=== PATIENT | female | born 1960 | race Caucasian/White ===

== ENCOUNTER 2019-10-27 08:51 | Inpatient (IN) | payer MEDICARE ==
[~2019-10-27] VITALS: Ht 170.2 cm; Wt 123.4 kg
[2019-10-27] VITALS (13 sets, daily range): BP systolic 84–102; BP diastolic 65–77
[2019-10-27] MEDS ORDERED: SODIUM CHLORIDE 0.9% 1000ML 1,000 ML IV STA (09:07)
--- NOTE | 2019-10-27 09:49 | NUR ---
BARRIOS [address] FOLLOWING STERILE POLICY. SAMPLE OBTAINED AND SENT. ALL PER VERBAL ORDER RUBY MEDEIROS. PT TOLERATED WELL. BARRIOS DRAINING TO GRAVITY.
[2019-10-27] MEDS ORDERED: SODIUM CHLORIDE 0.9% 250ML 250 ML ONE ×2 (09:51→10:33)
[2019-10-27 10:01] LABS: BASOPHILS % 0.5 % (0.0-1.0); EOSINOPHILS # (AUTO) 0.1 (0.0-0.4); EOSINOPHILS % 1.3 % (0.0-6.0); HEMATOCRIT 42.9 % (34.2-44.1); HEMOGLOBIN 14.3 g/dL (12.0-16.0); LYMPHOCYTES # (AUTO) 1.1 (1.0-3.2); LYMPHOCYTES % 28.6 % (18.0-39.1); MEAN CORPUSCULAR HEMOGLOBIN 29.6 pg (28-32); MEAN CORPUSCULAR HGB CONC 33.3 g/dL (31-35); MEAN CORPUSCULAR VOLUME 88.8 fL (81-99); MONOCYTES # (AUTO) 0.5 (0.2-0.8); MONOCYTES % 12.1 % (4.4-11.3); NEUTROPHILS # (AUTO) 2.3 (2.1-6.9); NEUTROPHILS % 57.2 % (38.7-80.0); PLATELET COUNT 111 x10e3/uL (140-360); RED BLOOD COUNT 4.83 x10e6/uL (3.6-5.1); RED CELL DISTRIBUTION WIDTH 18.1 % (11.7-14.4)
[2019-10-27 10:17] LABS: CLARITY,URINE CLEAR (CLEAR); COLOR,URINE YELLOW (YELLOW); LEUKOCYTE ESTERASE ,URINE TRACE (NEGATIVE); NITRITE,URINE POSITIVE (NEGATIVE); PROTEIN,URINE DIPSTICK NEGATIVE (NEGATIVE)
[2019-10-27 10:18] LABS: BILIRUBIN,URINE NEGATIVE (NEGATIVE); KETONES,URINE NEGATIVE (NEGATIVE); URINE UROBILINOGEN 0.2 mg/dL (0.2 - 1)
[2019-10-27 10:29] LABS: CREATINE KINASE MB 1.5 ng/mL (0-5.0)
[2019-10-27 10:30] LABS: ALBUMIN 3.7 g/dL (3.5-5.0); ALBUMIN/GLOBULIN RATIO 1.3 (0.8-2.0); ANION GAP 19.4 mmol/L (8-16); BACTERIA,URINE MANY /HPF; CALCIUM 9.5 mg/dL (8.4-10.2); CREATININE, SERUM 3.06 mg/dL (0.57-1.11); MAGNESIUM 2.3 MG/DL (1.3-2.1); PARTIAL THROMBOPLASTIN TIME 29.7 seconds (23.8-35.5); POTASSIUM 3.4 mmol/L (3.5-5.1); RBC,URINE 0-5 /HPF (0-5)
[2019-10-27 10:31] LABS: MUCUS,URINE FEW (RARE)
[2019-10-27 10:32] LABS: EPITHELIAL CELLS,URINE MODERATE /LPF
[2019-10-27 10:42] LABS: B-TYPE NATRIURETIC PEPTIDE2 2231.2 pg/mL (0-100)
[2019-10-27 10:46] LABS: FREE THYROXINE INDEX 2.8591 (1.4-3.8); THYROID STIMULATING HORMONE 10.23 uIU/mL (0.350-4.940)
--- NOTE | 2019-10-27 10:55 | Diagnostic Imaging Report ---
Chest, 1 view, 10/27/2019. History: Shortness of breath. Comparison: None available. Findings: The cardiomediastinal silhouette and pulmonary vasculature are prominent. There is no focal consolidation or effusion Left subclavian AICD is present. Are no acute osseous or soft tissue abnormalities. Impression: Cardiomegaly and pulmonary vascular congestion. Signed by: Guicho Shields on 10/27/2019 10:53 AM
[2019-10-27] MEDS ORDERED: HYDROCORTISONE SOD SUCCINATE 100 MG VIAL IV ONE (11:00)
[2019-10-27] MEDS ORDERED: ONDANSETRON HCL INJ 2MG/ML 2ML 2 MG/ML VIAL IV PRN (11:15)
[2019-10-27] MEDS ORDERED: LEVOTHYROXINE SODIUM 100 MCG/VIAL IV ONE (11:20)
[2019-10-27] MEDS ORDERED: VANCOMYCIN 1GM/NS 250 ML 250 ML IV ONE (11:30)
[2019-10-27 11:34] LABS: INR 1.38; PROTHROMBIN TIME 17.8 seconds (11.9-14.5)
[2019-10-27] MEDS ORDERED: SODIUM CHLORIDE 0.9% 500ML 500 ML ONE (11:42)
[2019-10-27] MEDS: CEFEPIME 1GM/NS 0.9% 50 ML 50 ML IV SCH ×2 (11:50→23:43)
--- OUTSIDE RECORDS SUMMARY | 2019-10-27 12:14 | XMS REPORT ---
Author Author [facility] Address Unknown Phone Unavailable Care Team Providers Care [place]ene[facility] Department Manager Name Role Phone Pedro BELTRAN Unavailable Unavailable Problems This patient has no known problems. Allergies, Adverse Reactions, Alerts This patient has no known allergies or adverse reactions. Medications This patient has no known medications. Results Test Description Test Time Test Comments Text Results Atomic Results Result Comments CHEST SINGLE (PORTABLE) 2019-10-27 10:52:00 [place] [address] Patient Name: MARIA EUGENIA SALAZAR MR #: [id number] : 1960 Age/Sex: 59/F Req #: [id number] Adm Physician: Ordered by: ZAMZAM BELTRAN MD Report #: [id number] Location: ER Room/Bed: Procedure: [id number] DX/CHEST SINGLE (PORTABLE) Exam Date: 10/27/19 Exam Time: 1000 REPORT STATUS: Signed Chest, 1 view, 10/27/2019. History: Shortness of breath. Comparison: None available. Findings: The cardiomediastinal silhouette and pulmonary vasculature are prominent. There is no focal consolidation or effusion Left subclavian AICD is present. Are no acute osseous or soft tissue abnormalities. Impression: Cardiomegaly and pulmonary vascular congestion. Signed by: Guicho Shields on 10/27/2019 10:53 AM Dictated By: GUICHO SHIELDS MD [id number] Transcribed By: RONNELL on 10/27/19 1053 COPY TO: ZAMZAM BELTRAN MD
[2019-10-27] MEDS ORDERED: SODIUM CHLORIDE 0.9% 500ML 500 ML IV SCH (12:15)
--- NOTE | 2019-10-27 13:56 | NUR ---
200 mL removed from patients harper catheter
--- NOTE | 2019-10-27 14:02 | NUR ---
attempted to call report was told that nurse would call back
--- NOTE | 2019-10-27 14:24 | Diagnostic Imaging Report ---
EXAMINATION: CHEST XRAY LINE PLACEMENT INDICATION: ^RIJ CENTRAL LINE ^[id number] ^[id number] COMPARISON: None FINDINGS: AP view TUBES and LINES: A right internal jugular central venous catheter terminates in the expected location of the upper SVC. Left mechanical cardiac device. LUNGS: Lungs are well inflated. Fullness of the pulmonary vasculature. No focal consolidation. PLEURA: No pleural effusion or pneumothorax. HEART AND MEDIASTINUM: The cardiac silhouette is enlarged. BONES AND SOFT TISSUES: No acute osseous lesion. Soft tissues are unremarkable. UPPER ABDOMEN: No free air under the diaphragm. IMPRESSION: 1. The tip of the right IJ central venous catheter projects over the expected location of the upper SVC. 2. Cardiomegaly with central pulmonary venous congestion. Signed by: Gaston Kwon MD on 10/27/2019 2:21 PM
[2019-10-27] MEDS ORDERED: DIGOXIN125 MCG PO (14:39)
[2019-10-27] MEDS ORDERED: MAGNESIUM OXID400 MG PO (14:39)
[2019-10-27] MEDS ORDERED: BUMETANIDE1 MG PO (14:39)
[2019-10-27] MEDS ORDERED: METOPROLOL SUCC50 MG PO ×2 (14:39)
[2019-10-27] MEDS ORDERED: AMBIEN10 MG PO (14:39)
[2019-10-27] MEDS ORDERED: AMIODARONE HCL200 MG PO (14:39)
[2019-10-27] MEDS ORDERED: PANTOPRAZOLE SO40 MG PO (14:39)
[2019-10-27] MEDS ORDERED: LISINOPRIL2.5 MG PO (14:39)
[2019-10-27] MEDS ORDERED: ZOLPIDEM TARTRATE 10 MG TAB PO PRN (16:30)
[2019-10-27] MEDS ORDERED: BUMETANIDE INJ 0.25MG/ML 4ML VIAL IV NR (16:50)
[2019-10-27] MEDS: FUROSEMIDE INJ 100 MG in SODIUM CHLORIDE 0.9% 100 ML 90 ML IV SCH (18:10)
[2019-10-27 18:52] LABS: CREATINE KINASE 49 IU/L (29-168)
[2019-10-27] MEDS ORDERED: ACETAMINOPHEN 325 MG TAB ONE (21:07)
[2019-10-27] MEDS: ACETAMINOPHEN 325 MG TAB PO PRN (21:23)
--- NOTE | 2019-10-27 23:41 | Consultation ---
DATE OF CONSULTATION: Pulmonary Critical Care consultation CHIEF COMPLAINT: Leg edema, fatigue and unsteadiness. HISTORY OF PRESENT ILLNESS: The patient is a 59-year-old woman with severe cardiac disease. She has a history of cardiomyopathy. She has required several ablations in the past and has had a pacemaker placed. Recently, she has noticed worsening leg swelling. She had a venous duplex done as an outpatient about three weeks ago in a cardiology office that was negative. She also reports worsening fatigue. She notes a decreased appetite and non steadiness. She has some dyspnea. She does not complain of cough or fevers. PAST SURGICAL HISTORY: 1. Status post gastric bypass surgery in 2003. 2. Status post pacemaker placement. 3. Status post cardiac ablations. PAST MEDICAL HISTORY: 1. History of pulmonary embolism about 18 years ago. 2. History of systolic cardiomyopathy and systolic congestive heart failure. 3. History of chronic renal insufficiency. SOCIAL HISTORY: The patient has never smoked. She is not a drinker. FAMILY HISTORY: The patient does not have any significant family history. REVIEW OF SYSTEMS: The patient is afebrile. There is no headache. She has no neck pain. The oropharynx is normal. She does not complain of any chest pain. She notes dyspnea. She does not have cough. She has no abdominal pain. There is no nausea or vomiting. She complains of severe bilateral leg edema. She feels weak and unsteady. PHYSICAL EXAMINATION: VITAL SIGNS: The patient is afebrile. The blood pressure is 93/65 and the saturation is 100%. The pulse is 86. HEENT: Shows no facial swelling or erythema. Oropharynx is normal. LYMPHATIC: Shows no submandibular, cervical, or supraclavicular adenopathy. CARDIAC: Reveals regular rate and rhythm with normal S1, S2. LUNGS: Auscultation of lungs shows clear breath sounds bilaterally. There is no wheezing. ABDOMEN: Soft, nontender. There is no rebound or guarding. EXTREMITIES: Shows 3 to 4+ leg edema. LABORATORY DATA: The white blood cell count is 3.98 and the hemoglobin is 14.3. The platelet count is a 111. The BUN to creatinine ratio is 58 to 3.06. The carbon dioxide is 17. The creatinine is increased to 3.06. Magnesium is 2.3 and the total bilirubin is 2.5. The TSH is 10.2 and a free T4 index is normal. The thyroxine is 7.56 and T3 uptake is 37.8. IMPRESSION: 1. Acute on chronic systolic congestive heart failure. 2. Acute on chronic renal failure. 3. Severe bilateral leg edema. 4. 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 5. Euthyroid sick syndrome. PLAN: 1. Diuresis. 2. Echocardiogram and Cardiology evaluation. 3. Venous duplex. 4. Continue to monitor renal function. 5. Consider nephrology consultation. Geovanny Long MD [facility]/MODL /[id number]
[2019-10-28] VITALS (29 sets, daily range): BP systolic 71–105; BP diastolic 52–70
[2019-10-28 01:45] LABS: CREATINE KINASE MB 0.9 ng/mL (0-5.0)
--- NOTE | 2019-10-28 03:32 | History and Physical ---
CHIEF COMPLAINT: Shortness of breath and inability to walk and palpitations. HISTORY OF PRESENT ILLNESS: Ms. Evelia Larsen with a history of congestive heart failure, history of hypertension, history of pacemaker placement, history of palpitations, and history of hyperlipidemia, was in her usual state of health until the patient started to have increased shortness of breath. Two days prior to admission, the patient had fallen by the side of her sofa and had to scoot all the way to the bathroom and was not able to pick herself up. Brother had to come in and the patient was able to be picked up. The patient had a 2nd episode where she slumped and this triggered the need to come to the Emergency Room. The patient came to the ER, was found to be in congestive heart failure, admitted to the hospital and also started on IV Lasix drip. PAST MEDICAL HISTORY: History of congestive heart failure, history of reflux esophagitis, history of hypertension, history of hyperlipidemia, history of atrial fibrillation, history of insomnia. MEDICATIONS: Medicines she take at home are amiodarone 200 mg twice a day, Bumex 1 mg daily, digoxin 125 mcg daily, lisinopril 2.5 mg daily, magnesium oxide 400 mg daily; metoprolol, total of 100 mg at bedtime; pantoprazole 40 mg, zolpidem 10 mg. SOCIAL HISTORY: No EtOH, no IV drug abuse, and no history of smoking either. REVIEW OF SYSTEMS: Positive for shortness of breath. Negative for chest pain. No nausea. No vomiting or diarrhea. No constipation. No rectal bleeding. No hematochezia. No hematemesis. Positive for orthopnea. Positive for PND. Positive for pedal edema. Positive for headaches too. ALLERGIES: ALLERGIC TO IODINE. PHYSICAL EXAMINATION: GENERAL: The patient is alert and oriented x3, getting IV Lasix at this time. VITAL SIGNS: The patient's temperature is 97.9, pulse of 86, respirations of 25, blood pressure on arrival was 93/65, pulse oximetry of 100%. HEENT: Normocephalic and atraumatic. The patient is morbidly obese. CVS: S1 and S2 are normal. Irregular. ABDOMEN: Nontender and nondistended. EXTREMITIES: Positive for 3+ edema extending all the way to thigh. LABORATORY VALUES: The patient's white count is 3.98, hemoglobin of 14.3, and platelet count of 111. Chemistry show sodium of 138, potassium of 3.4, BUN of 58, creatinine of 3.06 with an estimated GFR of 16, magnesium is 2.3, total bilirubin is 2.5, ALT 17, AST 8. BNP was 2231. TSH of 10.231, and troponin was less than 0.01. Toxicology, digoxin levels normal, less than 0.30. Chest x-ray showed cardiomegaly and pulmonary vascular congestion. ASSESSMENT: Ms. Altamirano Chambers with: 1. Congestive heart failure, acute on chronic. 2. History of recurrent atrial fibrillation. 3. History of AICD placement. 4. Possible myxedema with elevated TSH. 5. Morbid obesity. 6. Debility. 7. Hypertension. 8. Acute kidney injury in the setting of wxweq-cs-pbznydo kidney injury. PLAN: The patient is on IV Lasix. Consult with Dr. Rahman will be done. Consult with Dr. Gaxiola is done. Orders are pending. If cardiac markers continue, monitoring and trending them. Blood cultures and urine cultures were done. Echocardiogram will be done. Further recommendation per clinical course. We will keep the patient in ICU for drip. Currently, the amiodarone will be discontinued. Possible transition into Entresto will be done and depending on the patient's blood pressure and tolerance. MD BRIANNE Dennis/TIERNEYL /[id number]
--- NOTE | 2019-10-28 04:17 | Progress Note ---
DATE: 10/27/2019 Cardiology Progress Note CONSULTING PHYSICIAN: Noah Mejia MD, Interventional Cardiology REASON FOR CONSULTATION: Heart failure. HISTORY OF PRESENT ILLNESS: A pleasant 59-year-old woman, well known to our service with history of morbid obesity, chronic systolic heart failure, nonischemic cardiomyopathy, history of atrial fibrillation, status post PVI, history of PVCs, status post ablation, chronic lymphedema, CKD, presents with worsening edema and worsening shortness of breath. Noted to have a creatinine increased to 3.06, bicarbonate dropped to 70, admitted for further care. She denies any bleeding. She denies any chest pain or syncope. REVIEW OF SYSTEMS: A 12-system review negative except as noted above. PAST MEDICAL HISTORY: As per HPI. ALLERGIES: ALLERGY TO IODINE. SOCIAL HISTORY: Negative for smoking, alcohol, or drugs. FAMILY HISTORY: Noncontributory. PHYSICAL EXAMINATION: VITAL SIGNS: Temperature 97.7, heart rate 89, blood pressure 94/68, respiratory rate 18, O2 saturation 98%, BMI 47.7. GENERAL: No acute distress, alert. NECK: JVD, distended. CHEST: Decreased breath sounds in the lower half of lung powell. CARDIOVASCULAR: Regular rate and rhythm. Normal S1, S2. Systolic ejection murmur. ABDOMEN: Soft. Bowel sounds positive. EXTREMITIES: 3+ edema, pitting. Cardiovascular medications reviewed, metoprolol succinate 50 mg daily, aspirin 81 mg daily. STUDIES: Reviewed. Potassium 3.4, sodium 138, chloride 105, BUN 58, creatinine 3.06, glucose 80. White blood cells 3.9, hemoglobin 14.3, platelets 111. INR 1.38. AST 17, ALT 8, alkaline phosphatase 93. ASSESSMENT AND PLAN: 1. A 59-year-old woman, presents with paroxysmal atrial fibrillation, acute on chronic severe systolic heart failure, acute renal failure, metabolic acidosis, thrombocytopenia, and leukopenia. Recommend initiated Lasix 5 mg/hour and titrate as necessary to achieve negative in and out, monitoring urine output. 2. Low-sodium diet. 3. Consider Renal consultation. 4. For electrolyte abnormalities, particularly metabolic abnormalities including bicarbonate 17. 5. Holding parameter for antihypertensives for now given low normal blood pressure readings. Further recommendations to follow. MD GAETANO Moreno/MODL /[id number]
[2019-10-28 05:20] LABS: HEMATOCRIT 39.7 % (34.2-44.1); HEMOGLOBIN 13.1 g/dL (12.0-16.0); LYMPHOCYTES # (AUTO) 0.6 (1.0-3.2); LYMPHOCYTES % 16.7 % (18.0-39.1); MEAN CORPUSCULAR HEMOGLOBIN 29.4 pg (28-32); MONOCYTES # (AUTO) 0.3 (0.2-0.8); NEUTROPHILS # (AUTO) 2.8 (2.1-6.9); PLATELET COUNT 101 x10e3/uL (140-360); RED BLOOD COUNT 4.46 x10e6/uL (3.6-5.1); RED CELL DISTRIBUTION WIDTH 17.8 % (11.7-14.4)
[2019-10-28 05:48] LABS: ALBUMIN 3.2 g/dL (3.5-5.0); ALBUMIN/GLOBULIN RATIO 1.3 (0.8-2.0); ALKALINE PHOSPHATASE 81 IU/L (40-150); ANION GAP 18.4 mmol/L (8-16); BLOOD UREA NITROGEN 55 mg/dL (7-26); BUN/CREATININE RATIO 20 (6-25); CARBON DIOXIDE 15 mmol/L (22-29); CHLORIDE 107 mmol/L (98-107); CHOL/HDL RATIO 3.4 (3.0-3.6); CHOLESTEROL 124 MD/DL (0-199); CREATININE, SERUM 2.72 mg/dL (0.57-1.11); EST GLOMERULAR FILTRATION RATE 18 ML/MIN (60-); GLUCOSE 124 mg/dL (74-118); HDL CHOLESTEROL 36 MG/DL (40-60); LDL CHOLESTEROL 74 MG/DL (60-130); POTASSIUM 3.4 mmol/L (3.5-5.1); SODIUM 137 mmol/L (136-145); TRIGLYCERIDES 69 MG/DL (0-149)
[2019-10-28 06:25] LABS: ALANINE AMINOTRANSFERASE < 6 IU/L (0-55)
[2019-10-28] MEDS: ASPIRIN 81 MG ENTERIC COATED PO SCH (07:58)
[2019-10-28] MEDS: PANTOPRAZOLE SOD 40 MG TABEC PO SCH (07:58)
[2019-10-28] MEDS ORDERED: DIGOXIN 0.125 MG TAB PO SCH (09:00)
[2019-10-28] MEDS ORDERED: METOPROLOL SUCCINATE 50 MG TAB XL PO SCH (09:00)
[2019-10-28] MEDS: FUROSEMIDE INJ 100 MG in SODIUM CHLORIDE 0.9% 100 ML 90 ML IV SCH (09:16)
--- NOTE | 2019-10-28 09:53 | Progress Note ---
DATE: SUBJECTIVE: The patient admitted for acute congestive heart failure, myxedema, and also for edema. The patient is currently on IV Lasix, diuresing well. Currently also on metoprolol 50 mg daily for rate control. Currently, no chest pain or shortness of breath. Feeling better. The patient is less edematous according to her. Ankles have been able to move better. OBJECTIVE: VITAL SIGNS: Temperature afebrile 98, pulse of 85 to 90s, respiration of 22, blood pressure is running in the lower side 74/59, pulse oximetry of 97% on room air. HEENT: Normocephalic and atraumatic. The patient is morbidly obese. CVS: S1 and S2, irregular rhythm. ABDOMEN: Nontender and nondistended. EXTREMITIES: Positive for edema, extending all the way to the abdomen. LABORATORY VALUES: Today's white count is 3.7, hemoglobin of 13.1, hematocrit of 39.7. Sodium 137, potassium 3.4, BUN of 55, creatinine of 2.72 with total bilirubin of 1.9. Coags normal. D-dimer is 802. ASSESSMENT: Ms. Evelia Larsen with: 1. Atrial fibrillation, paroxysmal. 2. Acute on chronic severe systolic heart failure. 3. Acute renal failure. 4. Metabolic acidosis. 5. Myxedema. 6. Hypertension. 7. History of lymphedema. PLAN: Renal consult has been ordered per Dr. De Leon. Continue chasing electrolytes and continue monitoring and replacing it. Parameters for antihypertensives have been given. Further recommendation per clinical course. We will also do a renal ultrasound to evaluate renal functions. MD BRIANNE Dennis/MODL /[id number]
--- NOTE | 2019-10-28 10:41 | NUR ---
PATIENT AMBULATED ON UNIT ON CONTINUOUS MONITORING. MINIMAL ASSISTANCE WHEN AMBULATING. MODERATE ASSISTANCE WHEN GETTING UP OUT CHAIR OR BED.
[2019-10-28] MEDS: CEFEPIME 1GM/NS 0.9% 50 ML 50 ML IV SCH ×2 (11:23→22:30)
--- NOTE | 2019-10-28 14:14 | Progress Note ---
DATE: 10/28/2019 Cardiology Progress Note SUBJECTIVE: Shortness of breath improving still present. Edema improving on Lasix drip. OBJECTIVE: VITAL SIGNS: Temperature 98 degrees, heart rate 86, blood pressure 81/60, respiratory rate . BMI 47.7. GENERAL: No acute distress. NECK: JVD distended. CHEST: Decreased breath sounds at bilateral bases. CARDIOVASCULAR: systolic murmur. No S3. No S4. ABDOMEN: Soft. Bowel sounds positive. EXTREMITIES: With 2+ edema. CARDIOVASCULAR MEDICATIONS: Reviewed. Aspirin 81 mg daily and furosemide drip. STUDIES: Reviewed. Potassium 3.4, bicarbonate 15, and creatinine 2.7. White blood cells 3.7, hemoglobin 13.1, and platelets of 101. ASSESSMENT AND PLAN: A 59-year-old woman with avnvb-yl-zalouft severe systolic heart failure, metabolic acidosis, acute renal failure, paroxysmal atrial fibrillation, leukopenia, and thrombocytopenia. RECOMMEND: 1. Continue diuretics. 2. Aspirin. 3. Monitor renal function, electrolytes, and metabolic abnormalities. . MD GAETANO Moreno/BIJU /[id number]
--- NOTE | 2019-10-28 14:19 | NUR ---
Nutrition Screen Note RD Recommendation for Physician: - Continue cardiac diet as ordered Plan of Care: RD following, monitoring for tolerance and adequacy Nutrition reason for involvement: Diagnosis - CHF Primary Diagnose(s): 1. Atrial fibrillation, paroxysmal. 2. Acute on chronic severe systolic heart failure. PMH: congestive heart failure, reflux esophagitis, hypertension, hyperlipidemia, atrial fibrillation, insomnia, gastric bypass in 2003 Ht: 67in Wt: 305lb BMI: 47.8kg/m2 IBW: 135lb+/- 10% RD Assessment: (10/28) Chart reviewed. Labs and meds reviewed. 59yo F, who was admitted for CHF and Afib. Currently on IV lasix, diuresing well. Visited pt in the room. Pt reported improvement in her appetite after fluids being removed (>50% PO intake for lunch). Pt denied any nausea or vomiting. No complain of chewing or swallowing difficulty. Pt reported gaining significant amount of weight for the last 2 months due to fluids retention. Pt was able to verbalize understanding of heart healthy diet. Pt reported being compliant with low sodium intake at home. No other question at this time. Will continue to monitor and follow. Current Diet: cardiac diet Malnutrition Evaluation (10/28/2019) The patient does not meet criteria for a specified degree of malnutrition at this time. Will re-evaluate at follow-up as appropriate. Diet Education Needs Assessment: Diet education not indicated. Nutrition Care Level: low Signed: Linda Currie, , RD, LD
--- NOTE | 2019-10-28 16:20 | Progress Note ---
DATE: SUBJECTIVE: The patient is receiving diuretics. She is negative bolus 2 L yesterday. She has less leg edema. She has no chest pain or difficulty breathing. PHYSICAL EXAMINATION: VITAL SIGNS: The patient is afebrile. The vital signs are stable. CARDIAC: Reveals regular rate and rhythm with normal S1 and S2. There are no murmurs or rubs. LUNGS: Auscultation of lungs reveals clear breath sounds bilaterally. There is no wheezing. ABDOMEN: Soft and nontender. There is no rebound or guarding. EXTREMITIES: Shows no leg edema or calf tenderness. There is no cyanosis or clubbing. SKIN: Shows no rashes. IMPRESSION: 1. Sdake-js-ssqvqda systolic congestive heart failure. 2. Zzovh-jf-nlskrgk renal failure. 3. Atrial fibrillation. 4. Abnormal thyroid studies. PLAN: 1. Continue diuresis. 2. Await completion of Nephrology evaluation. 3. Continue current cardiac regimen. 4. Possible transfer out of the intensive came today. Geovanny Long MD [facility]/MODL /[id number]
[2019-10-28] MEDS: SODIUM BICARBONATE 650 MG TAB PO SCH (17:02)
--- NOTE | 2019-10-28 18:21 | Consultation ---
DATE OF CONSULTATION: 10/28/2019 Nephrology Consultation REQUESTING PHYSICIAN: Holland Fritz MD Thank you for allowing us to participate in Ms. Larsen' care. HISTORY OF PRESENT ILLNESS: This is a 59-year-old female, history of end-stage CKD stage 3 in the past, baseline creatinine 1.5 mg% last year, primary nephrosclerosis as well as heart failure related, came with worsening weight gain, swelling, and dyspnea for the last month, although it may have been going longer. Chest x-ray showing fluid overload. She has been started on Lasix drip, diuresing well. Admission creatinine was 3.06, coming down to 2.72. She remained somewhat acidotic. Mild hypokalemia. Magnesium levels were adequate at 2.3. Digoxin level was undetectable. UA is not showing any casts, a few wbc's, so there is concern for urinary tract infection. No protein was noted. No blood was noted. Hemoglobin 13.1. PAST MEDICAL HISTORY: 1. CKD stage 3. 2. Nephrosclerosis. 3. Fluid overload/CHF. 4. Hypertension. 5. Remote history of pulmonary embolism, status post gastric bypass surgery. SOCIAL HISTORY: Does not abuse alcohol. Retired nurse. FAMILY HISTORY: No kidney problems. REVIEW OF SYSTEMS: CONSTITUTIONAL: Feels weak. NEURO: Feels weak. VASCULAR: Leg swelling. RESPIRATORY: Dyspnea is present. CARDIAC: In syncope. Rest of review is negative. PHYSICAL EXAMINATION: GENERAL: Lying in bed, in no distress. VITAL SIGNS: Temperature 98.4, pulse 86, blood pressure 80/61. HEENT: Atraumatic. NECK: With central venous catheter. CHEST: Scattered crackles at the bases. CARDIAC: Normal heart tones. EXTREMITIES: 2 to 3+ edema. ABDOMEN: Benign. NEUROLOGIC: Alert, appropriate. Speech is normal. LABORATORY DATA: White count 3.7, hemoglobin 20670, platelets 101, potassium 3.4, serum CO2 15, creatinine 2.72, BUN 55. Total bilirubin 1.9, albumin 3.2. UA as noted above. X-ray shows fluid overload. ASSESSMENT: 1. Acute kidney injury. 2. Likely cardiorenal syndrome. 3. Consider acute tubular necrosis from urinary tract infection (culture is now showing gram-negative rods). 4. The prerenal component may have been exacerbated by the lisinopril in this situation, although long-term is beneficial if she stays on an CAROL inhibitor/ARB. 5. Consider interstitial nephritis, especially with use of pantoprazole, but less likely given no WBCs. PLAN: 1. Continue Lasix drip. 2. Agree with antibiotics. 3. Avoid NSAIDs and other nephrotoxins. 4. Start sodium bicarbonate p.o. 5. Monitor renal function. 6. Get renal ultrasound. 7. No emergent need for dialysis. Thank you for allowing us to participate in Ms. Larsen' care. Jonas Durand MD [facility]/MODL /[id number]
[2019-10-28] MEDS: MIDODRINE 2.5 MG TAB PO SCH (18:34)
--- NOTE | 2019-10-28 22:09 | Diagnostic Imaging Report ---
EXAM: Renal Ultrasound INDICATION: Acute renal failure. COMPARISON: None TECHNIQUE: Transverse and longitudinal images of the kidneys and bladder were obtained. FINDINGS: Right Kidney: Length: 10.2 cm Appearance: Normal echogenicity. Collecting system: No hydronephrosis Stones: None Cyst/Mass: None Left Kidney: Length: 10.5 cm Appearance: Normal echogenicity. Collecting system: No hydronephrosis Stones: None Cyst/Mass: None Bladder: Decompressed by Morton catheter. IMPRESSION: Normal renal ultrasound exam. Signed by: Dr. Cindy Hernandez M.D. on 10/28/2019 10:07 PM
[2019-10-28] MEDS: ZOLPIDEM TARTRATE 10 MG TAB PO SCH (22:30)
[2019-10-29] VITALS (24 sets, daily range): BP systolic 75–97; BP diastolic 51–72
[2019-10-29 05:25] LABS: BASOPHILS % 0.6 % (0.0-1.0); EOSINOPHILS % 0.9 % (0.0-6.0); HEMATOCRIT 36.3 % (34.2-44.1); HEMOGLOBIN 12.3 g/dL (12.0-16.0); LYMPHOCYTES # (AUTO) 1.2 (1.0-3.2); LYMPHOCYTES % 34.2 % (18.0-39.1); MEAN CORPUSCULAR HEMOGLOBIN 29.8 pg (28-32); MEAN CORPUSCULAR HGB CONC 33.9 g/dL (31-35); MEAN CORPUSCULAR VOLUME 87.9 fL (81-99); MONOCYTES # (AUTO) 0.4 (0.2-0.8); MONOCYTES % 11.7 % (4.4-11.3); NEUTROPHILS # (AUTO) 1.8 (2.1-6.9); NEUTROPHILS % 52.3 % (38.7-80.0); PLATELET COUNT 91 x10e3/uL (140-360); RED BLOOD COUNT 4.13 x10e6/uL (3.6-5.1); RED CELL DISTRIBUTION WIDTH 17.9 % (11.7-14.4)
[2019-10-29] MEDS: MIDODRINE 2.5 MG TAB PO SCH ×3 (05:30→16:13)
[2019-10-29 05:50] LABS: ANION GAP 14.2 mmol/L (8-16); CALCIUM 8.7 mg/dL (8.4-10.2); CREATININE, SERUM 2.46 mg/dL (0.57-1.11); POTASSIUM 3.2 mmol/L (3.5-5.1)
[2019-10-29] MEDS: PANTOPRAZOLE SOD 40 MG TABEC PO SCH (07:33)
[2019-10-29] MEDS: ASPIRIN 81 MG ENTERIC COATED PO SCH (08:13)
[2019-10-29] MEDS: SODIUM BICARBONATE 650 MG TAB PO SCH ×2 (08:13→16:12)
[2019-10-29] MEDS: CEFEPIME 1GM/NS 0.9% 50 ML 50 ML IV SCH ×2 (10:25→23:04)
--- NOTE | 2019-10-29 11:18 | Progress Note ---
DATE: SUBJECTIVE: The patient is a 59-year-old female who comes in with acute congestive heart failure. The patient's EF is at 25%. The patient has a history of pacemaker. No chest pain or shortness of breath, but does have shortness of breath and dyspnea on exertion. No other complaints today. Feeling little bit better, getting continuous IV Lasix. OBJECTIVE: VITAL SIGNS: Temperature is 96.5, pulse of 89, respirations of 26, blood pressure is 80/55 with a MAP of 63, 97% O2 at room air. HEENT: Normocephalic and atraumatic. The patient is morbidly obese. CVS: S1 and S2 normal. Regular rate and rhythm. Systolic murmur present. ABDOMEN: Soft. Bowel sounds are positive. EXTREMITIES: 2+ edema with extension into the thigh area. MEDICATIONS: 1. Sodium bicarb. 2. Aspirin. 3. Pantoprazole. 4. Midrin. 5. Zolpidem. 6. Lasix drip. 7. Zofran as needed. MICROBIOLOGY: The patient's urine grew out Klebsiella pneumonia, sensitive to Rocephin and cefepime. LABORATORY VALUES: White count is 3.42 today, hemoglobin of 12.3, hematocrit of 36.3. Chemistries shows sodium 137, potassium 3.9, BUN of 57, creatinine of 2.46. Uric acid was 12.4. ASSESSMENT: Ms. Evelia Larsen with: 1. Acute on chronic severe systolic heart failure. 2. Metabolic acidosis. 3. Acute renal failure. 4. Paroxysmal atrial fibrillation. 5. Morbid obesity. 6. Debility. 7. Hypertension. 8. Myxedema. PLAN: Continue with IV Lasix. The patient's renal ultrasound showed kidneys within normal limits. Continue with bicarb. We will continue to monitor the patient along with consultants. Further recommendation per clinical course and also Physical therapy consult with Dr. Cecilio Cerda has been done secondary to the nature of her disease and also multiple comorbidities, she might benefit from inpatient rehab at [place]. MD DIMITRIS DennisJ/MODL /[id number]
--- NOTE | 2019-10-29 12:58 | Progress Note ---
DATE: SUBJECTIVE: The patient has been diuresing more. She has less leg edema. She feels better. PHYSICAL EXAMINATION: VITAL SIGNS: The patient is afebrile. The vital signs are stable. CARDIAC: Reveals regular rate and rhythm with normal S1 and S2. LUNGS: Auscultation of lungs reveals clear breath sounds bilaterally. There is no wheezing. ABDOMEN: Soft and nontender. There is no rebound or guarding. EXTREMITIES: Shows 1 to 2+ leg edema. IMPRESSION: 1. Mldbq-hb-xthlnra systolic congestive heart failure. 2. Oqypq-du-lidqiox renal failure. 3. Atrial fibrillation. 4. Abnormal thyroid studies. PLAN: 1. Continue current cardiac regimen. 2. Continue diuresis. 3. Possible inpatient rehab. Geovanny Long MD [facility]/BIJU /[id number]
[2019-10-29] MEDS: FUROSEMIDE INJ 100 MG in SODIUM CHLORIDE 0.9% 100 ML 90 ML IV SCH (16:15)
[2019-10-29] MEDS ORDERED: ONDANSETRON HCL 4 MG ORAL DISINTEGRATING TAB PO PRN (16:15)
[2019-10-29] MEDS ORDERED: POTASSIUM CHLORIDE 20MEQ/100ML 200 ML IV ONE (18:00)
--- NOTE | 2019-10-29 18:54 | Progress Note ---
DATE: 10/29/2019 Cardiology Progress Note SUBJECTIVE: Denies any chest pain or shortness of breath. OBJECTIVE: VITAL SIGNS: Temperature 97.4, heart rate 86, blood pressure 82/56, respiratory rate 17, and O2 saturation 96%. BMI 47.7. GENERAL: In no acute distress. Alert. NECK: No JVD. CHEST: Clear to auscultation. CARDIOVASCULAR: Regular rate and rhythm with occasional extra beats. Systolic murmur. No S3. No S4. On telemetry, paced rhythm with occasional couplet, PACs. ABDOMEN: Soft. Bowel sounds positive. EXTREMITIES: Left upper extremity with 2+ edema from mid arm and forearm and both lower extremities with 1+ edema. CARDIOVASCULAR MEDICATIONS: Reviewed. Midodrine 5 mg t.i.d., Lasix drip, and aspirin 81 mg daily. STUDIES: Reviewed. Potassium is 3.2, bicarbonate 18, creatinine 2.4, and glucose 82. Hemoglobin 12.3 and platelets 91. INR 1.38. ASSESSMENT AND PLAN: 1. Left upper extremity edema, new. 2. Hypokalemia. 3. Ventricular ectopy on telemetry. The patient with history of premature ventricular contractions and paroxysmal atrial fibrillation, status post left atrial appendage ligation. 4. Chronic systolic heart failure with acute decompensation, severe. 5. Acute kidney injury on chronic kidney disease. 6. Hypotension. RECOMMEND: 1. 40 mEq potassium given increased ventricular ectopy today. 2. Renal function seems to be gradually recovering. Continue to monitor. 3. Continue diuretics. Volume status improving. 4. Left upper extremity venous ultrasound to rule out DVT. Noah Mejia MD AFV/MODL /[id number]
[2019-10-29] MEDS: ZOLPIDEM TARTRATE 10 MG TAB PO SCH (23:04)
[2019-10-30] VITALS (22 sets, daily range): BP systolic 72–94; BP diastolic 48–68
[2019-10-30 06:07] LABS: ANION GAP 14.6 mmol/L (8-16); CALCIUM 8.4 mg/dL (8.4-10.2); CREATININE, SERUM 2.1 mg/dL (0.57-1.11); POTASSIUM 3.6 mmol/L (3.5-5.1)
[2019-10-30] MEDS: FUROSEMIDE INJ 100 MG in SODIUM CHLORIDE 0.9% 100 ML 90 ML IV SCH (06:30)
[2019-10-30] MEDS: MIDODRINE 2.5 MG TAB PO SCH (06:40)
[2019-10-30] MEDS: LEVOTHYROXINE SODIUM 50 MCG TAB PO SCH (07:03)
[2019-10-30] MEDS ORDERED: POTASSIUM CHLORIDE 20 MEQ TAB CR PO ONE (07:30)
[2019-10-30] MEDS ORDERED: MIDODRINE HCL 5 MG TABLET ONE (08:31)
[2019-10-30] MEDS: PANTOPRAZOLE SOD 40 MG TABEC PO SCH (08:44)
[2019-10-30] MEDS ORDERED: MIDODRINE 2.5 MG TAB PO ONE (08:50)
[2019-10-30] MEDS ORDERED: LEVOTHYROXINE SODIUM 50 MCG TAB PO ONE (09:00)
--- NOTE | 2019-10-30 09:32 | Consultation ---
DATE OF CONSULTATION: 10/29/2019 REASON FOR CONSULTATION: Debility secondary to congestive heart failure. HISTORY: The patient is a 59-year-old female with a history of congestive heart failure, history of hypertension, pacemaker placement in 2012, who came to the hospital because of increased shortness of breath and 50-pound weight gain per her report. She had a lot of edema to her legs. She has not fallen, but had slid from the chair down to the floor and could not get herself up secondary to the edema. The patient came into the hospital, found to be in congestive heart failure. She is now on IV Lasix drip. I am being asked to evaluate for rehab needs. PAST MEDICAL HISTORY: Includes congestive heart failure, history of reflux esophagitis, hypertension, hyperlipidemia, atrial fibrillation, and history of insomnia. SURGERIES: Include heart ablation x3, appendectomy, tonsillectomy, as well as cholecystectomy. She also had a pacer placed in 2011. FAMILY HISTORY: MIs and cardiac disease runs in the family. HABITS: Nonsmoker, nondrinker. SOCIAL HISTORY: Lives by herself. Now she is taking care of herself. She lives by herself in a one-story home. Sometimes she will use a walker and at other times she will not need it. ALLERGIES: IODINE. CONSTITUTIONAL REVIEW OF SYSTEMS: GENERAL: Easily fatigued. EYES: Denies. EARS: Denies. ORAL: Denies. NECK: Denies. CARDIAC: As above. LUNGS: Easily short of breath. GI: Denies. EXTREMITIES: Lymphedema positive. : Denies. SKIN: Denies. PHYSICAL EXAMINATION: GENERAL: The patient is awake, alert, oriented x3, in no apparent distress. Follows commands without difficulty. EYES: Gaze conjugate. EARS: No acute hearing loss. NECK: No JVD. HEART: Regular. ABDOMEN: Nondistended. EXTREMITIES: Functional range of motion of upper extremity she has edema to both lower extremities. She has good limited range of motion to the legs. Sensory bates, denies any numbness or tingling into her face. Manual muscle testing 4/5 strength in upper extremities bilaterally, lower extremities demonstrates 4-/5 strength throughout. Clonus negative bilaterally. Therapies will continue to work on mobility. IMPRESSION: 1. Congestive heart failure. 2. Debilitated state. 3. History of congestive heart failure. 4. Hypertension. 5. Hyperlipidemia. PLAN: She is still requires ICU treatment. We will continue supportive care to work on improving functional level, mobility, transfers and ADLs. Consider inpatient rehab as she is not back to her prior baseline level of function and plans to go back home and we could also treat her congestive heart failure, optimizing cardiac condition, so she can hopefully participate more in therapy. Precautions falls: Cautioned thank you once again for allowing participate in the care of this very interesting patient. Cecilio Cerda DO RPL/MODL /[id number]
[2019-10-30] MEDS: SODIUM BICARBONATE 650 MG TAB PO SCH ×3 (10:24→22:40)
[2019-10-30] MEDS: ASPIRIN 81 MG ENTERIC COATED PO SCH (10:24)
[2019-10-30] MEDS: METOLAZONE 5 MG TAB PO SCH (10:24)
--- NOTE | 2019-10-30 10:52 | Progress Note ---
DATE: SUBJECTIVE: A 59-year-old female who comes in with acute congestive heart failure. The patient is currently getting IV Lasix. Potassium was replaced yesterday. Complains of some left upper extremity swelling and DVT. Doppler was done. The patient's Doppler was negative. Currently, no chest pain or shortness of breath on exertion. We evaluated for inpatient rehab. PHYSICAL EXAMINATION: VITAL SIGNS: Temperature is 98.4, pulse of 89, respiration 17, blood pressure is 87/59, and pulse oximetry of 97% on room air. HEENT: Normocephalic and atraumatic. The patient is morbidly obese. CVS: S1 and S2. Regular. Ejection systolic murmur present. ABDOMEN: Nontender, nondistended. Positive for edema. EXTREMITIES: No clubbing, no cyanosis. Positive for edema. LABORATORY VALUES: White count from 10/29/2019 was 3.42, hemoglobin of 12.3 and 36.3 hematocrit. Chemistries today show sodium 137, potassium 3.6, BUN of 51, creatinine of 2.10. Uric acid was 12.4 yesterday. Calcium normal. PTH and parathyroid hormones are pending. MICROBIOLOGY: Klebsiella pneumoniae in urine culture. ASSESSMENT: 1. Acute on chronic severe systolic heart failure. 2. Metabolic acidosis. 3. Urinary tract infection. 4. Morbid obesity. 5. Paroxysmal atrial fibrillation. 6. Hypertension. 7. Myxedema. PLAN: 1. Plan today would be to continue with IV Lasix. Potassium will be replaced, 40 mEq of potassium will be given p.o. 2. The patient will be restarted back on Synthroid 50 mcg. The patient also will be getting continue with Lasix and the patient is also on midodrine for hypotensive episodes, MAP is maintained above 60. 3. Further recommendation per clinical course. We will continue to monitor the patient. The patient also has inpatient rehab consult with Dr. Cerda for physical therapy in lieu of her multiple comorbidities. MD BRIANNE Dennis/MODL /[id number]
[2019-10-30] MEDS: CEFEPIME 1GM/NS 0.9% 50 ML 50 ML IV SCH ×2 (12:09→22:40)
[2019-10-30] MEDS: MIDODRINE HCL 5 MG TABLET PO SCH ×2 (12:09→17:42)
--- NOTE | 2019-10-30 13:48 | Progress Note ---
DATE: 10/30/2019 Cardiology Progress Note SUBJECTIVE: No complaints. OBJECTIVE: VITAL SIGNS: Temperature 97.4, heart rate 86, respiratory rate 19, blood pressure 84/64, and O2 saturation 98% on room air. GENERAL: No acute distress. Alert. NECK: No JVD. CHEST: Clear to auscultation. CARDIOVASCULAR: Regular rate and rhythm. Normal S1 and S2. ABDOMEN: Soft. Bowel sounds positive. EXTREMITIES: 1+ edema. TELEMETRY: Paced rhythm. CARDIOVASCULAR MEDICATIONS: Reviewed. Midodrine 10 mg t.i.d., aspirin 81 mg daily, Bumex 2 mg q.4 hours, and metolazone 20 mg daily. STUDIES: Reviewed. Creatinine 2.1, bicarbonate 19, potassium 3.6, sodium 137, chloride 107, BUN 51, and glucose 85. Hemoglobin 12.3, white blood cells 3.4, and platelets 91. INR 1.3. ASSESSMENT AND PLAN: 1. A 59-year-old woman presents with rwhdb-kz-alqmbax severe systolic heart failure, tnufi-co-rqyxzno kidney injury. 2. Volume overload. 3. Paroxysmal atrial fibrillation with history of ablation and left atrial appendage ligation. 4. History of premature ventricular contractions, status post previous ablation with continued premature ventricular contractions and medical treatment. RECOMMEND: 1. On telemetry, less ectopy today after potassium repletion yesterday. Continue to monitor electrolytes. 2. Volume status improved. Continue diuretics. 3. Midrin uptitrated today, maintaining MAP over 60. The patient asymptomatic from blood pressure standpoint with no evidence of worsening with orthostatic position change so far. Noah Mejia MD AFNuria/MODL /[id number]
[2019-10-30] MEDS ORDERED: BUMETANIDE INJ 0.25MG/ML 4ML VIAL IV SCH (14:00)
[2019-10-30] MEDS ORDERED: ALBUMIN 5% 0.05 GM/ML BTL IV STA (16:05)
--- NOTE | 2019-10-30 16:09 | Progress Note ---
DATE: Pulmonary Critical Care Progress Note SUBJECTIVE: The patient has been switched to intermittent on Bumex. She is on amiodarone. She has less leg edema. She has less dyspnea. She is awaiting possible transfer to inpatient rehab. PHYSICAL EXAMINATION: VITAL SIGNS: The patient is afebrile. The vital signs are stable. HEENT: Shows no facial swelling or erythema. CARDIAC: Reveals regular rate and rhythm with normal S1 and S2. LUNGS: Auscultation of lungs reveals clear breath sounds bilaterally. There is no wheezing. ABDOMEN: Soft, nontender. There is no rebound or guarding. EXTREMITIES: Shows some edema, but less than previously. IMPRESSION: 1. Acute on chronic systolic congestive heart failure. 2. Acute on chronic renal insufficiency. PLAN: 1. Continue current cardiac regimen. 2. Possible transfer to inpatient rehab. 3. Continue to monitor creatinine. MD FABIO Larson/BIJU /[id number]
[2019-10-30] MEDS ORDERED: ALBUMIN 5% 250ML 500 ML IV ONE (16:15)
[2019-10-30] MEDS: BUMETANIDE 1 MG TAB PO SCH ×2 (17:42→22:40)
--- NOTE | 2019-10-30 19:00 | NUR ---
Bedside report received from Linda Rhodes RN. Care plan reviewed. Pt reports no pain or discomfort at this time, no signs of distress noted.
[2019-10-30] MEDS: ZOLPIDEM TARTRATE 10 MG TAB PO SCH (22:40)
[2019-10-31] VITALS (14 sets, daily range): BP systolic 80–96; BP diastolic 53–71
[2019-10-31] MEDS: MIDODRINE HCL 5 MG TABLET PO SCH ×3 (06:18→18:27)
[2019-10-31] MEDS: LEVOTHYROXINE SODIUM 50 MCG TAB PO SCH (06:18)
[2019-10-31 08:03] LABS: BASOPHILS % 0.3 % (0.0-1.0); EOSINOPHILS # (AUTO) 0.1 (0.0-0.4); EOSINOPHILS % 2.5 % (0.0-6.0); HEMATOCRIT 36.5 % (34.2-44.1); HEMOGLOBIN 12.2 g/dL (12.0-16.0); LYMPHOCYTES # (AUTO) 0.9 (1.0-3.2); LYMPHOCYTES % 25.9 % (18.0-39.1); MEAN CORPUSCULAR HEMOGLOBIN 29.6 pg (28-32); MEAN CORPUSCULAR HGB CONC 33.4 g/dL (31-35); MEAN CORPUSCULAR VOLUME 88.6 fL (81-99); MONOCYTES # (AUTO) 0.5 (0.2-0.8); MONOCYTES % 13.5 % (4.4-11.3); NEUTROPHILS % 57.5 % (38.7-80.0); PLATELET COUNT 80 x10e3/uL (140-360); RED BLOOD COUNT 4.12 x10e6/uL (3.6-5.1); RED CELL DISTRIBUTION WIDTH 17.7 % (11.7-14.4)
[2019-10-31 08:24] LABS: ALBUMIN 3.3 g/dL (3.5-5.0); ALBUMIN/GLOBULIN RATIO 1.4 (0.8-2.0); ANION GAP 14.1 mmol/L (8-16); CREATININE, SERUM 1.86 mg/dL (0.57-1.11); POTASSIUM 4.1 mmol/L (3.5-5.1)
[2019-10-31] MEDS: SODIUM BICARBONATE 650 MG TAB PO SCH ×3 (08:26→22:05)
[2019-10-31] MEDS: ASPIRIN 81 MG ENTERIC COATED PO SCH (08:26)
[2019-10-31] MEDS: PANTOPRAZOLE SOD 40 MG TABEC PO SCH (08:26)
[2019-10-31] MEDS: BUMETANIDE 1 MG TAB PO SCH ×3 (08:26→22:05)
[2019-10-31] MEDS: METOLAZONE 5 MG TAB PO SCH (08:26)
--- NOTE | 2019-10-31 10:08 | Progress Note ---
DATE: SUBJECTIVE: The patient is a 59-year-old female who came in with acute on chronic congestive heart failure. The patient was on IV Lasix drip till yesterday, currently off it and is on Bumex. The patient's blood pressure is still not trending down on midodrine at this time. No chest pain. No shortness of breath. She was able to walk a few feet with the help of walker and physical therapy. No chest pains at this time. OBJECTIVE: VITAL SIGNS: Temperature is 97.6, pulse of 87, respirations of 21, blood pressure is 96/71, latest one is 84/60, pulse oximetry of 96% on room air. HEENT: Normocephalic, atraumatic. The patient is morbidly obese. CVS: S1 and S2 normal. Regular rate and rhythm. ABDOMEN: Nontender, nondistended. EXTREMITIES: No clubbing, no cyanosis. Positive for 2+ edema. LABORATORY VALUES: White count is 3.42 from 10/29. Chemistries from yesterday show potassium of 3.6, BUN of 51, creatinine of 2.10, which is improving. Parathyroid hormone was 85 and PTH is still pending. Microbiology, Klebsiella pneumonia is noted. ASSESSMENT: Ms. Evelia Larsen with: 1. Acute on chronic severe congestive heart failure. 2. Metabolic acidosis. 3. Urinary tract infection. 4. Morbid obesity. 5. Paroxysmal atrial fibrillation. 6. Mixed edema and hypertension. PLAN: 1. The patient has been taken off the IV drip. We will continue on Bumex. 2. The patient will continue on Bumex. 3. Sodium bicarb for metabolic acidosis. The patient is on telemetry, can be transferred to the [facility]. Physical therapy is on board. The patient is also on midodrine for her hypertension. Dr. Cerda is working with the patient, possible discharge if possible to inpatient rehab. Further recommendations per clinical course and thyroid replacement has been done right now. MD BRIANNE Dennis/BIJU /[id number]
[2019-10-31] MEDS: CEFEPIME 1GM/NS 0.9% 50 ML 50 ML IV SCH ×2 (11:34→22:52)
--- NOTE | 2019-10-31 16:56 | Progress Note ---
DATE: 10/31/2019 Cardiology Progress Note SUBJECTIVE: No new complaints. OBJECTIVE: VITAL SIGNS: Temperature 97.9, heart rate 87, blood pressure 90/58 with a MAP of 69, respiratory rate 21, and O2 saturation 96%. BMI 47.7. GENERAL: In no acute distress. Alert. NECK: No JVD. CHEST: Clear to auscultation. CARDIOVASCULAR: Regular rate and rhythm. Normal S1 and S2. Paced rhythm on telemetry with occasional PVCs. ABDOMEN: Soft. Bowel sounds positive. EXTREMITIES: With 2+ edema to both lower extremities, overall improving. Warm extremities throughout. CARDIOVASCULAR MEDICATIONS: Reviewed. Midodrine 10 mg t.i.d.,metolazone 20 mg daily, bumetanide 2 mg t.i.d., and aspirin 81 mg daily. STUDIES: Reviewed. Creatinine 1.8, hemoglobin 12.2, platelets 80, and white blood cells 3.5. ASSESSMENT AND PLAN: A 59-year-old woman with dhxte-kq-bvtlkxi severe systolic heart failure, wlhrr-vf-ngwtitr kidney injury, presented with volume overload, paroxysmal atrial fibrillation, status post prior atrial fibrillation ablation and appendage ligation, premature ventricular contractions with history of prior premature ventricular contractions ablation, hypertension on midodrine, and lymphedema affecting both lower extremities. RECOMMENDATIONS: 1. Continue current cardiovascular medications. Continue to monitor renal function. Recovery being observed with renal function. Volume status continues to improve. Continue diuretics. Appreciate Nephrology input. 2. Continue midodrine, asymptomatic, low blood pressure reads. The patient normally ranges low baseline. Maintain MAP over 60. Noah Mejia MD AFV/MODL /[id number]
--- NOTE | 2019-10-31 19:21 | NUR ---
reports received, patient in bed awake alert oriented. verbalizes needs, no distress noted. continue monitoring on intake output and blood pressure.
[2019-10-31] MEDS: ZOLPIDEM TARTRATE 10 MG TAB PO SCH (22:05)
[2019-11-01] VITALS (14 sets, daily range): BP systolic 79–120; BP diastolic 56–80
[2019-11-01 05:38] LABS: BASOPHILS % 0.3 % (0.0-1.0); EOSINOPHILS # (AUTO) 0.1 (0.0-0.4); EOSINOPHILS % 3.4 % (0.0-6.0); HEMATOCRIT 35.9 % (34.2-44.1); LYMPHOCYTES # (AUTO) 1.3 (1.0-3.2); LYMPHOCYTES % 33.7 % (18.0-39.1); MEAN CORPUSCULAR HEMOGLOBIN 29.5 pg (28-32); MEAN CORPUSCULAR HGB CONC 33.4 g/dL (31-35); MEAN CORPUSCULAR VOLUME 88.2 fL (81-99); MONOCYTES # (AUTO) 0.5 (0.2-0.8); MONOCYTES % 13.2 % (4.4-11.3); NEUTROPHILS # (AUTO) 1.9 (2.1-6.9); NEUTROPHILS % 48.9 % (38.7-80.0); PLATELET COUNT 76 x10e3/uL (140-360); RED BLOOD COUNT 4.07 x10e6/uL (3.6-5.1); RED CELL DISTRIBUTION WIDTH 17.7 % (11.7-14.4)
[2019-11-01] MEDS: LEVOTHYROXINE SODIUM 50 MCG TAB PO SCH (05:45)
[2019-11-01] MEDS: MIDODRINE HCL 5 MG TABLET PO SCH ×3 (05:45→17:41)
[2019-11-01 06:05] LABS: ANION GAP 15.3 mmol/L (8-16); CALCIUM 9.5 mg/dL (8.4-10.2); CREATININE, SERUM 1.78 mg/dL (0.57-1.11); MAGNESIUM 1.6 MG/DL (1.3-2.1); PHOSPHORUS 2.9 MG/DL (2.3-4.7); POTASSIUM 4.3 mmol/L (3.5-5.1)
--- NOTE | 2019-11-01 07:23 | Progress Note ---
DATE: SUBJECTIVE: The patient is in ICU 193. She has been downgraded to Med/Surg. Currently, the patient is off Lasix IV and on Bumex. The patient has no chest pain or shortness of breath. She does complain of some tremors, which is new onset. No nausea, vomiting, diarrhea and no orthopnea or PND. OBJECTIVE: VITAL SIGNS: Temperature is 97.6, pulse of 84, respirations of 15, blood pressure is 92/77 with a map of 82. HEENT: Normocephalic, atraumatic. The patient is morbidly obese. CVS: S1 and S2. Regular. ABDOMEN: Soft, nontender, nondistended. EXTREMITIES: 2+ edema still present. LABORATORY VALUES: The patient's white count is 3.6, platelet count of 76, which is trending down. RDW 17.7. Chemistry, sodium 137, potassium 4.3, BUN of 54, creatinine of 1.78. Coags, D-dimer was 802 on 10/27/2019. Microbiology, Klebsiella pneumoniae in urine. ASSESSMENT: Evelia Larsen is a 59-year-old female with: 1. Acute on chronic congestive heart failure. Continue on Bumex. 2. Hypertension. Good MAP. Continue with midodrine. 3. Hypothyroidism. Continue on levothyroxine. 4. Morbid obesity. 5. Paroxysmal atrial fibrillation. 6. Hypertension. PLAN: Continue on Bumex, sodium bicarb for metabolic acidosis. Continue with physical therapy. Plan to discharge to Med/Surg and possible transfer to rehab at [place] for continuum of therapy. Further recommendation per clinical course. We will continue monitor the patient. The patient is stable. Holland Fritz MD ASJ/MODL /[id number]
[2019-11-01] MEDS: PANTOPRAZOLE SOD 40 MG TABEC PO SCH (07:57)
[2019-11-01] MEDS: SODIUM BICARBONATE 650 MG TAB PO SCH ×2 (08:00→17:40)
[2019-11-01] MEDS: METOLAZONE 5 MG TAB PO SCH (08:00)
[2019-11-01] MEDS: BUMETANIDE 1 MG TAB PO SCH ×3 (08:00→20:34)
[2019-11-01] MEDS: ASPIRIN 81 MG ENTERIC COATED PO SCH (08:00)
--- NOTE | 2019-11-01 10:39 | Progress Note ---
DATE: 11/01/2019 Cardiology Progress Note SUBJECTIVE: No complaints. OBJECTIVE: VITAL SIGNS: Temperature 96.7, heart rate 86, blood pressure 91/66, respiratory rate 17, O2 saturation 97%. GENERAL: In no acute distress, alert. NECK: No JVD. CHEST: Clear to auscultation. CARDIOVASCULAR: Regular rate and rhythm. S1, S2. No S3 or S4. Systolic ejection murmur. ABDOMEN: Soft. Bowel sounds positive. EXTREMITIES: 2+ edema to both lower extremities. The patient sitting down since 4 o'clock this morning. TELEMETRY: Paced rhythm. CARDIOVASCULAR MEDICATIONS: Reviewed. Midodrine 10 mg every 8 hours, aspirin 81 mg daily, bumetanide 2 mg t.i.d., metolazone 20 mg daily. STUDIES: Reviewed. Sodium 137, potassium 4.3, chloride 100, bicarbonate 26, BUN 54, creatinine 1.78, glucose 84. White blood cells 3.8, hemoglobin 12, platelets 76. INR 1.3. PT 17.8, PTT 29.7. AST 17, ALT 8, alkaline phosphatase 75, total bilirubin is 2. ASSESSMENT AND PLAN: A 59-year-old woman presents with significant volume overload, lymphedema, acute on chronic severe systolic heart failure, MARIA FERNANDA on chronic kidney disease, history of atrial fibrillation status post ablation and appendage ligation, history of PVCs status post ablation. Recommend continue current cardiovascular medications and monitor electrolytes. MD GAETANO Moreno/MODL /[id number]
[2019-11-01] MEDS: CEFEPIME 1GM/NS 0.9% 50 ML 50 ML IV SCH ×2 (11:00→22:30)
[2019-11-01 11:13] LABS: CREATININE,URINE RANDOM 23.71 mg/dL (47-110); TOTAL PROTEIN, URINE 15.8 mg/dL (1-14)
[2019-11-01 11:16] LABS: PROTEIN/CREATININE RATIO,URINE 0.66
--- NOTE | 2019-11-01 18:00 | NUR ---
Pt ambulated in hallway with physical therapy this morning. Pt reports decrease in leg swelling. SCDs on bilateral legs throughout shift. Per Dr. Rahman Morton catheter may be removed. Morton removed at 1800, due to void at 0000. Pt educated on due to void time. Will continue to monitor the patient.
[2019-11-01] MEDS ORDERED: DEXTROSE 5% 1,000 ML IV SCH (19:30)
[2019-11-01] MEDS: ZOLPIDEM TARTRATE 10 MG TAB PO SCH (22:00)
[2019-11-02] VITALS (9 sets, daily range): BP systolic 91–108; BP diastolic 56–83
[2019-11-02 05:17] LABS: ALBUMIN 3.8 g/dL (3.5-5.0); ALBUMIN/GLOBULIN RATIO 1.3 (0.8-2.0); ANION GAP 21.2 mmol/L (8-16); CALCIUM 10.5 mg/dL (8.4-10.2); CREATININE, SERUM 1.77 mg/dL (0.57-1.11); POTASSIUM 4.2 mmol/L (3.5-5.1)
[2019-11-02] MEDS: MIDODRINE HCL 5 MG TABLET PO SCH ×3 (05:21→17:56)
[2019-11-02] MEDS: LEVOTHYROXINE SODIUM 50 MCG TAB PO SCH (05:21)
[2019-11-02] MEDS: PANTOPRAZOLE SOD 40 MG TABEC PO SCH (07:45)
[2019-11-02] MEDS: ASPIRIN 81 MG ENTERIC COATED PO SCH (08:37)
[2019-11-02] MEDS: BUMETANIDE 1 MG TAB PO SCH ×3 (08:37→22:09)
[2019-11-02] MEDS: SODIUM BICARBONATE 650 MG TAB PO SCH ×2 (08:37→17:56)
[2019-11-02] MEDS: METOLAZONE 5 MG TAB PO SCH (08:37)
[2019-11-02] MEDS: CEFEPIME 1GM/NS 0.9% 50 ML 50 ML IV SCH ×2 (11:17→22:09)
[2019-11-02] MEDS: RIBOFLAVIN 100 MG TAB PO SCH ×2 (11:30→22:09)
--- NOTE | 2019-11-02 14:48 | NUR ---
patient ambulated on hallway with walker independently. sitting up in recliner
[2019-11-02] MEDS ORDERED: MAGNESIUM SULFATE 2GM/50ML 50 ML IV ONE (15:15)
--- NOTE | 2019-11-02 16:13 | NUR ---
Nutrition Screen Note RD Recommendation for Physician: - Continue cardiac diet as ordered Plan of Care: RD following, monitoring for tolerance and adequacy Nutrition reason for involvement: follow up Primary Diagnose(s): 1. Atrial fibrillation, paroxysmal. 2. Acute on chronic severe systolic heart failure. PMH: congestive heart failure, reflux esophagitis, hypertension, hyperlipidemia, atrial fibrillation, insomnia, gastric bypass in 2003 Ht: 67in Wt: 305lb BMI: 47.8kg/m2 IBW: 135lb RD Assessment: (11/02) Follow up. Pt reports a good appetite and is eating >50% of meals. No N/V. Pt did not have any questions at time of visit. Will continue to monitor. (10/28) Chart reviewed. Labs and meds reviewed. 59yo F, who was admitted for CHF and Afib. Currently on IV lasix, diuresing well. Visited pt in the room. Pt reported improvement in her appetite after fluids being removed (>50% PO intake for lunch). Pt denied any nausea or vomiting. No complain of chewing or swallowing difficulty. Pt reported gaining significant amount of weight for the last 2 months due to fluids retention. Pt was able to verbalize understanding of heart healthy diet. Pt reported being compliant with low sodium intake at home. No other question at this time. Will continue to monitor and follow. Current Diet: cardiac diet Malnutrition Evaluation (10/28/2019) The patient does not meet criteria for a specified degree of malnutrition at this time. Will re-evaluate at follow-up as appropriate. Diet Education Needs Assessment: Diet education not indicated. Nutrition Care Level: low Signed: Balbina Ayala, RD, LD
--- NOTE | 2019-11-02 16:36 | NUR ---
ORDER RECEIVED FOR INPT REHAB. PT CHOSE [facility] / [facility] @ [phone]. CHOICE LETTER RESIGNED BY THE PT AND MOT INITIATED AND COPY LEFT IN MANAGER INSIDE'S OFFICE. NOTIFIED MONTY / ROMULO. FAXED REFERRAL TO FAX: [phone]. PLAN TRANSFER IN AM.
--- NOTE | 2019-11-02 17:12 | Progress Note ---
DATE: SUBJECTIVE: This is a 59-year-old female with a history of acute on chronic congestive heart failure. The patient was on IV Lasix, currently on Bumex, currently doing well. Shortness of breath is better. The patient has addition of metolazone. No chest pain. No shortness of breath. No nausea, vomiting, or diarrhea. The patient has multiple episodes of urination, wanted the catheter back. The patient has been educated and currently okay without catheterization. OBJECTIVE: VITAL SIGNS: Temperature is 98.1, pulse of 91, respirations of 20, blood pressure is 97/71 with a MAP of 80. HEENT: Normocephalic and atraumatic. Pupils are reactive to light and accommodation. CVS: S1 and S2, regular. ABDOMEN: Nontender, nondistended. EXTREMITIES: Positive for edema. LABORATORY VALUES: The patient's white count is 3.86, hemoglobin of 12, hematocrit of 35.9, platelet count is 76. Chemistry shows sodium of 138, BUN of 55, creatinine of 1.77, EGFR of 29. BNP was 1052. ASSESSMENT: 1. A 59-year-old female with acute on chronic congestive heart failure. 2. Acute kidney injury. 3. Hypertension. 4. Atrial fibrillation. 5. New onset thrombocytopenia. PLAN: Continue with current management. The patient is walking without any problems. Dr. Cerda has been consulted. The patient can be discharged to rehab when accepted to [facility]. Further recommendation per clinical course. We will continue to monitor the patient. MD BRIANNE Dennis/TIERNEYL /[id number]
[2019-11-02] MEDS: DOCUSATE SODIUM 100 MG CAP PO SCH (17:56)
--- NOTE | 2019-11-02 18:57 | Progress Note ---
DATE: 11/02/2019 Cardiology Progress Note SUBJECTIVE: Denies any chest pain. Has dyspnea on exertion to ambulation with PT. OBJECTIVE: VITAL SIGNS: Temperature 98.1, heart rate 86, blood pressure 108/79, respiratory rate 20, and O2 saturation 96%. BMI 42.5. Telemetry with paced rhythm with occasional PVCs. GENERAL: In no acute distress. Alert. NECK: No JVD. CHEST: Clear to auscultation bilaterally. CARDIOVASCULAR: Regular rate and rhythm. Normal S1 and S2. Systolic ejection murmur. No S3. No S4. ABDOMEN: Soft. Bowel sounds positive. EXTREMITIES: With 1+ edema. Warm extremities. CARDIOVASCULAR MEDICATIONS: Reviewed. Magnesium 2 g IV ordered, aspirin 81 mg daily, metolazone 10 mg daily, midodrine 10 mg every 8 hours, levothyroxine 50 mcg daily, and bumetanide 10 mg IV t.i.d. STUDIES: Sodium 138, potassium 4.2, chloride 95, bicarbonate 26, BUN 55, creatinine 1.77, and glucose 103. White blood cells 3.8, hemoglobin 12, and platelets 76. PT 17.8, PTT 29.7, and INR 1.38. AST 25, ALT 10, total bilirubin is 2.1, and alkaline phosphatase 87. ASSESSMENT AND PLAN: 1. A 59-year-old woman presents with mfqil-ks-rjgdcbv severe systolic heart failure, unpxw-ox-fsnarzr renal failure. 2. Volume overload. 3. Paroxysmal atrial fibrillation, status post ablation and appendage ligation. 4. Premature ventricular contractions with prior ablation. 5. Lymphedema. RECOMMEND: 1. Continue current cardiovascular medications. The patient likely to transfer for inpatient rehab. 2. As the patient continues to progress and improve, we will consider gradual weaning off midodrine and as blood pressure allows, can then consider resuming heart failure/cardiac medications. MD GAETANO Moreno/BIJU /[id number]
[2019-11-02] MEDS: ACETAMINOPHEN 325 MG TAB PO PRN (22:09)
[2019-11-02] MEDS: ZOLPIDEM TARTRATE 10 MG TAB PO SCH (22:09)
[2019-11-03 04:00] VITALS: BP 91/66
[2019-11-03 05:49] LABS: BASOPHILS % 0.3 % (0.0-1.0); EOSINOPHILS # (AUTO) 0.1 (0.0-0.4); EOSINOPHILS % 3.3 % (0.0-6.0); LYMPHOCYTES # (AUTO) 0.7 (1.0-3.2); LYMPHOCYTES % 17.6 % (18.0-39.1); MEAN CORPUSCULAR HEMOGLOBIN 29.2 pg (28-32); MEAN CORPUSCULAR HGB CONC 32.4 g/dL (31-35); MONOCYTES # (AUTO) 0.6 (0.2-0.8); MONOCYTES % 14.3 % (4.4-11.3); NEUTROPHILS # (AUTO) 2.6 (2.1-6.9); NEUTROPHILS % 64.2 % (38.7-80.0); PLATELET COUNT 80 x10e3/uL (140-360); RED BLOOD COUNT 4.11 x10e6/uL (3.6-5.1); RED CELL DISTRIBUTION WIDTH 17.4 % (11.7-14.4)
[2019-11-03] MEDS: LEVOTHYROXINE SODIUM 50 MCG TAB PO SCH (05:55)
[2019-11-03] MEDS: MIDODRINE HCL 5 MG TABLET PO SCH ×3 (05:55→17:28)
[2019-11-03 06:36] LABS: CALCIUM 10.3 mg/dL (8.4-10.2); CREATININE, SERUM 1.69 mg/dL (0.57-1.11)
[2019-11-03 08:00] VITALS: BP_SYST 87; BP_SYST 91; BP_DIAS 63; BP_DIAS 66
[2019-11-03] MEDS: SODIUM BICARBONATE 650 MG TAB PO SCH ×2 (08:19→16:02)
[2019-11-03] MEDS: PANTOPRAZOLE SOD 40 MG TABEC PO SCH (08:19)
[2019-11-03] MEDS: BUMETANIDE 1 MG TAB PO SCH ×2 (08:19→15:24)
[2019-11-03] MEDS: ASPIRIN 81 MG ENTERIC COATED PO SCH (08:19)
[2019-11-03] MEDS: DOCUSATE SODIUM 100 MG CAP PO SCH ×2 (08:19→16:02)
[2019-11-03] MEDS: METOLAZONE 5 MG TAB PO SCH (08:19)
[2019-11-03 08:25] VITALS: BP 87/63
[2019-11-03] MEDS ORDERED: MAGNESIUM SULFATE 2GM/50ML 50 ML IV ONE (09:45)
--- NOTE | 2019-11-03 10:50 | NUR ---
LONG-TERM ACUTE CARE DISCHARGE INFORMATION PATIENT HAS BEEN ACCEPTED TO: NAME: [facility] ADDRESS: [address] [place] [id number] ACCEPTING ATTORNEY: LILLY SMITH, ADMIN @ [phone] ACCEPTING MD: DR. WILEY ROOM: 3099 NURSE CALL REPORT TO: [phone] THE FOLLOWING DOCUMENTS MUST ACCOMPANY PATIENT FOR TRANSFER: COPIED CHART: CM MOT INFO RECEIVED FROM: [facility] ORDER/RECONCILED MED LIST: BEDSIDE NURSE [id number] DNR: N/A
[2019-11-03] MEDS: RIBOFLAVIN 100 MG TAB PO SCH (11:30)
[2019-11-03 12:00] VITALS: BP 98/53
--- NOTE | 2019-11-03 12:27 | Progress Note ---
DATE: 11/03/2019 Cardiology Progress Note SUBJECTIVE: No complaints. OBJECTIVE: VITAL SIGNS: Temperature 96.5, heart rate 86, respiratory rate 24, blood pressure 87/63, and O2 saturation 97%. The patient's MAP is 71. GENERAL: In no acute distress. Alert. NECK: No JVD. CHEST: Clear to auscultation. CARDIOVASCULAR: Regular rate and rhythm. Normal S1 and S2. Telemetry, paced rhythm with occasional PVCs. ABDOMEN: Soft. Bowel sounds positive. EXTREMITIES: 1+ edema. CARDIOVASCULAR MEDICATIONS: Reviewed. Aspirin 81 mg daily, midodrine 10 mg every 8 hours, bumetanide 2 mg t.i.d., and metolazone 10 mg daily. STUDIES: Reviewed. Potassium 4, bicarbonate 31, and creatinine 1.6. Hemoglobin 12, platelets 80, and white blood cells 3.8. ASSESSMENT AND PLAN: A 59-year-old woman presents with zcqpi-bx-kxnoqdr renal failure, volume overload, rktqd-rk-rwukbqy severe systolic heart failure, atrial fibrillation status post ablation, and left atrial appendage ligation and premature ventricular contractions, status post previous ablation. RECOMMENDATIONS: Continue current cardiovascular medications. Monitor thrombocytopenia. Continue midodrine for now and rehab. Continue rest of cardiovascular medications. MD GAETANO Moreno/TIERNEYL /[id number]
--- NOTE | 2019-11-03 14:16 | NUR ---
CVL removed; pressure to the site for 10 mins. No hematoma, dressing clean, dry, intact.
[2019-11-03 16:00] VITALS: BP 104/72
[2019-11-03] MEDS ORDERED: CEFDINIR 300 MG CAP PO SCH (17:00)
[2019-11-03 19:00] VITALS: BP 105/69
--- NOTE | 2019-11-03 21:31 | Progress Note ---
DATE: SUBJECTIVE: A 59-year-old female with a history of acute congestive heart failure, received IV Lasix drip. The patient is currently feeling better, on Bumex and metolazone. No chest pain. No shortness of breath. Actively diuresing. No nausea, vomiting, or diarrhea. Morton off. Central line off. The patient is arranged to be transferred to rehab at [facility]. OBJECTIVE: VITAL SIGNS: Currently; temperature is 97.5, pulse of 86, respirations of 26, blood pressure is 104/72, and pulse oximetry of 97%. HEENT: Normocephalic and atraumatic. Pupils are reactive to light and accommodation. CVS: S1 and S2 normal. Regular rate and rhythm. ABDOMEN: Nontender and nondistended. EXTREMITIES: No clubbing. No cyanosis. No decreased edema. LABORATORY VALUES: Hemoglobin of 12 and hematocrit of 37.0. Chemistries; BUN of 58, creatinine of 1.69, and calcium is 10.3. Coags normal. Microbiology shows Klebsiella pneumoniae. ASSESSMENT: 1. A 59-year-old female with acute on chronic congestive heart failure. 2. Acute kidney injury with chronic kidney injury. 3. Hypertension. 4. Atrial fibrillation. 5. Thrombocytopenia. PLAN: Continue same medication. CV medicines reviewed, no change. The patient can be transferred to rehab for rehabilitation. Further recommendation per clinical course. We will see the patient in [facility]. MD BRIANNE Dennis/MODL /[id number]
== END 2019-11-03 19:45 | DRG 291 ==
LOC: ER 08:51 → ERHOLD 11:14 → ICU 14:26
PROVIDERS: ADMIT Family Medicine; ATTEND Family Medicine
PROC: 02HV33Z Insertion of Infusion Device into Superior Vena Cava, Percutaneous Approach (ICD-10-PCS; principal; 2019-10-27)
DX: I13.0 Hypertensive heart and chronic kidney disease with heart failure and stage 1 through stage 4 chronic kidney disease, or unspecified chronic kidney disease (principal); I50.23 Acute on chronic systolic (congestive) heart failure; N17.9 Acute kidney failure, unspecified; E87.2 Acidosis; Z68.41 Body mass index [BMI] 40.0-44.9, adult; N39.0 Urinary tract infection, site not specified; N18.3 Chronic kidney disease, stage 3 (moderate); I48.0 Paroxysmal atrial fibrillation; E78.5 Hyperlipidemia, unspecified; K21.0 Gastro-esophageal reflux disease with esophagitis; G47.00 Insomnia, unspecified; E66.01 Morbid (severe) obesity due to excess calories; I42.8 Other cardiomyopathies; R53.81 Other malaise; E03.9 Hypothyroidism, unspecified; I89.0 Lymphedema, not elsewhere classified; D69.6 Thrombocytopenia, unspecified; D72.819 Decreased white blood cell count, unspecified; E87.6 Hypokalemia; I95.9 Hypotension, unspecified; B96.1 Klebsiella pneumoniae [K. pneumoniae] as the cause of diseases classified elsewhere; I49.3 Ventricular premature depolarization; Z98.84 Bariatric surgery status; Z95.810 Presence of automatic (implantable) cardiac defibrillator; Z91.041 Radiographic dye allergy status; Z86.711 Personal history of pulmonary embolism; Z82.49 Family history of ischemic heart disease and other diseases of the circulatory system
CPT/HCPCS: 36415; 71045; 76770; 80048; 80053; 80061; 80162; 81001; 81015; 82533; 82550; 82553; 82570; 83605; 83735; 83880; 83970; 84100; 84156; 84436; 84443; 84479; 84481; 84484; 84550; 85025; 85379; 85610; 85730; 87040; 87086; 87186; 93005; 93306; 93971; 99284; J0692; J1720; J1940; J3370; J3475; J3480; J7030; J7040; J7050; P9045

== ENCOUNTER 2019-11-17 18:05 | Inpatient (IN) | payer MEDICARE ==
[~2019-11-17] VITALS: Ht 170.2 cm; Wt 101.2 kg
[~2019-11-17 18:05] MED LIST: AMBIEN10 MG PO; AMIODARONE HCL200 MG PO; BUMETANIDE1 MG PO; DIGOXIN125 MCG PO; LISINOPRIL2.5 MG PO; MAGNESIUM OXID400 MG PO; METOPROLOL SUCC50 MG PO; PANTOPRAZOLE SO40 MG PO
[2019-11-17 19:14] LABS: CLARITY,URINE SL CLOUDY (CLEAR); COLOR,URINE STRAW (YELLOW)
--- NOTE | 2019-11-17 19:14 | Diagnostic Imaging Report ---
EXAM: CHEST SINGLE (NOT PORTABLE) DATE: 11/17/2019 6:41 PM INDICATION: Weakness, CHF ^ERMD ORDER ^[id number] ^[id number] ^Y COMPARISON: Chest x-ray number 10/27/2019 FINDINGS: Lines and tubes: Stable appearance of implanted cardiac device on the left and stable lead positions. Right IJ catheter is no longer seen. Stable moderate enlargement of the cardiac silhouette. Mild central pulmonary vascular prominence. No pulmonary consolidation, pleural effusion or pneumothorax. Upper abdomen unremarkable. No acute bony abnormality. IMPRESSION: Moderate cardiomegaly with mild central pulmonary vascular prominence. No pulmonary consolidation or pleural effusion. Signed by: Dr. Mario Alberto Young M.D. on 11/17/2019 7:12 PM
[2019-11-17 19:15] LABS: BILIRUBIN,URINE NEGATIVE (NEGATIVE); KETONES,URINE NEGATIVE (NEGATIVE); LEUKOCYTE ESTERASE ,URINE NEGATIVE (NEGATIVE); NITRITE,URINE NEGATIVE (NEGATIVE); PROTEIN,URINE DIPSTICK NEGATIVE (NEGATIVE); URINE UROBILINOGEN 0.2 mg/dL (0.2 - 1)
[2019-11-17 19:30] LABS: BACTERIA,URINE MODERATE /HPF; EPITHELIAL CELLS,URINE MODERATE /LPF; TRANSITIONAL EPI CELLS,URINE MODERATE
[2019-11-17 20:00] VITALS: BP 133/77
[2019-11-17 20:25] LABS: BASOPHILS % 0.5 % (0.0-1.0); EOSINOPHILS % 0.2 % (0.0-6.0); HEMATOCRIT 41.5 % (34.2-44.1); HEMOGLOBIN 13.4 g/dL (12.0-16.0); LYMPHOCYTES # (AUTO) 0.8 (1.0-3.2); LYMPHOCYTES % 18.3 % (18.0-39.1); MEAN CORPUSCULAR HEMOGLOBIN 29.8 pg (28-32); MEAN CORPUSCULAR HGB CONC 32.3 g/dL (31-35); MEAN CORPUSCULAR VOLUME 92.2 fL (81-99); MONOCYTES # (AUTO) 0.7 (0.2-0.8); MONOCYTES % 16.1 % (4.4-11.3); NEUTROPHILS # (AUTO) 2.7 (2.1-6.9); NEUTROPHILS % 64.4 % (38.7-80.0); PLATELET COUNT 157 x10e3/uL (140-360)
[2019-11-17 20:45] LABS: ALBUMIN 4.4 g/dL (3.5-5.0); ALBUMIN/GLOBULIN RATIO 1.6 (0.8-2.0); ANION GAP 25.4 mmol/L (8-16); CALCIUM 10.2 mg/dL (8.4-10.2); CREATININE, SERUM 3.57 mg/dL (0.57-1.11); POTASSIUM 3.4 mmol/L (3.5-5.1)
[2019-11-17] MEDS ORDERED: ONDANSETRON HCL INJ 2MG/ML 2ML 2 MG/ML VIAL IV PRN (20:45)
[2019-11-17 20:51] LABS: CREATINE KINASE MB 0.8 ng/mL (0-5.0)
[2019-11-17 21:45] LABS: INR 1.45; PROTHROMBIN TIME 18.6 seconds (11.9-14.5)
[2019-11-17 21:46] LABS: PARTIAL THROMBOPLASTIN TIME 27.5 seconds (23.8-35.5)
--- NOTE | 2019-11-17 22:00 | NUR ---
PT'S O2 SATURATION DROPPED TO 89-90% ON RA; PT PLACED ON 2L NC SUPPLEMENTAL 02. PT DENIES CP OR SOB AT THIS TIME. PT'S O2 SAT INCREASED TO 97% ON 2L NC. PT TOLERATED WELL. NAD NOTED AT THIS TIME. WILL CONTINUE TO MONITOR.
[2019-11-17] MEDS ORDERED: MIDODRINE HCL2.5 MG PO (23:07)
[2019-11-17] MEDS ORDERED: MONTELUKAST SOD10 MG PO (23:07)
[2019-11-17] MEDS ORDERED: ASPIR 8181 MG (23:07)
[2019-11-17] MEDS ORDERED: LEVOTHYROXINE50 MCG PO (23:07)
[2019-11-17] MEDS ORDERED: TEMAZEPAM15 MG (23:07)
[2019-11-17] MEDS ORDERED: VITAMIN B-121000 MCG PO (23:07)
[2019-11-17] MEDS ORDERED: DULCOLAX5 MG (23:07)
[2019-11-17] MEDS ORDERED: DOCUSATE SODIU100 MG PO (23:07)
[2019-11-17 23:08] VITALS: BP 105/72
[2019-11-17] MEDS: SODIUM CHLORIDE 0.9% 1000ML 1,000 ML IV SCH (23:09)
[2019-11-17] MEDS ORDERED: PNEUMOCOCCAL VACCINE POLYVALENT 23 MCG/0.5 ML VIAL IM SCH (23:23)
[2019-11-17 23:48] VITALS: BP 105/72
[2019-11-18] VITALS (8 sets, daily range): BP systolic 103–126; BP diastolic 58–69
[2019-11-18 04:56] LABS: BASOPHILS % 0.6 % (0.0-1.0); EOSINOPHILS # (AUTO) 0.1 (0.0-0.4); EOSINOPHILS % 1.7 % (0.0-6.0); HEMOGLOBIN 12.3 g/dL (12.0-16.0); LYMPHOCYTES # (AUTO) 0.8 (1.0-3.2); LYMPHOCYTES % 23.2 % (18.0-39.1); MEAN CORPUSCULAR HEMOGLOBIN 30.3 pg (28-32); MEAN CORPUSCULAR HGB CONC 33.2 g/dL (31-35); MEAN CORPUSCULAR VOLUME 91.1 fL (81-99); MONOCYTES # (AUTO) 0.6 (0.2-0.8); MONOCYTES % 15.6 % (4.4-11.3); NEUTROPHILS # (AUTO) 2.1 (2.1-6.9); NEUTROPHILS % 58.3 % (38.7-80.0); PLATELET COUNT 150 x10e3/uL (140-360); RED BLOOD COUNT 4.06 x10e6/uL (3.6-5.1)
[2019-11-18 05:20] LABS: ALBUMIN 3.9 g/dL (3.5-5.0); ALBUMIN/GLOBULIN RATIO 1.6 (0.8-2.0); ANION GAP 24.5 mmol/L (8-16); CALCIUM 9.7 mg/dL (8.4-10.2); CREATININE, SERUM 3.39 mg/dL (0.57-1.11); POTASSIUM 3.5 mmol/L (3.5-5.1)
[2019-11-18 05:27] LABS: CREATINE KINASE MB 0.7 ng/mL (0-5.0)
--- NOTE | 2019-11-18 07:12 | NUR ---
GAVE BEDSIDE SHIFT REPORT TO ONCOMING NURSE. CALL LIGHT WITHIN REACH. PATIENT IN BED.
--- NOTE | 2019-11-18 07:13 | NUR ---
BEDSIDE SHIFT REPORT RECEIVED FROM IT RISK AND ASSURANCE MANAGER RN, PT RESTING COMFORTABLY, NO SIGNS OF DISTRESS.
--- NOTE | 2019-11-18 07:19 | History and Physical ---
CHIEF COMPLAINT: 59-year-old female who comes in to the hospital for acute renal failure. HISTORY OF PRESENT ILLNESS: This is a 59-year-old lady with a history of chronic systolic heart failure, nonischemic cardiomyopathy, and history of atrial fibrillation, who was in usual state of health until the patient was discharged from rehab about 3 days prior to this admission. The patient was called back in because her creatinine function was increased dramatically to 3.7. The patient is back in here, getting IV fluids and also with fluid restriction. PAST MEDICAL HISTORY: History of atrial fibrillation, history of CKD, acute kidney injury, history of chronic lymphedema, history of hypothyroidism, history of cardiomyopathy, history of ICD placement, history of reflux esophagitis, and hyperlipidemia. ALLERGIES: ALLERGIC TO IODINE. REVIEW OF SYSTEMS: Positive for shortness of breath. Negative for chest pain. No nausea, vomiting, or diarrhea. No constipation. No rectal bleeding. No hematochezia. No PND. No orthopnea. Positive for pedal edema. Positive for recurring headaches too. MEDICATIONS: Amiodarone 200 mg once a day, Dulcolax as needed, Bumex 1 mg daily, vitamin B12 1000 mcg, digoxin 125 mcg, lisinopril 2.5 mg twice a day, Mag oxide 400 mg, metoprolol 50 mg, midodrine 2.5 mg, pantoprazole 40 mg, temazepam 50 mg at nighttime, and zolpidem 10 mg at nighttime. The patient's additional history includes history of hypercalcemia with hyperparathyroidism, for which she was started on binders. FAMILY HISTORY: History of atrial fibrillation in the family and also history of hypertension in the family. SOCIAL HISTORY: No EtOH. No IV drug abuse. No history of smoking. Lives by herself. PHYSICAL EXAMINATION: VITAL SIGNS: Temperature 96.5, pulse 86, respirations 18, blood pressure 106/58, and pulse oximetry 94%. HEENT: Normocephalic and atraumatic. The patient is morbidly obese. CVS: S1 and S2. Irregularly irregular. ABDOMEN: Nontender and nondistended. EXTREMITIES: No clubbing. No cyanosis. Positive for edema. LABORATORY DATA: White count 4.16, hemoglobin 13.4, hematocrit 41.5, and platelet count was 157. Chemistries initial; sodium 132, potassium 3.4, anion gap 24, creatinine 3.57, and EGFR 13. Total bilirubin 6.2, ALT and AST normal. BNP was 1750. Chest x-ray done yesterday shows moderate cardiomegaly with mild central pulmonary vascular prominence. No pulmonary consolidation or effusion. ASSESSMENT: Ms. Evelia Larsen with: 1. Acute on chronic kidney failure. 2. Acute on chronic congestive heart failure. 3. Hypertension. 4. Hyperlipidemia. 5. Morbid obesity. 6. Debility. 7. Hypothyroidism. 8. Hypercalcemia with hyperparathyroidism. PLAN: The patient is on IV hydration to see if kidney functions improve and if her acidosis improve. She continues to be on medications. Medications have been reviewed and reconciled. I will keep her off diuretics at this time. We will continue monitoring her creatinine and EGFR. Further recommendation per clinical course. Also, we will maintain and monitor her calcium levels. For further information, look in the chart. Consults with Dr. Durand and Dr. Gaxiola have been done. MD BRIANNE Dennis/MODL /[id number]
[2019-11-18 07:37] LABS: FREE THYROXINE INDEX 2.9673 (1.4-3.8); THYROID STIMULATING HORMONE 8.91 uIU/mL (0.350-4.940)
--- NOTE | 2019-11-18 07:52 | Diagnostic Imaging Report ---
EXAMINATION: CHEST SINGLE (PORTABLE) COMPARISON: Chest x-ray 11/09/2019 INDICATION: ^WEAKNESS ^[id number] ^[id number] DISCUSSION: Frontal view of the chest obtained at 0627 hours. HEART AND MEDIASTINUM: Stable cardiomegaly. Left atrial clip and pacemaker/fibrillator wires are stable in position. Pulmonary artery enlargement is stable. Increasing pulmonary venous congestion. LUNGS: The lungs are well inflated. Increased groundglass attenuation throughout the lungs. No mario alberto consolidation. PLEURA: No pleural effusion or pneumothorax. BONES AND SOFT TISSUES: No focal osseous lesion. The soft tissues are normal. IMPRESSION: Increasing pulmonary venous congestion and new groundglass attenuation of the lungs suggestive of edema. Signed by: Dr. Malick Dickerson MD on 11/18/2019 7:49 AM
[2019-11-18] MEDS: AMIODARONE HCL 200 MG TAB PO SCH ×2 (09:00→17:00)
[2019-11-18] MEDS: MIDODRINE 2.5 MG TAB PO SCH ×4 (09:00→20:15)
[2019-11-18] MEDS ORDERED: DIGOXIN 0.125 MG TAB PO SCH (09:00)
[2019-11-18] MEDS ORDERED: METOPROLOL SUCCINATE 50 MG TAB XL PO SCH (09:00)
[2019-11-18] MEDS: LISINOPRIL 2.5 MG TAB PO SCH ×2 (09:00→17:00)
[2019-11-18] MEDS: MONTELUKAST SODIUM 10 MG TAB PO SCH (10:47)
[2019-11-18] MEDS: MAGNESIUM OXIDE 400 MG TAB PO SCH (10:47)
[2019-11-18] MEDS: LEVOTHYROXINE SODIUM 50 MCG TAB PO SCH (10:47)
[2019-11-18] MEDS: DOCUSATE SODIUM 100 MG CAP PO SCH ×2 (10:47→19:17)
[2019-11-18] MEDS: ASPIRIN 81 MG CHEW TAB PO SCH (10:47)
[2019-11-18] MEDS: PANTOPRAZOLE SOD 40 MG TABEC PO SCH (10:48)
[2019-11-18] MEDS: CYANOCOBALAMIN 1,000 MCG TAB PO SCH (10:48)
[2019-11-18 13:21] LABS: CREATINE KINASE MB 0.7 ng/mL (0-5.0)
[2019-11-18] MEDS: SODIUM CHLORIDE 0.9% 1000ML 1,000 ML IV SCH (14:28)
--- NOTE | 2019-11-18 15:20 | NUR ---
Nutrition Screen Note RD Recommendation for Physician: Continue diet as ordered with fluid restriction as needed Plan of Care: RD following monitoring for diet tolerance and adequacy Nutrition reason for involvement: Nutrition Risk Trigger - MST Primary Diagnose(s): Weakness Ht:67 in Wt:214lb BMI:33.5 kg/m2 IBW:135lb RD Assessment:(11/18/2019): Initial encounter with patient. Diet Hx: pt has no known food allergies. Medications: MAR reviewed. Pt is reporting an improved Po intake/appetite. Pt with a Hx of Navya en Y in 2004, following a low sodium diet with fluid restriction due to fluid overload/systolic heart failure, HTN, lymphedema, hypothyroid on levothyroxine, GERD, Hyperlipidemia, esophagitis, MARIA FERNANDA with hypercalcemia. Pt states nausea has resolved. Current Diet: Renal diet with 1400ml fluid restriction Malnutrition Evaluation (11/18/2019) The patient does not meet criteria for a specified degree of malnutrition at this time. Will re-evaluate at follow-up as appropriate. Diet Education Needs Assessment: Diet education not indicated. Pt is knowledgeable of therapeutic diet Diet Adequacy: Meeting calorie needs, Meeting protein needs, Meeting fluid needs Tolerance: Tolerating PO Nutrition Care Level: Arturo Bolivar RD, LD, CNSC
--- NOTE | 2019-11-18 17:00 | NUR ---
PT STATES SHE CAN NO LONGER TAKE AMIODARONE, DIGOXIN, LISINOPRIL, OR METOPROLOL ORDERED BY HER MACHINE RUG CLEANER, DR. MILLER. PT ALSO WANTS DIETARY CONSULT FOR EDUCATION ON HER RENAL DIET. SPOKE WITH DR. CINDY BENJAMIN VIA PHONE WHO STATES TO CONSULT DR. MILLER AND BHARGAV TO CONSULT DIETARY FOR EDUCATION.
--- NOTE | 2019-11-18 21:26 | Consultation ---
DATE OF CONSULTATION: 11/18/2019 Cardiology Consultation CONSULTING PHYSICIAN: Noah Mejia MD, Interventional Cardiology. REASON FOR CONSULTATION: Shortness of breath. HISTORY OF PRESENT ILLNESS: Ms. Larsen is a 59-year-old [place] woman with nonischemic cardiomyopathy, chronic severe systolic heart failure, atrial fibrillation status post appendage ligation, PVCs with prior history of ablation and recurrent PVCs, status post ICD, morbid obesity, lymphedema and venous insufficiency, PAD, chronic kidney disease, who presents to the hospital with decreased appetite, fatigue and lightheadedness. She was noted to have elevated creatinine and was advised to proceed to the hospital for hydration and admission for further care. She has been receiving IV fluids overnight and her symptoms have improved including her appetite and resolution of lightheadedness. She has stable dyspnea and denies any chest pain or syncope. REVIEW OF SYSTEMS: A 12-system review is negative except for as noted above. PAST MEDICAL HISTORY: As per HPI. SOCIAL HISTORY: Negative for smoking, alcohol, or drugs. FAMILY HISTORY: Noncontributory. PHYSICAL EXAMINATION: VITAL SIGNS: Temperature 95.7, heart rate 81, blood pressure 119/69, respiratory rate 20, O2 saturation 97%, BMI 33.5. GENERAL: No acute distress, alert. NECK: No JVD. CHEST: Clear to auscultation. CARDIOVASCULAR: Regular rate and rhythm. Normal S1 and S2. No S3 or S4. Systolic ejection murmur. ABDOMEN: Soft. Bowel sounds positive. EXTREMITIES: With 2+ edema. Chronic hyperpigmented and skin thickening changes to lower extremities. Overall, edema improved compared to her baseline. CARDIOVASCULAR MEDICATIONS: Reviewed. Midodrine 5 mg t.i.d., aspirin 81 mg daily. Amiodarone, lisinopril, digoxin and metoprolol are being discontinued. IV fluids running at 125 mL an hour normal saline. STUDIES: Reviewed. Remarkable for potassium of 3.5, bicarbonate of 30, BUN 116 and a creatinine of 3.39, trending down from admission creatinine. Sodium 133, glucose 98, white blood cells 3.5, hemoglobin 12.3, platelets 150. INR 1.45, PT 18.6, PTT 27.5. AST 22, ALT 11, total bilirubin 5.1, alkaline phosphatase 116. Serial troponins are negative x3. BNP is 1750, TSH 8.9. ASSESSMENT AND PLAN: A 59-year-old woman with: 1. Djedq-vx-mirlnjz renal failure. 2. Intravascular volume depletion with elevated BUN to creatinine ratio and metabolic alkalosis. 3. Chronic systolic heart failure, severe. 4. Atrial fibrillation status post appendage ligation. 5. PVCs. RECOMMEND: 1. Discontinue IV fluids and transition to a liberalized sodium and fluid intake orally to allow better compensation more gradually given severe systolic heart failure and recent admission with volume overload. 2. Continue midodrine 5 mg t.i.d. 3. Check orthostatics in a.m. and depending on findings consider adding low-dose metoprolol 12.5 mg extended release once daily to current regimen. 4. Appreciate renal input. Noah Mejia MD AFNuria/MODL /[id number]
[2019-11-18] MEDS: TEMAZEPAM 15 MG CAP PO SCH (22:46)
[2019-11-19] VITALS (8 sets, daily range): BP systolic 108–125; BP diastolic 58–77
[2019-11-19 06:24] LABS: BASOPHILS % 0.5 % (0.0-1.0); EOSINOPHILS # (AUTO) 0.1 (0.0-0.4); EOSINOPHILS % 1.2 % (0.0-6.0); HEMATOCRIT 38.8 % (34.2-44.1); HEMOGLOBIN 12.4 g/dL (12.0-16.0); LYMPHOCYTES % 24.1 % (18.0-39.1); MEAN CORPUSCULAR HEMOGLOBIN 29.5 pg (28-32); MEAN CORPUSCULAR VOLUME 92.4 fL (81-99); MONOCYTES # (AUTO) 0.6 (0.2-0.8); MONOCYTES % 15.5 % (4.4-11.3); NEUTROPHILS # (AUTO) 2.4 (2.1-6.9); NEUTROPHILS % 58.2 % (38.7-80.0); PLATELET COUNT 139 x10e3/uL (140-360); RED CELL DISTRIBUTION WIDTH 18.1 % (11.7-14.4)
[2019-11-19 06:43] LABS: ANION GAP 23.3 mmol/L (8-16); CALCIUM 9.8 mg/dL (8.4-10.2); CREATININE, SERUM 3.07 mg/dL (0.57-1.11); POTASSIUM 3.3 mmol/L (3.5-5.1)
--- NOTE | 2019-11-19 08:03 | Progress Note ---
DATE: 11/19/2019 SUBJECTIVE: The patient is a 59-year-old female, who came in with acute renal failure. The patient was on IV fluids yesterday, taken off by Cardiology. The patient is currently having liberal fluids and also salt restriction. Currently, no chest pain, no shortness of breath. The patient's swelling has decreased. No complaints with abdominal pain or leg pain. No nausea, vomiting, or diarrhea. No constipation. OBJECTIVE: VITAL SIGNS: Temperature is 95.7, pulse of 83, respirations of 18, blood pressure is 114/75, pulse oximetry of 96%. HEENT: Normocephalic and atraumatic. Pupils are reactive. CVS: S1 and S2 irregular. ABDOMEN: Nontender, nondistended. EXTREMITIES: No clubbing. No cyanosis. Positive for edema. ASSESSMENT: Ms. Larsen is with: 1. Uyvdm-um-mzkxwmn renal failure, moderate amount of intravascular depletion. BUN is elevated with metabolic alkalosis. 2. Chronic systolic heart failure with a history of appendage ligation. 3. Atrial fibrillation. 4. Morbid obesity. 5. Hyperlipidemia. PLAN: Medicines have been changed. We will continue monitoring the patient. Renal and Cardiology on consults. Medications reviewed. The patient has been taken off her lisinopril and she is right now on metoprolol 25 mg once a day and levothyroxine will be increased to 75 mcg a day. Further recommendation per clinical course. MD BRIANNE Dennis/MODL /[id number]
[2019-11-19] MEDS: LEVOTHYROXINE SODIUM 50 MCG TAB PO SCH (08:15)
--- NOTE | 2019-11-19 08:20 | NUR ---
PT'S ORTHOSTATIC VITAL SIGNS FOLLOWS: LYING- 85 BPM, 120/77 SITTING- 85 BPM, 125/70 STANDING- 87 BPM, 125/72
[2019-11-19] MEDS ORDERED: METOPROLOL SUCCINATE 50 MG TAB XL PO SCH (09:00)
[2019-11-19] MEDS ORDERED: POTASSIUM CHLORIDE 20 MEQ TAB CR PO SCH (09:00)
[2019-11-19] MEDS: ASPIRIN 81 MG CHEW TAB PO SCH (09:50)
[2019-11-19] MEDS: DOCUSATE SODIUM 100 MG CAP PO SCH ×2 (09:50→16:48)
[2019-11-19] MEDS: MAGNESIUM OXIDE 400 MG TAB PO SCH (09:51)
[2019-11-19] MEDS: PANTOPRAZOLE SOD 40 MG TABEC PO SCH (09:52)
[2019-11-19] MEDS: MIDODRINE 2.5 MG TAB PO SCH (09:52)
[2019-11-19] MEDS: METOPROLOL SUCCINATE 25 MG TAB XL PO SCH (09:52)
[2019-11-19] MEDS: MONTELUKAST SODIUM 10 MG TAB PO SCH (09:52)
[2019-11-19] MEDS: CYANOCOBALAMIN 1,000 MCG TAB PO SCH (09:52)
--- NOTE | 2019-11-19 11:34 | Consultation ---
DATE OF CONSULTATION: 10/21/2019 REQUESTING PHYSICIAN: Holland Fritz MD REASON FOR CONSULTATION: Acute kidney injury. Thank you for allowing us to participate in Ms. Larsen' care. HISTORY OF PRESENT ILLNESS: This 59-year-old female with history of severe CHF, underlying chronic kidney disease, baseline creatinine of 1.6 to 2. Most recently, was in rehab at [facility] where it was also felt that she may have gotten volume depleted. Diuretics were held, but however chemistries continued to get worse when they were checked on outpatient basis. She was feeling poorly and felt that it was similar to when she has gotten dehydrated/volume depleted before. There is a history of lymphedema, so leg swelling often can be misleading and additionally she does have a history of ICD, severe CHF, and hence is quite labile in her fluid status. She received brief IV fluids. Chemistries are gradually improving. Now oral hydration is encouraged due to risk of fluid overload. Chest x-ray as of yesterday was still showing some pulmonary edema, although she seems to be compensating quite well. She states her breathing is close to baseline. No recent NSAIDs use are noted. However, she does recall when she was at home she was drinking very little fluids, perhaps less than a liter. She is trying to correct that where the intake is more consistent to help manage the heart failure and fluid situation better. PAST HISTORY: 1. CKD stage 3. 2. History of CHF, which is quite severe, status post AICD. 3. Lymphedema. 4. Prior history of gastric bypass. 5. Hypotension, on midodrine. 6. Hypothyroidism. 7. Reflux disease. HOME MEDICATIONS: Please see list. Her last diuretic dose was set at bumetanide 1 mg daily, coming all the way down. SOCIAL HISTORY: Does not abuse alcohol or smoking at this time. Worked as an OB nurse. FAMILY HISTORY: No kidney problems. REVIEW OF SYSTEMS: CONSTITUTIONAL: [place] weak that is better. RESPIRATORY: Denying any new dyspnea or worsening dyspnea from baseline. CARDIAC: No angina or syncope. VASCULAR: Chronic leg swelling. History of lymphedema. NEURO: Weakness is better. PHYSICAL EXAMINATION: GENERAL: Lying in bed, no distress. VITAL SIGNS: Blood pressure 114/75, temperature 97.7, pulse 83. HEENT: Grossly atraumatic. NECK: Chronic JVD. CHEST: Minimally diminished breath sounds at bases. I am actually not be able to hear any crackles in spite of the x-ray appearance yesterday. EXTREMITIES: Trace to 1+ edema, nonpitting. ABDOMEN: Benign. NEURO: Appears to be alert, appropriate. SKIN: Scattered bruising near the IV site and where the blood was drawn. LABORATORY DATA: Potassium 3.3, serum CO2 31, creatinine 3.07, which has come down from 3.7, BUN of 112, calcium 9.8. Troponins negative. TSH is 8.9. ASSESSMENT: 1. Acute kidney injury on chronic kidney disease 3. 2. Chronic kidney disease 3 from nephrosclerosis. 3. Satisfactory blood pressure. 4. Acute kidney injury is probably from intravascular volume depletion/decreased output because of this. 5. Appears to have urinary tract infection. Cultures pending at the time of this dictation. PLAN: 1. Agree with current plan to orally hydrate and holding the diuretics. 2. Avoid NSAIDs and other nephrotoxins. 3. Check urine eosinophils. MD DUDLEY Vallejo/MODL /[id number]
[2019-11-19] MEDS: MIDODRINE HCL 5 MG TABLET PO SCH ×2 (12:44→16:48)
--- NOTE | 2019-11-19 18:38 | NUR ---
PT AWAKE, ALERT, NO SIGNS OF DISTRESS, NO C/O PAIN AT THIS TIME.
[2019-11-19] MEDS: TEMAZEPAM 15 MG CAP PO SCH (22:23)
--- NOTE | 2019-11-19 23:57 | Progress Note ---
DATE: 11/19/2019 Cardiology Progress Note SUBJECTIVE: No complaints. OBJECTIVE: VITAL SIGNS: Temperature 95.7, heart rate 85, respiratory rate 20, blood pressure 119/58, and O2 saturation 97%. GENERAL: The patient is sleeping in no distress. NECK: No JVD. CHEST: Clear to auscultation. CARDIOVASCULAR: Regular rate and rhythm. Normal S1, S2. ABDOMEN: Soft. Bowel sounds positive. EXTREMITIES: No edema. CARDIOVASCULAR MEDICATIONS: Reviewed. Midodrine 5 mg t.i.d. and metoprolol succinate 25 mg daily. STUDIES: Reviewed. Potassium 3.3, creatinine 3, hemoglobin 12.4, white blood cells 4, and platelets 139. ASSESSMENT AND PLAN: A 59-year-old woman with acute on chronic renal failure, chronic severe systolic heart failure, paroxysmal atrial fibrillation, PVCs, morbid obesity, lymphedema, and nonischemic cardiomyopathy. RECOMMENDATIONS: Continue current cardiovascular medications. Liberalize sodium and p.o. fluid intake. Creatinine and sodium recovering. Monitor blood pressure following starting metoprolol. MD CastilloV/MODL /[id number]
[2019-11-20] VITALS: BP_SYST 112; BP_SYST 143; BP_DIAS 63; BP_DIAS 64
[2019-11-20 04:00] VITALS: BP 108/58
[2019-11-20 05:49] LABS: BASOPHILS % 0.5 % (0.0-1.0); EOSINOPHILS # (AUTO) 0.1 (0.0-0.4); EOSINOPHILS % 1.6 % (0.0-6.0); HEMATOCRIT 37.7 % (34.2-44.1); HEMOGLOBIN 12.2 g/dL (12.0-16.0); LYMPHOCYTES # (AUTO) 1.1 (1.0-3.2); MEAN CORPUSCULAR HEMOGLOBIN 29.7 pg (28-32); MEAN CORPUSCULAR HGB CONC 32.4 g/dL (31-35); MEAN CORPUSCULAR VOLUME 91.7 fL (81-99); MONOCYTES # (AUTO) 0.6 (0.2-0.8); MONOCYTES % 15.2 % (4.4-11.3); NEUTROPHILS % 53.4 % (38.7-80.0); PLATELET COUNT 138 x10e3/uL (140-360); RED BLOOD COUNT 4.11 x10e6/uL (3.6-5.1); RED CELL DISTRIBUTION WIDTH 17.9 % (11.7-14.4)
[2019-11-20 06:10] LABS: ANION GAP 21.9 mmol/L (8-16); CALCIUM 9.3 mg/dL (8.4-10.2); CREATININE, SERUM 2.72 mg/dL (0.57-1.11)
[2019-11-20 06:12] LABS: POTASSIUM 2.9 mmol/L (3.5-5.1)
--- NOTE | 2019-11-20 06:30 | NUR ---
SPOKE TO DR. BENJAMIN REGARDING POTASSIUM READING 2.9, NEW ORDER RECEIVED TO INCREASE K-DUR TO 40MEQ DAILY.
--- NOTE | 2019-11-20 07:00 | NUR ---
RECEIVED PATIENT AWAKE IN BED NO S/S OF DISTRESS. BED LOW, WHEELS LOCKED, SIDE RAILS X2. CALL LIGHT IN REACH WILL CONTINUE TO MONITOR PATIENT.
--- NOTE | 2019-11-20 07:38 | Progress Note ---
DATE: 11/20/2019 SUBJECTIVE: Came in with acute on chronic kidney failure. The patient was in congestive heart failure, had IV diuresis. The patient's creatinine dropped and the patient is here, currently feeling better. No chest pain. No shortness of breath. Feeling weak on ambulation. Needs physical therapy and continuum of therapy. OBJECTIVE: VITAL SIGNS: Temperature is 96.2, pulse of 85, respirations of 20, blood pressure is 108/58, pulse oximetry of 93%. HEENT: Normocephalic, atraumatic. Morbidly obese. CVS: S1 and S2 irregular. ABDOMEN: Nontender, nondistended. EXTREMITIES: Positive for 2+ edema. MEDICATIONS: She is on temazepam, docusate, metoprolol, aspirin, levothyroxine, and Zofran as needed. Urine culture was negative. LABORATORY DATA: Chemistries; sodium of 135 and BUN of 104, creatinine of 2.7 on the better side. She is getting better. ASSESSMENT: Ms. Evelia Larsen is a 59-year-old female with: 1. Acute on chronic renal failure. 2. Chronic severe systolic heart failure. 3. Paroxysmal atrial fibrillation. 4. Morbid obesity. PLAN: Plan is to discharge her on diuretics. Increase her levothyroxine to 75 mcg. For further information, look in the chart. The patient can be discharged today if okay with consultants. Replace potassium for hypokalemia. MD BRIANNE Dennis/MODL /[id number]
[2019-11-20] MEDS ORDERED: POTASSIUM CHLORIDE 20MEQ/100ML 200 ML IV ONE (07:45)
[2019-11-20 07:49] VITALS: BP 102/64
[2019-11-20 08:30] VITALS: BP 102/64
[2019-11-20] MEDS ORDERED: POTASSIUM CHLORIDE 20 MEQ TAB CR PO SCH (09:00)
[2019-11-20] MEDS: PANTOPRAZOLE SOD 40 MG TABEC PO SCH (09:22)
[2019-11-20] MEDS: MONTELUKAST SODIUM 10 MG TAB PO SCH (09:22)
[2019-11-20] MEDS: MIDODRINE HCL 5 MG TABLET PO SCH ×2 (09:22→11:56)
[2019-11-20] MEDS: LEVOTHYROXINE SODIUM 50 MCG TAB PO SCH (09:22)
[2019-11-20] MEDS: ASPIRIN 81 MG CHEW TAB PO SCH (09:22)
[2019-11-20] MEDS: DOCUSATE SODIUM 100 MG CAP PO SCH (09:22)
[2019-11-20] MEDS: MAGNESIUM OXIDE 400 MG TAB PO SCH (09:22)
[2019-11-20] MEDS: METOPROLOL SUCCINATE 25 MG TAB XL PO SCH (09:23)
[2019-11-20] MEDS: CYANOCOBALAMIN 1,000 MCG TAB PO SCH (09:23)
[2019-11-20] MEDS ORDERED: SODIUM CHLORIDE 0.9% 1000ML 1,000 ML ONE (09:23)
[2019-11-20] MEDS ORDERED: ONDANSETRON HCL 4 MG ORAL DISINTEGRATING TAB PO PRN (10:45)
--- NOTE | 2019-11-20 12:13 | Progress Note ---
DATE: 11/20/2019 SUBJECTIVE: Denies any chest pain or shortness of breath. Denies any recurrent lightheadedness or other complaints. OBJECTIVE: VITAL SIGNS: Temperature 96.4, heart rate 87, respiratory rate 22, blood pressure 102/64, O2 saturation 96% on room air. GENERAL: In no acute distress, alert. NECK: No JVD. CHEST: Clear to auscultation. CARDIOVASCULAR: Regular rate and rhythm. Normal S1, S2. Systolic ejection murmur 2/6. ABDOMEN: Soft. Bowel sounds positive. EXTREMITIES: No edema. CARDIOVASCULAR MEDICATIONS: Reviewed. Metoprolol succinate 25 mg daily, aspirin 81 mg daily. LABORATORY DATA: White blood cells 3.7, hemoglobin 12.2, platelets 138. Sodium 135, potassium 2.9, undergoing replacement. Carbon dioxide 31, chloride 85, BUN 104, creatinine trending down at 2.7, calcium 9.3, glucose 90. Uric acid elevated at 14.4. TSH 8.9. ASSESSMENT AND PLAN: A 59-year-old woman with acute renal failure, morbid obesity, paroxysmal atrial fibrillation, PVCs, lymphedema, nonischemic cardiomyopathy, chronic severe systolic heart failure, [id number] renal failure. RECOMMENDATIONS: 1. Continue current cardiovascular medications and liberalize sodium and p.o. intake. 2. Diuretic trial. We will defer decision resuming diuretic to Nephrology expertise. 3. Okay to discharge from a cardiovascular standpoint with outpatient followup in one week. MD GAETANO Moreno/BIJU /[id number]
[2019-11-20 12:23] VITALS: BP 110/69
--- NOTE | 2019-11-20 12:28 | Progress Note ---
DATE: 11/20/2019 SUBJECTIVE: Tolerating oral hydration. Chemistries have improved without any new dyspnea or worsening fluid overload that is obvious. PHYSICAL EXAMINATION: VITAL SIGNS: Temperature is 96.4, pulse 87, blood pressure 108/64. GENERAL: No distress. NECK: Chronic JVD. CHEST: Clear to auscultation. EXTREMITIES: 1+ edema. LABORATORY DATA: Creatinine is down to 2.72, BUN of 104, K is 2.9, sodium 135. ASSESSMENT: 1. Congestive heart failure. 2. Hypothyroidism. 3. Acute kidney injury on chronic kidney disease, which is likely related to intravascular volume depletion, especially given the alkalosis. 4. Hypokalemia. PLAN: Replace potassium. Continue to hold diuretics for the time being, she will let us know if the swelling seems to be worse or she is gaining fluid, may be given that she is generally quite reliable, may be reasonable to consider followup as an outpatient. We will follow along. MD DUDLEY Vallejo/BIJU /[id number]
--- NOTE | 2019-11-20 12:50 | NUR ---
removed patients iv. catheter tip intact and pressure dressing applied.
--- NOTE | 2019-11-20 13:20 | NUR ---
patient discharged from facility. patient gathered all personal belongings, discharge instructions, and follow up information. patient left unit in wheelchair and went home via private auto.
--- NOTE | 2019-12-02 07:11 | Discharge Summary ---
HOSPITAL COURSE: Ms. Larsen, who came in with acute on chronic congestive heart failure, progressive pedal edema. The patient was initially also found to have hypothyroidism. The patient was admitted to the ICU. IV Lasix drip was started and a Cardiology consult was done and also consult with Dr. Durand, Nephrology was done. The patient's laboratory values were monitored very carefully. The patient's heart failure did improve. The patient has a history of paroxysmal atrial fibrillation and morbid obesity. Lytes were checked. Levothyroxine was increased to 75 mcg. The patient also had acute renal failure and lymphedema, also history of nonischemic cardiomyopathy. Once the patient's fluid balance was maintained, the patient was discharged home. FINAL DIAGNOSES: A 59-year-old with acute renal failure, morbid obesity, paroxysmal atrial fibrillation, premature ventricular contractions, lymphedema, nonischemic cardiomyopathy, chronic severe systolic heart failure, and acute on chronic renal failure. Further information, look in the chart. The patient is to follow up with specialist, commercial loan specialist and Renal in a week's time. MD BRIANNE Dennis/MODL /[id number]
== END 2019-11-20 13:20 | disposition home or self-care (01) | DRG 291 ==
LOC: ER 18:05 → ERHOLD 21:37 → MED/SURG 23:05 → OBSVTOIN 11-18 09:21
PROVIDERS: ADMIT Family Medicine; ATTEND Family Medicine
DX: I13.0 Hypertensive heart and chronic kidney disease with heart failure and stage 1 through stage 4 chronic kidney disease, or unspecified chronic kidney disease (principal); I50.23 Acute on chronic systolic (congestive) heart failure; N17.9 Acute kidney failure, unspecified; E87.3 Alkalosis; I42.8 Other cardiomyopathies; N18.3 Chronic kidney disease, stage 3 (moderate); I48.0 Paroxysmal atrial fibrillation; Z79.01 Long term (current) use of anticoagulants; E66.01 Morbid (severe) obesity due to excess calories; Z68.34 Body mass index [BMI] 34.0-34.9, adult; I89.0 Lymphedema, not elsewhere classified; I49.3 Ventricular premature depolarization; I87.2 Venous insufficiency (chronic) (peripheral); I73.9 Peripheral vascular disease, unspecified; Z95.810 Presence of automatic (implantable) cardiac defibrillator; E03.9 Hypothyroidism, unspecified; E87.6 Hypokalemia
CPT/HCPCS: 36415; 71045; 80048; 80053; 81001; 81015; 82550; 82553; 83880; 84436; 84443; 84479; 84484; 84550; 85025; 85610; 85730; 87086; 93005; 99284; G0378; J3480; J7030

== ENCOUNTER 2019-12-18 11:31 | Inpatient (IN) | payer MEDICARE ==
[~2019-12-18] VITALS: Ht 170.2 cm; Wt 118.4 kg
[~2019-12-18 11:31] MED LIST changes: +ASPIR 8181 MG; +DOCUSATE SODIU100 MG PO; +DULCOLAX5 MG; +LEVOTHYROXINE50 MCG PO; +MIDODRINE HCL2.5 MG PO; +MONTELUKAST SOD10 MG PO; +TEMAZEPAM15 MG; +VITAMIN B-121000 MCG PO
[2019-12-18] MEDS ORDERED: FUROSEMIDE INJ 10 MG/ML 4 ML VIAL IV ONE (11:45)
[2019-12-18 12:07] LABS: BASOPHILS % 0.2 % (0.0-1.0); EOSINOPHILS % 0.4 % (0.0-6.0); HEMATOCRIT 39.6 % (34.2-44.1); HEMOGLOBIN 13.2 g/dL (12.0-16.0); LYMPHOCYTES # (AUTO) 0.9 (1.0-3.2); MEAN CORPUSCULAR HEMOGLOBIN 29.3 pg (28-32); MEAN CORPUSCULAR HGB CONC 33.3 g/dL (31-35); MONOCYTES # (AUTO) 0.6 (0.2-0.8); MONOCYTES % 10.9 % (4.4-11.3); NEUTROPHILS # (AUTO) 3.9 (2.1-6.9); NEUTROPHILS % 72.3 % (38.7-80.0); PLATELET COUNT 105 x10e3/uL (140-360); RED CELL DISTRIBUTION WIDTH 16.9 % (11.7-14.4)
[2019-12-18 12:15] LABS: BILIRUBIN,URINE NEGATIVE (NEGATIVE); CLARITY,URINE CLEAR (CLEAR); COLOR,URINE YELLOW (YELLOW); KETONES,URINE NEGATIVE (NEGATIVE); LEUKOCYTE ESTERASE ,URINE NEGATIVE (NEGATIVE); NITRITE,URINE NEGATIVE (NEGATIVE); PROTEIN,URINE DIPSTICK NEGATIVE (NEGATIVE); URINE UROBILINOGEN 0.2 mg/dL (0.2 - 1)
[2019-12-18 12:26] LABS: ALBUMIN 3.9 g/dL (3.5-5.0); ALBUMIN/GLOBULIN RATIO 1.6 (0.8-2.0); ANION GAP 19.9 mmol/L (8-16); CALCIUM 9.7 mg/dL (8.4-10.2); CREATININE, SERUM 2.91 mg/dL (0.57-1.11)
--- NOTE | 2019-12-18 12:26 | Diagnostic Imaging Report ---
EXAMINATION: CHEST SINGLE (PORTABLE) INDICATION: Shortness of breath COMPARISON: Chest radiograph 11/18/2019 FINDINGS: LINES/TUBES:Left chest AICD. EKG leads overlie the chest. LUNGS:The lungs are moderately inflated. There is perihilar fullness and indistinctness of the pulmonary vasculature. PLEURA:No pleural effusion or pneumothorax. MEDIASTINUM:Unchanged cardiomegaly. BONES/SOFT TISSUES:No acute osseous injury. ABDOMEN:No free air under the diaphragm. IMPRESSION: Unchanged cardiomegaly and central pulmonary vascular congestion. No focal pneumonia. Signed by: Lisette Almanza MD on 12/18/2019 12:22 PM
[2019-12-18 12:27] LABS: MAGNESIUM 2.7 MG/DL (1.3-2.1); PHOSPHORUS 4.5 MG/DL (2.3-4.7)
[2019-12-18 12:28] LABS: POTASSIUM 2.9 mmol/L (3.5-5.1)
[2019-12-18 12:31] LABS: BACTERIA,URINE MODERATE /HPF; EPITHELIAL CELLS,URINE FEW /LPF; RBC,URINE 0-5 /HPF (0-5); WBC,URINE (MAN) 0-5 /HPF (0-5)
[2019-12-18] MEDS ORDERED: SODIUM CHLORIDE 0.9% 1000ML 1,000 ML IV ONE (12:45)
[2019-12-18] MEDS ORDERED: POTASSIUM CHLORIDE 20MEQ/100ML 200 ML IV ONE (12:45)
[2019-12-18 12:47] LABS: THYROID STIMULATING HORMONE 16.463 uIU/mL (0.350-4.940)
[2019-12-18] MEDS ORDERED: ONDANSETRON HCL INJ 2MG/ML 2ML 2 MG/ML VIAL IV PRN (13:00)
[2019-12-18] MEDS ORDERED: LEVOTHYROXINE SODIUM 100 MCG/VIAL IV ONE (13:00)
[2019-12-18] MEDS ORDERED: ASPIRIN 81 MG CHEW TAB PO ONE (13:00)
[2019-12-18] MEDS ORDERED: SODIUM CHLORIDE FLUSH 10 ML SYR INJ PRN (13:00)
[2019-12-18] MEDS ORDERED: KCL 20MEQ/.9 SOD CHL 1,000 ML IV ONE (13:35)
[2019-12-18 14:48] VITALS: BP 107/67
[2019-12-18 15:03] VITALS: BP 107/67
[2019-12-18] MEDS ORDERED: PNEUMOCOCCAL VACCINE POLYVALENT 23 MCG/0.5 ML VIAL IM SCH (16:00)
[2019-12-18] MEDS ORDERED: METOPROLOL SUCC25 MG PO (16:52)
[2019-12-18] MEDS ORDERED: BENZONATATE100 MG PO (16:52)
[2019-12-18] MEDS ORDERED: AZELASTINE137 MCG/0. (16:52)
[2019-12-18] MEDS ORDERED: LEVOCETIRIZINE D5 MG PO (16:52)
[2019-12-18 17:32] VITALS: BP 122/78
[2019-12-18] MEDS ORDERED: DOCUSATE SODIUM 100 MG CAP PO PRN (19:15)
--- NOTE | 2019-12-18 19:26 | NUR ---
new patient consult called for dr masterson and dr. pelaez, awaiting call back.
--- NOTE | 2019-12-18 19:36 | NUR ---
spoke to dr anguiano for dr pelaez no new orders, dr pelaez will see patient in am.
--- NOTE | 2019-12-18 20:32 | History and Physical ---
HISTORY OF PRESENT ILLNESS: The patient is a 59-year-old female. This is Ms. Evelia Larsen, who has a history of congestive heart failure, acute renal failure, hypothyroidism, was usually of health until the patient had been seen by Nephrology, was asked to take Bumex and titration depending on her weight, but however the patient for the last 4 days to 1 week had extreme amount of weakness and when seen in the ED, the patient has already had two falls and the patient this morning when she woke up and walked to the bathroom, had a fall and hurt herself and came into the emergency room, was found to have hypokalemia, acute confusion, and the patient admitted for the same. PAST MEDICAL HISTORY: History of congestive heart failure, history of atrial fibrillation, history of morbid obesity, history of chronic lymphedema, history of hypothyroidism, history of chronic fatigue and coronary artery disease. PAST SURGICAL HISTORY: History of CABG, history of gastric bypass, history of cardiac ablation in the past. MEDICATIONS: She takes at home includes; aspirin 81 mg, , bisacodyl 5 mg as needed, Bumex 1 mg daily, vitamin B12 5000 mcg daily, docusate 100 mg daily, levothyroxine 75 mcg daily, magnesium oxide 400 mg daily, metoprolol 25 mg ER, midodrine 2.5 mg daily three times a day, montelukast 10 mg daily, pantoprazole 40 mg, and zolpidem 10 mg at nighttime. ALLERGIES: ALLERGIC TO IODINE AND CONTRAST MEDIA. SOCIAL HISTORY: No EtOH. No IV drug abuse. Lives by herself. Resides in a house. Most of her groceries are brought by her brother. FAMILY HISTORY: History of diabetes, history of hypertension, history of coronary artery disease. REVIEW OF SYSTEMS: Unable to obtain in detail because the patient is slightly confused. PHYSICAL EXAMINATION: GENERAL: The patient is alert and oriented, but confused. VITAL SIGNS: Temperature is 97.9, pulse is 78, respirations 20, blood pressure is 122/78, pulse oximetry 97%. HEENT: Normocephalic, atraumatic. CVS: S1 and S2 normal. Regular rate. ABDOMEN: Nontender, nondistended. LUNGS: Decreased air entry present. Positive for crackles at the lung bases. BACK: Tender in the lumbar spine. SKIN: Warm and dry. Positive for multiple ecchymoses in the upper extremities and also cuts in the upper extremities, otherwise positive for 3+ pitting edema. NEUROLOGIC: Alert and oriented x2. Slips in and out of cognition. LABORATORY VALUES: Sodium was 131, potassium of 2.9, chloride of 89, BUN of 112, creatinine of 2.91, magnesium 2.7, phosphorus of 4.5. ALT and AST normal. BNP was 2247. TSH 16. Hematology; white count 12.53, hemoglobin of 13.2, hematocrit of 39.6. Urine clear with moderate amount of bacteria. IMAGING STUDIES: Chest x-ray shows unchanged cardiomegaly. No focal pneumonia and central vascular congestion. ASSESSMENT: Ms. Ms. Altamirano Chambers with acute on chronic renal failure, acute congestive heart failure, hypokalemia, hypochloremia, myxedema and generalized deconditioning. PLAN: We will continue monitoring the patient. We will hold off on her diuretics. The patient has pain, looks very dry, and renal consult will be done. A cardiac consult will be done. We will increase her Synthroid to 100 mcg. We will continue to monitor. The patient will need aggressive physical therapy again for the deconditioning. We will monitor her H and H too. Further recommendation and clinical course. Holland Fritz MD ASJ/MODL /[id number]
[2019-12-18 21:00] VITALS: BP 122/78
[2019-12-18 21:24] LABS: CREATINE KINASE MB 1.6 ng/mL (0-5.0)
[2019-12-18] MEDS: BENZONATATE 100 MG CAP PO SCH (21:54)
[2019-12-18 21:57] VITALS: BP 99/62
[2019-12-18] MEDS: ZOLPIDEM TARTRATE 10 MG TAB PO PRN (22:06)
[2019-12-19] VITALS (8 sets, daily range): BP systolic 93–105; BP diastolic 58–75
[2019-12-19] MEDS: MIDODRINE HCL 5 MG TABLET PO SCH ×3 (06:16→18:34)
[2019-12-19] MEDS: LEVOTHYROXINE SODIUM 100 MCG TAB PO SCH (06:16)
--- NOTE | 2019-12-19 06:41 | Diagnostic Imaging Report ---
EXAMINATION: CHEST SINGLE (PORTABLE) COMPARISON: Chest x-ray 12/18/2019 INDICATION: ^SOB ^[id number] ^0600 DISCUSSION: Frontal view of the chest obtained at 0617 hours. HEART AND MEDIASTINUM: Stable cardiomegaly and pulmonary artery enlargement LINES: Pacemaker/fibrillator wires are redemonstrated. Left atrial clip is stable. LUNGS: Increasing airspace opacities in the left upper lobe and right lung base. PLEURA: No pleural effusion or pneumothorax. BONES AND SOFT TISSUES: Stable. IMPRESSION: Increasing airspace opacities in the left upper lobe and right lung base may represent edema or pneumonia. Stable cardiomegaly and vascular congestion, including pulmonary artery hypertension. Signed by: Dr. Malick Dickerson MD on 12/19/2019 6:38 AM
[2019-12-19 06:51] LABS: BASOPHILS % 0.2 % (0.0-1.0); EOSINOPHILS % 0.2 % (0.0-6.0); HEMATOCRIT 39.1 % (34.2-44.1); HEMOGLOBIN 12.5 g/dL (12.0-16.0); LYMPHOCYTES # (AUTO) 0.6 (1.0-3.2); LYMPHOCYTES % 13.3 % (18.0-39.1); MEAN CORPUSCULAR HEMOGLOBIN 28.3 pg (28-32); MEAN CORPUSCULAR VOLUME 88.5 fL (81-99); MONOCYTES # (AUTO) 0.4 (0.2-0.8); MONOCYTES % 9.9 % (4.4-11.3); NEUTROPHILS # (AUTO) 3.3 (2.1-6.9); NEUTROPHILS % 75.9 % (38.7-80.0); PLATELET COUNT 74 x10e3/uL (140-360); RED BLOOD COUNT 4.42 x10e6/uL (3.6-5.1)
[2019-12-19 07:21] LABS: ALBUMIN 3.7 g/dL (3.5-5.0); ALBUMIN/GLOBULIN RATIO 1.6 (0.8-2.0); CALCIUM 9.4 mg/dL (8.4-10.2); CREATININE, SERUM 2.85 mg/dL (0.57-1.11)
[2019-12-19 07:36] LABS: ANION GAP 17.8 mmol/L (8-16)
[2019-12-19 07:37] LABS: POTASSIUM 2.8 mmol/L (3.5-5.1)
[2019-12-19 07:46] LABS: CREATINE KINASE MB 1.7 ng/mL (0-5.0)
--- NOTE | 2019-12-19 08:03 | Progress Note ---
DATE: SUBJECTIVE: The patient is a 59-year-old female, who came in with hypokalemia, a feeling of tightness. The patient's potassium is 2.9 on arrival and the patient also was confused with some mental status changes. On arrival, the creatinine was 2.9 with a BUN of 112. Diuresis was stopped. The patient is currently resting, did take her Ambien last night, arousable, but goes right back to sleep. OBJECTIVE: VITAL SIGNS: Temperature is 96.3, pulse is 86, blood pressure is 98/71, and pulse oximetry 93%. HEENT: Normocephalic and atraumatic. Pupils are reactive. CVS: S1 and S2 distant. LUNGS: Decreased air entry. Positive for some fluid. Crackles in the lower bases. ABDOMEN: Nontender and nondistended. EXTREMITIES: Positive for 2+ edema. LABORATORY VALUES: Pending today. Potassium is 2.9, sodium of 131, and BUN of 112. IMAGING STUDIES: Done this morning showed increasing airspace opacities in left upper lobe and right lung base may be representing edema or pneumonia. Stable cardiomegaly and vascular congestion. ASSESSMENT: Ms. Evelia Larsen with: 1. Chronic congestive heart failure, diastolic. 2. History of atrial fibrillation, status post ablation. 3. Overdiuresis. PLAN: Would be to hold back on the diuresis right now and check her labs today. Renal and Cardiology has been consulted. Midodrine has been started for hypotensive episodes. We will try to hold back on psychotropic medications as much including Ambien, the patient wanted her Ambien yesterday, did get one dose of it. Maintain her electrolytes and we will continue to monitor the patient along with consultants in both Cardiology and Nephrology. MD BRIANNE Dennis/TIERNEYL /[id number]
[2019-12-19] MEDS: BENZONATATE 100 MG CAP PO SCH (08:30)
[2019-12-19] MEDS: PANTOPRAZOLE SOD 40 MG TABEC PO SCH (08:30)
[2019-12-19] MEDS: MAGNESIUM OXIDE 400 MG TAB PO SCH (08:30)
[2019-12-19] MEDS: AZELASTINE HCL 137 MCG NASAL SPRAY NS SCH ×2 (08:30→17:35)
[2019-12-19] MEDS: ASPIRIN 81 MG CHEW TAB PO SCH (08:30)
[2019-12-19] MEDS: CYANOCOBALAMIN 1,000 MCG TAB PO SCH (08:30)
[2019-12-19] MEDS: MONTELUKAST SODIUM 10 MG TAB PO SCH (08:30)
[2019-12-19] MEDS: METOPROLOL SUCCINATE 25 MG TAB XL PO SCH (08:30)
[2019-12-19] MEDS: POTASSIUM CHLORIDE 20MEQ/100ML 100 ML IV SCH ×3 (11:37→22:54)
--- NOTE | 2019-12-19 12:05 | NUR ---
DIALYSIS NURSE STILL PRESENT AT BEDSIDE.
--- NOTE | 2019-12-19 12:30 | NUR ---
Pt out of room and no family at bedside. A card was left at the bedside to indicate a missed visit from a member of the Spiritual Care team and to inform the pt and family of the availability of a Laundry Room Attendant 24 hours a day/7 days a week. A quality assurance supervisor final will follow up as able. GINNY JOHNS Laundry Room Attendant Spiritual Care Department O: [phone]
[2019-12-19] MEDS ORDERED: ALBUMIN 5% 0.05 GM/ML BTL IV ONE (13:15)
[2019-12-19] MEDS ORDERED: ALBUMIN 25% 12.5GM 50ML 50 ML IV ONE (13:45)
[2019-12-19] MEDS ORDERED: BUMETANIDE INJ 0.25MG/ML 4ML VIAL IV ONE (13:45)
[2019-12-19] MEDS ORDERED: ALBUMIN 5% 250ML 250 ML IV ONE (13:45)
--- NOTE | 2019-12-19 13:45 | Consultation ---
DATE OF CONSULTATION: 12/19/2019 HISTORY OF PRESENT ILLNESS: A 59-year-old female known to our Nephrology service with underlying history of chronic kidney disease, stage 3; history of cardiomyopathy, poor ejection fraction; atrial fibrillation, status post ablation; history of hypertension, noncompliance to fluid restriction; history of severe CHF; generalized edema; history of anasarca; history of lymphedema; and history of hypothyroidism, has been admitted with hypokalemia, myxedema. She is currently quite stuporous, sitting up, she tells me that she did not drink any fluids and then she started developing swelling of her extremities, which is why she was brought here. She is a very poor historian. She is quite stuporous, but arousable. Follows commands to some extent, but quickly falls back to sleep. Discussed with bedside RN. No narcotics or any antihistamines have been given of any kind or any Phenergan for that matter. She is currently in no apparent respiratory distress. Has an indwelling Morton catheter. Has been maintained on levothyroxine, levocetirizine, Bumex 1 mg tablets daily, and aspirin at home. ALLERGIES: SHE IS ALLERGIC TO IODINATED CONTRAST MATERIAL. CURRENT MEDICATIONS: Include aspirin 81 mg daily; Astelin 1 spray nasal b.i.d.; Tessalon Perles three times a day given her mental status, I am going to stop that at this point in time; levothyroxine 100 mcg daily; Mag oxide 400 mg daily, metoprolol 25 mg daily, midodrine 5 mg p.o. t.i.d., Singulair, ondansetron, pantoprazole, zolpidem. FAMILY HISTORY: Significant for hypertension. SOCIAL HISTORY: She does not smoke or drink. CURRENT LABORATORY DATA: White count is 4.3 and hemoglobin 12.5. Sodium 131, potassium 2.8, bicarb 24, anion gap 18, BUN 112, and creatinine 2.85. BNP of 2247. Urinalysis shows specific gravity 1.020, otherwise rbc's 0-5, wbc's 0-5, and she also has a platelet count of 74,000. PHYSICAL EXAMINATION: GENERAL: The patient is quite stuporous, arousable, sitting up, in no apparent distress with blood pressure 99/75, pulse rate 90, afebrile, respiratory rate 20, oxygen saturation 98%. HEAD AND NECK: Cornea clear. Oral mucosa moist. LUNGS: Decreased air entry at both bases. Scattered rales. HEART: S1, S2, audible. ABDOMEN: Otherwise, soft, nontender. Flanks full. EXTREMITIES: Lower extremity examination, chronic skin changes with edema, predominantly ankle and 2+ and 1+ pretibia with lymphedema like changes in bilateral lower extremities. Upper extremity 1+ edema. IMPRESSION AND PLAN: Hypokalemia, [id number] kidney failure. TSH level of 16.4, significantly hypothyroid with relatively preserved acid-base status. As far as chemistry is concerned, hyponatremia, multifactorial. PLAN: Replacing potassium aggressively. We will check magnesium and phosphorus, replace if low. I will give IV albumin and gently diurese. Obtain a urine drug screen. Thyroid replacement adjustments per Dr. Fritz. Please see orders. MD VERONICA Ashby/BIJU /[id number]
[2019-12-19] MEDS ORDERED: POTASSIUM CHLORIDE 20 MEQ TAB CR PO ONE (15:00)
[2019-12-19 15:22] LABS: AMPHETAMINES SCREEN,URINE NEGATIVE (NEGATIVE); BENZODIAZEPINES SCREEN,URINE NEGATIVE (NEGATIVE); PHENCYCLIDINE SCREEN,URINE NEGATIVE (NEGATIVE)
--- NOTE | 2019-12-19 15:26 | NUR ---
PATIENT'S SISTER, KLAUS EVANGELISTA (GALLARDO) GAVE TELEPHONE CONSENT FOR INSERTION OF PICC
--- NOTE | 2019-12-19 16:16 | Consultation ---
DATE OF CONSULTATION: 12/19/2019 Cardiology Consultation CONSULTING PHYSICIAN: Noah Mejia MD, Interventional Cardiology. REASON FOR CONSULTATION: Heart failure. HISTORY OF PRESENT ILLNESS: Ms. Larsen is a 59-year-old female with a history of chronic severe systolic heart failure, paroxysmal atrial fibrillation, status post ablation; frequent PVCs, status post ablation with recurrent PVCs, orthostatic hypotension, lymphedema, hypothyroidism who presents with increased fatigue, malaise, shortness of breath, and weakness that is generalized. She was found to have low potassium, for which replacement is initiated. Potassium remains low. Abnormal labs including BUN to creatinine ratio is elevated with a creatinine of 2.85 and a BUN of 112. She was taking diuretics, increased dose due to waning and worsening leg edema and shortness of breath. Diuretic holiday has been instituted. REVIEW OF SYSTEMS: A 12-system review is negative except for as noted above. PAST MEDICAL HISTORY: As per HPI. SOCIAL HISTORY: Negative x3. FAMILY HISTORY: Noncontributory. PHYSICAL EXAMINATION: VITAL SIGNS: Temperature- afebrile, heart rate 90, blood pressure 99/75, respiratory rate 20, and O2 sat 98%. GENERAL: No acute distress, alert. NECK: JVD is elevated at 45-degree angle. CHEST: Clear to auscultation bilaterally. CARDIOVASCULAR: Irregularly irregular rate and rhythm. Normal S1 and S2. No S3 or S4. Systolic ejection murmur, 3/6. ABDOMEN: Soft. Bowel sounds positive. EXTREMITIES: With 1+ edema. Chronic lymphedema. Overall, edema is less than her usual. CARDIOVASCULAR MEDICATIONS: Reviewed. Aspirin 81 mg daily, magnesium oxide 400 mg daily, metoprolol succinate 25 mg daily, midodrine 5 mg t.i.d. LABORATORY DATA: Sodium 131, potassium 2.8, chloride 92, bicarbonate 24, BUN 112, creatinine 2.85, glucose 100. White blood cells 4.3, hemoglobin 12.5, platelets 74. AST 23, ALT 22, alkaline phosphatase 99, total bilirubin is 4.1. ASSESSMENT AND PLAN: A 59-year-old woman with hypokalemia, intravascular volume depletion on admission now with JVD distention, history of orthostatic hypotension, premature ventricular contractions, atrial fibrillation, status post pacemaker, chronic severe systolic heart failure. RECOMMEND: 1. Replete electrolytes. 2. Diuretic holiday. 3. Midodrine p.r.n. for hypotension. 4. We will follow closely with you. MD GAETANO Moreno/MODL /[id number] MTDIsabel
--- NOTE | 2019-12-19 18:21 | NUR ---
TELEPHONE CONSENT RECEIVED FROM KLAUS NORRISALBIN (PATIENT'S SISTER) FOR INSERTION OF CENTRAL LINE. TELEPHONE CONSENT WITNESSED.
--- NOTE | 2019-12-19 19:01 | NUR ---
PT DROWSY. RESTING IN BED WITH HOB ELEVATED AT 90 DEGREE ANGLE. NO DISTRESS NOTED. ACYANOTIC. REPORT RECEIVED BY ONCOMING NURSE.
[2019-12-19 19:23] LABS: INR 1.61; PROTHROMBIN TIME 20.3 seconds (11.9-14.5)
--- NOTE | 2019-12-19 19:45 | NUR ---
Spoke to Dr. Kwon, Radiology, he wants multiple attempts by nurses and ER department before coming out STAT for central line insertion.
[2019-12-19] MEDS ORDERED: SODIUM CHLORIDE 0.9% 500ML 500 ML ONE (20:07)
--- NOTE | 2019-12-19 20:38 | NUR ---
Right AC 20 g successful, central line placement will be routine in AM. Spoke to Radiology department.
[2019-12-19] MEDS: ZOLPIDEM TARTRATE 10 MG TAB PO PRN (23:02)
[2019-12-20] VITALS (7 sets, daily range): BP systolic 96–107; BP diastolic 62–70
[2019-12-20] MEDS: LEVOTHYROXINE SODIUM 100 MCG TAB PO SCH (04:26)
[2019-12-20] MEDS: MIDODRINE HCL 5 MG TABLET PO SCH ×3 (04:26→17:15)
[2019-12-20 05:28] LABS: BASOPHILS % 0.2 % (0.0-1.0); EOSINOPHILS % 0.2 % (0.0-6.0); HEMATOCRIT 39.5 % (34.2-44.1); HEMOGLOBIN 12.9 g/dL (12.0-16.0); LYMPHOCYTES # (AUTO) 0.6 (1.0-3.2); LYMPHOCYTES % 13.7 % (18.0-39.1); MEAN CORPUSCULAR HEMOGLOBIN 28.7 pg (28-32); MEAN CORPUSCULAR HGB CONC 32.7 g/dL (31-35); MEAN CORPUSCULAR VOLUME 87.8 fL (81-99); MONOCYTES # (AUTO) 0.4 (0.2-0.8); MONOCYTES % 9.4 % (4.4-11.3); NEUTROPHILS # (AUTO) 3.6 (2.1-6.9); NEUTROPHILS % 76.1 % (38.7-80.0); PLATELET COUNT 94 x10e3/uL (140-360); RED CELL DISTRIBUTION WIDTH 16.9 % (11.7-14.4)
[2019-12-20 05:57] LABS: ALBUMIN/GLOBULIN RATIO 1.9 (0.8-2.0); ANION GAP 20.7 mmol/L (8-16); CALCIUM 9.9 mg/dL (8.4-10.2); CREATININE, SERUM 2.85 mg/dL (0.57-1.11); POTASSIUM 3.7 mmol/L (3.5-5.1)
[2019-12-20 06:41] LABS: MAGNESIUM 2.5 MG/DL (1.3-2.1); PHOSPHORUS 4.8 MG/DL (2.3-4.7)
--- NOTE | 2019-12-20 07:21 | NUR ---
ASSUMED CARE. AWAKE AND ALERT. CONFUSED. ACYANOTIC. O2 SAT AT 96 PERCENT ON ROOM AIR. ATTEMPTED TO RE-ORIENT PATIENT. PT ENCOURAGED NOT TO GET OUT OF BED WITHOUT CALLING FOR ASSISTANCE. REINFORCMENT NEEDED. PT ASSISTED BACK TO BED. BED ALARM SET. NO DISTRESS NOTED. URINARY BARRIOS CATHETER SECURED TO LEG, NO KINKS NOTED, CLEAR YELLOW URINE DRAINING.
[2019-12-20] MEDS: PANTOPRAZOLE SOD 40 MG TABEC PO SCH (08:35)
[2019-12-20] MEDS: METOPROLOL SUCCINATE 25 MG TAB XL PO SCH (08:37)
[2019-12-20] MEDS: MAGNESIUM OXIDE 400 MG TAB PO SCH (08:49)
[2019-12-20] MEDS: MONTELUKAST SODIUM 10 MG TAB PO SCH (08:49)
[2019-12-20] MEDS: ASPIRIN 81 MG CHEW TAB PO SCH (08:49)
[2019-12-20] MEDS: AZELASTINE HCL 137 MCG NASAL SPRAY NS SCH ×2 (08:49→17:15)
[2019-12-20] MEDS: CYANOCOBALAMIN 1,000 MCG TAB PO SCH (08:49)
--- NOTE | 2019-12-20 10:48 | Progress Note ---
DATE: SUBJECTIVE: The patient is a 59-year-old female who came in with acute on chronic congestive heart failure with declining renal function, acute on chronic renal function, and also inability to walk and frequent falls and acute mental status changes. Currently, the patient looks very depressed, short of breath, did not sleep all night. Currently sleeping, easy to awake with signs of possible obstructive sleep apnea. PHYSICAL EXAMINATION: VITAL SIGNS: Temperature is 96.3, pulse of 84, respirations of 18, blood pressure is 106/67, pulse oximetry of 97% on room air. HEENT: Normocephalic. CVS: S1, S2 normal. Regular rate and rhythm. ABDOMEN: Nontender, nondistended. EXTREMITIES: Positive for edema. LABORATORY VALUES: From today, white count is 4.67, hemoglobin normal of 12.5, hematocrit of 39.1. Chemistry shows sodium 131, potassium is 3.7, BUN is 110, creatinine of 2.85, total bilirubin is 4.2 and total protein of 6.1. IMAGING STUDY: Done yesterday shows stable cardiomegaly and vascular congestion. ASSESSMENT: Ms. Evelia Larsen is a 59-year-old female with: 1. Acute on chronic renal failure. 2. Over-diuresis. 3. Volume depletion. 4. Orthostatic hypotension with low blood pressures. 5. History of atrial fibrillation, status post pacemaker. 6. Systolic and diastolic heart failure, combined. 7. Hypokalemia. PLAN: Replace potassium. Check magnesium and phosphorus, which is not back. IV albumin started yesterday or given yesterday and for myxedema, continue with thyroid replacement. Further recommendation per clinical course. We will continue to monitor the patient along with consultants. Holland Fritz MD ASJ/MODL /[id number]
[2019-12-20] MEDS ORDERED: POTASSIUM CHLORIDE 20MEQ/100ML 100 ML IV SCH (11:00)
--- NOTE | 2019-12-20 11:20 | NUR ---
PATIENT TRANSFERRED VIA BED BY RADIOLOGY STAFF AT APPROXIMATEY 1105 FOR INSERTION OF CENTRAL LINE. NO DISTRESS NOTED.
--- NOTE | 2019-12-20 12:41 | NUR ---
PATIENT ARRIVED TO UNIT VIA BED. RESPONDS TO SOUND. ORIENTED X3. NO DISTRESS NOTED. CENTRAL LINE (TRIPLE LUMEN) NOTED TO RIGHT CHEST WALL. NO REDNESS, WARMTH, SIGNS OF INFECTION NOTED.
--- NOTE | 2019-12-20 14:13 | Progress Note ---
DATE: 12/20/2019 Cardiology Progress Note SUBJECTIVE: No complaints today. OBJECTIVE: VITAL SIGNS: Temperature 96.2, heart rate 72, blood pressure 97/67, respiratory rate 20, O2 saturation 96%. GENERAL: Somnolent, looks chronically ill-appearing and fatigued. NECK: JVD distended. CHEST: With decreased breath sounds at bilateral bases. CARDIOVASCULAR: Regular rate and rhythm. Normal S1 and S2. Systolic ejection murmur. ABDOMEN: Soft. Bowel sounds positive. EXTREMITIES: 1+ edema, overall improved compared to her baseline. CARDIOVASCULAR MEDICATIONS: Reviewed. Aspirin 81 mg daily, metoprolol succinate 25 mg daily. STUDIES: Reviewed. Sodium 136, potassium 3.7, chloride 93, bicarbonate 21, BUN 110, creatinine 2.8. White blood cells 4.6, hemoglobin 12.9, platelets 94. INR 1.6. ASSESSMENT AND PLAN: 1. A 59-year-old woman presents with acute renal failure, electrolyte derangements, encephalopathy/somnolence. 2. Fatigue. 3. History of orthostatic hypotension. 4. Lymphedema. 5. Hypothyroidism. 6. Chronic systolic heart failure. 7. Atrial fibrillation. 8. PVCs. RECOMMENDENDATIONS: 1. Continue midodrine. 2. Consider further evaluation of the patient's somnolence. 3. Undergoing repletion for thyroid. 4. Consider ammonia check and ABG. 5. We will follow closely with you for now. Gentle hydration. MD GAETANO Moreno/BIJU /[id number]
--- NOTE | 2019-12-20 14:13 | Diagnostic Imaging Report ---
Central venous catheter insertion. History: Need for central venous access. Modality: Fluoroscopy and sonography. Sedation: None. Tester Electronic Scale: Igor Daigle MD. Charge Lpn: None. Approach: Right internal jugular vein Estimated blood loss: < 5 cc. Specimen: None. Fluoroscopy Time: 0.2 min. Reference Air Kerma (Ka, r): 2.24 mGy. Technique: Informed written consent was obtained. Discussion of risks, benefits, and alternatives were made with the patient. The patient expressed understanding and agreed to proceed. A universal timeout was performed prior to starting the procedure. All elements maximal sterile barrier technique was utilized for this procedure, including utilization of sterile scrub solution for skin prep, a large sterile sheet to cover the areas of the patient that were not prepped, and hand hygiene, mask, head covering, and sterile gown for performing radiologist and scrub technologist. The skin was anesthetized with 2% lidocaine. Ultrasound evaluation showed a patent and compressible right internal jugular vein, which was punctured under direct real-time ultrasound guidance with a micropuncture needle. An ultrasound image was saved to PACS. A microwire and sheath were placed. A 0.035 inch wire was placed through the sheath into the IVC. The tract was dilated. The 16 cm 7 [place]bourgish triple-lumen catheter was placed over the wire with its distal tip terminating at the cavoatrial junction. The ports were flushed and aspirated easily following placement. The catheter was sutured to the skin to secure its placement. Vital signs were monitored throughout the procedure by a nurse, and remained stable. The patient tolerated the procedure well and left the department in the same condition. Results: Spot radiograph of the chest demonstrates the new triple-lumen catheter to lie in the expected position with its tip overlying the cavoatrial junction. Impression: Successful, uncomplicated placement of a right internal jugular triple lumen catheter using sonographic and fluoroscopic guidance. The catheter is ready for immediate use. Signed by: Dr. Igor Daigle MD on 12/20/2019 2:10 PM
[2019-12-20] MEDS ORDERED: SODIUM CHLORIDE 0.9% 1000ML 1,000 ML IV ONE (14:15)
--- NOTE | 2019-12-20 16:02 | NUR ---
24 HR URINE CREATNINE CLEARANCE COLLECTION PROCESS BEGAN AT 1600 ON 12/20/2019. URINARY BARRIOS BAG EMPTIED PRIOR TO INITIATION OF PROCESS. URINARY BARRIOS BAG AND "ORANGE COLLECTION CONTAINER" CURRENTLY ON ICE.
--- NOTE | 2019-12-20 19:21 | NUR ---
PT SITTING ON TOILET. REPORT RECEIVED BY ONCOMING NURSE. NO DISTRESS NOTED. URINARY BARRIOS BAG ON ICE.
[2019-12-21] VITALS (7 sets, daily range): BP systolic 96–118; BP diastolic 66–80
[2019-12-21] MEDS: MIDODRINE HCL 5 MG TABLET PO SCH ×3 (05:29→18:00)
[2019-12-21] MEDS: LEVOTHYROXINE SODIUM 100 MCG TAB PO SCH (05:29)
[2019-12-21 05:51] LABS: ALBUMIN 3.7 g/dL (3.5-5.0); ALBUMIN/GLOBULIN RATIO 1.8 (0.8-2.0); ANION GAP 19.8 mmol/L (8-16); CALCIUM 9.5 mg/dL (8.4-10.2); CREATININE, SERUM 2.75 mg/dL (0.57-1.11); MAGNESIUM 2.4 MG/DL (1.3-2.1); PHOSPHORUS 4.6 MG/DL (2.3-4.7); POTASSIUM 3.8 mmol/L (3.5-5.1)
[2019-12-21] MEDS: PANTOPRAZOLE SOD 40 MG TABEC PO SCH (07:30)
--- NOTE | 2019-12-21 08:26 | Progress Note ---
DATE: SUBJECTIVE: The patient is a 59-year-old female with a history of acute on chronic congestive heart failure. The patient has been on diuresis holiday. Currently, no diuresis has been administered. She is having midodrine for her orthostatic hypotension. Still a bit awake today. Slept well. No chest pain. Positive for some shortness of breath on exertion, otherwise normal. OBJECTIVE: VITAL SIGNS: Temperature is 97.1, pulse of 85, respirations of 20, blood pressure is still 98/66, pulse oximetry of 97%. HEENT: Normocephalic and atraumatic. The patient is morbidly obese. CVS: S1 and S2 distant. Regular rate and rhythm. ABDOMEN: Nontender and nondistended. EXTREMITIES: With 4+ edema and also with lymphedema. LABORATORY VALUES: Chemistry shows; sodium 133, potassium 3.8, which is normalized. BUN of 114, creatinine of 2.7 and GFR of 18, which was stable. ALT, AST normal. Toxicology, all negative. ASSESSMENT: Ms. Evelia Larsen with: 1. Acute on chronic congestive heart failure. 2. Atrial fibrillation. 3. Hypothyroidism. 4. orthostasis. 5. Morbid obesity. 6. Electrolyte derangement. 7. Acute on chronic renal failure. 8. Lymphedema. PLAN: 1. Continue midodrine as mentioned above, diuretic holiday, repletion of thyroid. Continue to monitor the patient. Her ammonia has been checked in the past and was 185, possible liver problem. 2. Further recommendation per clinical course. We will continue to monitor the patient, and we will do an ultrasound of the liver. MD BRIANNE Dennis/MODL /[id number]
[2019-12-21] MEDS: CYANOCOBALAMIN 1,000 MCG TAB PO SCH (09:00)
[2019-12-21] MEDS: METOPROLOL SUCCINATE 25 MG TAB XL PO SCH (09:00)
[2019-12-21] MEDS: MAGNESIUM OXIDE 400 MG TAB PO SCH (09:00)
[2019-12-21] MEDS: ASPIRIN 81 MG CHEW TAB PO SCH (09:00)
[2019-12-21] MEDS: AZELASTINE HCL 137 MCG NASAL SPRAY NS SCH ×2 (09:00→17:00)
[2019-12-21] MEDS: MONTELUKAST SODIUM 10 MG TAB PO SCH (09:00)
--- NOTE | 2019-12-21 10:21 | Diagnostic Imaging Report ---
EXAM: US LIVER DATE: 12/21/2019 8:00 AM INDICATION: Elevated bilirubin COMPARISON: Renal ultrasound from 10/28/2019 FINDINGS: The visualized pancreas appears unremarkable. The liver is mildly enlarged measuring 19.4 cm in length and demonstrates a subtle nodular contour. No focal hepatic abnormalities are identified. The main portal vein is patent with antegrade flow and diameter of 1.2 cm, within normal limits. There is diffuse dilatation of the hepatic veins. The gallbladder surgically absent. There is no intra or extra hepatic biliary ductal dilatation. The common bile duct measures 6 mm. The right kidney is normal in size measuring 9.7 cm in length with normal cortical thickness/echogenicity. There is a possible subcentimeter cyst identified arising off the inferior pole of the right kidney. There is no evidence for solid renal mass, hydronephrosis, or shadowing calculi within the right kidney. The IVC appears prominent. There is dilatation of the distal abdominal aorta measuring up to 3.2 cm in maximal AP diameter. A trace amount of perihepatic ascites is noted. IMPRESSION: 1. Mild hepatomegaly and subtle nodular contour of the liver which can be seen in the setting of hepatic dysfunction. No focal hepatic abnormality identified. 2. Trace amount of perihepatic ascites. 3. Prominence of the hepatic veins and IVC which can be seen in the setting of right-sided heart failure. 4. Aneurysmal dilatation of the infrarenal abdominal aorta measuring up to 3.2 cm. Follow-up examination is recommended every 3 years. Signed by: Dr. Igor Daigle MD on 12/21/2019 10:18 AM
--- NOTE | 2019-12-21 15:47 | Progress Note ---
DATE: Cardiology Progress Note SUBJECTIVE: Tired, fatigued, weak. Denies chest pain or shortness of breath. OBJECTIVE: VITAL SIGNS: Temperature 96.6, heart rate 92, blood pressure 96/70 with a MAP of 79, respiratory rate 16, O2 saturation 96%, BMI of 40.8. GENERAL: Chronically ill-appearing, tired, somnolent. NECK: JVD noted to the lower half of neck. CHEST: Clear to auscultation. CARDIOVASCULAR: Regular rate and rhythm. Normal S1 and S2. Systolic ejection murmur 2/6. No S3 or S4. ABDOMEN: Soft. Bowel sounds positive. EXTREMITIES: 1+ edema. Warm extremities. CARDIOVASCULAR MEDICATIONS: Reviewed. The patient recently receiving levothyroxine 100 mcg daily, metoprolol succinate 25 mg daily, midodrine 5 mg t.i.d. LABORATORY DATA: Studies reviewed. Sodium 133, potassium 3.8, chloride 95, bicarbonate 22, BUN 114, creatinine 2.75, glucose 109, white blood cells 4.6, hemoglobin 12.9 platelets 94. PT 20, INR 1.6. AST 21, ALT 21, alkaline phosphatase 102, total bilirubin 4.1. ASSESSMENT: 1. A 59-year-old woman presents with volume depletion. 2. Acute renal failure. 3. Electrolyte derangements. 4. Encephalopathy. 5. Chronic systolic heart failure. 6. Atrial fibrillation status post ablation and premature ventricular contractions status post ablation with recurrent PVCs. RECOMMENDATIONS: 1. Continue midodrine. 2. As blood pressure allows metoprolol. 3. Liberalize sodium and fluid intake. 4. Appreciate Nephrology input. 5. Ongoing evaluation for the patient's changes and weakness. 6. Thyroid repletion ongoing. Noah Mejia MD AFV/MODL /[id number]
[2019-12-21 16:01] LABS: FREE T4 (FREE THYROXINE) 1.11 ng/dL (0.8-1.8); THYROID STIMULATING HORMONE 10.419 uIU/mL (0.350-4.940)
--- NOTE | 2019-12-21 16:38 | Consultation ---
DATE OF CONSULTATION: 12/20/2019 Endocrine Consultation This is a patient of Dr. Lino and Dr. Ju Rahman. Thank you very much for referring this patient. HISTORY OF PRESENT ILLNESS: This is a 59-year-old white female, who was referred to me for evaluation of hypothyroidism. The patient came to the hospital with history of extreme weakness and shortness of breath. She has long-standing history of chronic atrial fibrillation, congestive cardiac failure, bilateral lymphedema of the lower extremities and chronic renal failure. No history of thyroid problems in the past. She is on multiple medications at home. She is not on any amiodarone. PHYSICAL EXAMINATION: GENERAL: Today, the patient is alert, awake, and little bit apprehensive. She looks clinically hypothyroid. She has bilateral pedal edema. VITAL SIGNS: Her heart rate is around 70, blood pressure 136/86 mmHg. HEENT: Essentially unremarkable. CHEST: Bilateral vesicular breathing. She has bilateral bronchospasm and basilar rales. CARDIOVASCULAR: First and second heart sound. There is no 3rd or 4th heart sound. Ejection systolic murmur is grade 2/6. LABORATORY DATA: Her lab evaluation showed her TSH is significantly elevated at 16.46. BUN and creatinine are 114 and 2.75. Her hemoglobin is 12.9 and hematocrit is 39.5. CLINICAL IMPRESSION: 1. Hypothyroidism. 2. Congestive cardiac failure. 3. Chronic atrial fibrillation. 4. Morbid obesity with bilateral lymphedema. 5. Chronic renal failure. PLAN: At this time is to do free T4, TSH, antiperoxidase antibody, start her on Synthroid and gradually increase the dose. Thanks again for referring this patient. I will be following this patient with you. MD GENNA Pitts/BIJU /[id number]
[2019-12-21 17:45] LABS: CREATININE,URINE RANDOM 69.09 mg/dL (47-110); TOTAL PROTEIN 24HR, URINE 349.3 mg/24hr (50-100); TOTAL PROTEIN, URINE 49.9 mg/dL (1-14)
--- NOTE | 2019-12-21 19:25 | NUR ---
report given to oncoming nurse at this time, pt stable.
[2019-12-21] MEDS: BUMETANIDE 1 MG TAB PO SCH (19:29)
[2019-12-22] VITALS (8 sets, daily range): BP systolic 92–117; BP diastolic 57–79
[2019-12-22] MEDS: LEVOTHYROXINE SODIUM 100 MCG TAB PO SCH (06:05)
[2019-12-22] MEDS: MIDODRINE HCL 5 MG TABLET PO SCH ×3 (06:05→17:52)
[2019-12-22] MEDS ORDERED: LACTULOSE SYRUP 20 GM/30 ML UDC PO PRN (07:15)
[2019-12-22] MEDS: PANTOPRAZOLE SOD 40 MG TABEC PO SCH (07:30)
--- NOTE | 2019-12-22 08:11 | Progress Note ---
DATE: SUBJECTIVE: The patient comes in with acute renal failure, history of congestive heart failure, history of PPM. The patient currently is very dehydrated. The patient is very tired, fatigued, cannot make it to the bathroom without help, history of falls in the past. Medicines have been reviewed. OBJECTIVE: VITAL SIGNS: Temperature is 96.8, pulse of 85, respirations of 18, blood pressure is 92/79, pulse oximetry of 96%. HEENT: Normocephalic and atraumatic. GENERAL: The patient is stuporous. CVS: S1 and S2 normal. Regular rate and rhythm. LUNGS: Positive for crackles. ABDOMEN: Nontender and nondistended. EXTREMITIES: Positive for lymphedema and pedal edema. LABORATORY VALUES: Chemistries; TSH is 10.41, creatinine is 2.75 and 2.77, BUN is 114. No blood work was done today. We will order that. random. ASSESSMENT: Ms. Evelia Larsen is a 59-year-old female with acute on chronic congestive heart failure, atrial fibrillation, hypothyroidism, orthostatic hypotension, morbid obesity, electrolyte derangement, acute on chronic renal failure, and lymphedema. Repletion of thyroid has been done. Fluid resuscitation has been ordered. The patient's medicines have been reviewed. Ammonia level is up. Continue monitoring the patient. Liver ultrasound done yesterday showed mild hepatomegaly and subtle nodular contour of the liver, which relates to cirrhosis of the liver and trace amount of perihepatic ascites. PLAN: The patient is constipated. We will start the patient on some lactulose and continue to monitor the patient. Further recommendation per clinical course. MD BRIANNE Dennis/MODL /[id number]
[2019-12-22] MEDS: BUMETANIDE 1 MG TAB PO SCH (09:00)
[2019-12-22] MEDS: MAGNESIUM OXIDE 400 MG TAB PO SCH (09:00)
[2019-12-22] MEDS: ASPIRIN 81 MG CHEW TAB PO SCH (09:00)
[2019-12-22] MEDS: CYANOCOBALAMIN 1,000 MCG TAB PO SCH (09:00)
[2019-12-22] MEDS: AZELASTINE HCL 137 MCG NASAL SPRAY NS SCH ×2 (09:00→17:00)
[2019-12-22] MEDS: MONTELUKAST SODIUM 10 MG TAB PO SCH (09:00)
[2019-12-22] MEDS: METOPROLOL SUCCINATE 25 MG TAB XL PO SCH (09:00)
[2019-12-22 13:13] LABS: ANION GAP 23.7 mmol/L (8-16); CALCIUM 9.9 mg/dL (8.4-10.2); CREATININE, SERUM 2.56 mg/dL (0.57-1.11); POTASSIUM 3.7 mmol/L (3.5-5.1)
[2019-12-22] MEDS: ONDANSETRON HCL 4 MG ORAL DISINTEGRATING TAB PO PRN (17:53)
--- NOTE | 2019-12-22 18:28 | Progress Note ---
DATE: 12/22/2019 Cardiology Progress Note SUBJECTIVE: Tired, fatigued, nauseated, vomiting today. Denies chest pain or shortness of breath. OBJECTIVE: VITAL SIGNS: Temperature 95.2, heart rate 84, blood pressure 97/78, respiratory rate 22, and O2 saturation 96%. GENERAL: No acute distress. Alert. NECK: JVD to lower half of neck, sitting up at a 60-degree head of bed elevation. CHEST: Clear to auscultation. CARDIOVASCULAR: Regular rate and rhythm with normal S1 and S2. Systolic ejection murmur. No S3 or S4. ABDOMEN: Soft. Bowel sounds positive. EXTREMITIES: With chronic lymphedema, 1+ edema. CARDIOVASCULAR MEDICATIONS: Reviewed. 1. Magnesium oxide 400 mg daily. 2. Metoprolol succinate 25 mg daily. 3. Midodrine 5 mg t.i.d. 4. Bumetanide 2 mg daily. STUDIES: Reviewed. Sodium 133, potassium 3.8, chloride 95, bicarbonate 22, BUN 114, creatinine 2.77, and glucose 109. White blood cells 4.6, hemoglobin 12.9, and platelets 94. INR 1.6 and PT 20.3. AST 21, ALT 21, and alkaline phosphatase 102. ASSESSMENT: A 59-year-old woman with acute renal failure, electrolyte derangements, nausea, vomiting, deconditioning, hypothyroidism, chronic severe systolic heart failure, atrial fibrillation, history of premature ventricular contractions, lymphedema as well as orthostatic hypotension. RECOMMENDATIONS: 1. Continue midodrine and metoprolol at current dosing. Monitor blood pressure, particularly orthostatic BP reads. 2. Electrolyte derangements seem to be improved, however, renal function remains still above her baseline. Given nausea and vomiting at this point, we will liberalize p.o. fluid intake with caution/diseases management of any IV fluids at this point given persistent distended jugular vein on exam in the setting of severe systolic heart failure. Noah Mejia MD AFV/MODL /[id number]
--- NOTE | 2019-12-22 19:27 | NUR ---
walking rounds complete. pt stable at this time.
[2019-12-23] VITALS (8 sets, daily range): BP systolic 95–125; BP diastolic 69–82
[2019-12-23] MEDS ORDERED: MINERAL OIL 132 ML BTL PR ONE (05:30)
--- NOTE | 2019-12-23 06:02 | NUR ---
Patient c/o urine leaking outside of harper catheter. New order per Dr. Ford, ara to replace harper catheter. 15ml saline removed from 16Fr bulb. Catheter removed, tip intact. New harper 18Fr inserted with 10ml bulb using sterile technique. No c/o per patient. Tolerated well. Clear yellow urine noted in harper line. Addendum: 12/23/19 at 0609 by Linda Richardson RN Patient also c/o constipation and requesting a fleets enema. New order per Dr. Ford for fleets enema x1. Patient stated she wants to wait until she takes a shower. Will inform oncoming nurse.
[2019-12-23] MEDS: MIDODRINE HCL 5 MG TABLET PO SCH ×3 (06:10→17:07)
[2019-12-23] MEDS: LEVOTHYROXINE SODIUM 100 MCG TAB PO SCH (06:10)
[2019-12-23 06:43] LABS: ALBUMIN 3.7 g/dL (3.5-5.0); ALBUMIN/GLOBULIN RATIO 1.7 (0.8-2.0); ANION GAP 20.7 mmol/L (8-16); CALCIUM 9.8 mg/dL (8.4-10.2); CREATININE, SERUM 2.69 mg/dL (0.57-1.11); POTASSIUM 3.7 mmol/L (3.5-5.1)
--- NOTE | 2019-12-23 07:00 | NUR ---
RECEIVED REPORT FROM TEACHER OF THE EMOTIONALLY DISTURBED NURSE, PATIENT IS A&O X3, TELEMETRY BOX #26, NO DISTRESS NOTED, GLASSES ON, BARRIOS DRAINING TO GRAVITY, BED IS LOW AND LOCKED, SIDE RAIL UPX2, CALL LIGHT WITHIN REACH.
[2019-12-23] MEDS: PANTOPRAZOLE SOD 40 MG TABEC PO SCH (08:01)
[2019-12-23] MEDS: BUMETANIDE 1 MG TAB PO SCH (08:01)
[2019-12-23] MEDS: ASPIRIN 81 MG CHEW TAB PO SCH (08:01)
[2019-12-23] MEDS: MAGNESIUM OXIDE 400 MG TAB PO SCH (08:01)
[2019-12-23] MEDS: METOPROLOL SUCCINATE 25 MG TAB XL PO SCH (08:02)
[2019-12-23] MEDS: MONTELUKAST SODIUM 10 MG TAB PO SCH (08:02)
[2019-12-23] MEDS: CYANOCOBALAMIN 1,000 MCG TAB PO SCH (08:02)
[2019-12-23] MEDS: AZELASTINE HCL 137 MCG NASAL SPRAY NS SCH ×2 (09:48→17:07)
[2019-12-23] MEDS ORDERED: ALBUMIN 5% 0.05 GM/ML BTL IV ONE (12:30)
[2019-12-23] MEDS ORDERED: BUMETANIDE INJ 0.25MG/ML 4ML VIAL IV NR (12:45)
[2019-12-23] MEDS ORDERED: SOD PHOSPHATE/SOD BIPHOSPHATE ENEMA 132 ML BTL PR NR (13:00)
--- NOTE | 2019-12-23 16:06 | NUR ---
Nutrition Screen Note RD Recommendation for Physician: -Rec liberalizing diet to cardiac (Pt refused oral nutrition supplements) -Rec outpatient nutrition counseling and follow up for better adherence to CKD diet Plan of Care: RD following, monitoring for tolerance and adequacy Nutrition reason for involvement: LOS Primary Diagnose(s): Acute renal failure, electrolyte derangement, CHF PMH: congestive heart failure, acute renal failure, hypothyroidism Ht: 67in Wt: 261lb BMI: 40.9kg/m2 IBW: 135lb +/- 10% RD Assessment: (12/22) Chart reviewed. Labs and meds reviewed. 59yo F, who was admitted for hypokalemia and acute confusion. Potassium has improved. Visited pt in the room. Pt appeared to be fatigued. Pt denied any nausea, vomiting or abdominal pain today. However, her appetite has declined, due to current medical state. Pt didnt eat breakfast and ate 50% lunch today. No complain of chewing or swallowing difficulty. Pt refused oral nutrition supplements. Pt is not interested in any nutrition intervention. However, I think pt will benefit from nutrition counseling and follow up once d/c from [facility]. Will continue to monitor and follow. Current Diet: renal diet Malnutrition Evaluation (12/22) The patient does not meet criteria for a specified degree of malnutrition at this time. Will re-evaluate at follow-up as appropriate. Diet Education Needs Assessment: Diet education indicated, pt is not in an appropriate state for diet education. Nutrition Care Level: low Signed: Linda Currie, MS, RD, LD
--- NOTE | 2019-12-23 18:16 | NUR ---
PT HAD BOWEL MOVEMENT IN TOILET, CLEANED PATIENT UP, NEW DRAW SHEET PROVIDED IN BED. PATIENT ASSISTED BACK TO BED WITH WALKER. PATIENT ALSO REFUSING SCDS AND NON SKID SOCKS.
--- NOTE | 2019-12-23 19:00 | NUR ---
BEDSIDE REPORT RECEIVED FROM DAY RN. PT IS ALERT AND ORIENTED X3. RESPIRATIONS ARE EVEN AND UNLABORED. TELE ON. RT SUBCLAVIAN TL INTACT. BARRIOS TO GRAVITY. URINE CLEAR YELLOW IN COLOR. BILATERAL LOWER EXTREMITIES EDEMATOUS 4+. PT REQUIRE 2 STAFF TO HELP HER UP OFF TOILET. CALL LIGHT WITHIN REACH. BED IN LOW POSITION. DENIES PAIN. REFUSED CALAZYME CREAM TO BOTTOM.
--- NOTE | 2019-12-23 19:07 | NUR ---
GAVE REPORT TO ONCOMING NURSE, NO DISTRESS NOTED, BED IS LOW AND LOCKED, CALL LIGHT WITHIN REACH.
[2019-12-23] MEDS: ONDANSETRON HCL 4 MG ORAL DISINTEGRATING TAB PO PRN (21:03)
--- NOTE | 2019-12-23 22:37 | Progress Note ---
DATE: 12/23/2019 Cardiology Progress Note SUBJECTIVE: Restroom to bed with minimal assistance and feels somewhat better today, able to tolerate p.o. intake. OBJECTIVE: VITAL SIGNS: Temperature 97.6, heart rate 88, blood pressure 113/72, respiratory rate 20, O2 saturation 96%. GENERAL: In no acute distress. Alert. NECK: No JVD. CHEST: Clear to auscultation. CARDIOVASCULAR: Regular rate and rhythm. Normal S1, S2. ABDOMEN: Soft. Bowel sounds positive. EXTREMITIES: 1+ edema. CARDIOVASCULAR MEDICATIONS: Reviewed. Metoprolol succinate 25 mg daily, midodrine 5 mg t.i.d., albumin IV, bumetanide 1 mg once and 2 mg daily. STUDIES: Reviewed. Sodium 133, potassium 3.7, chloride 93, bicarbonate 23, BUN 115, creatinine 2.69, glucose 104. White blood cells 4.6, hemoglobin 12.9, platelets 94,000. PT 20.3, INR 1.61. AST 28, ALT 23, and alkaline phosphatase 113, total bilirubin 5.2. ASSESSMENT: A 59-year-old woman presents with acute renal failure, electrolyte derangements, volume depletion, and as mentioned atrial fibrillation status post ablation, premature ventricular contractions status post ablation, chronic severe systolic heart failure. Recommend continue current cardiovascular medications. I have discussed with Dr. Rahman coordinating care from renal and cardiac standpoint regarding volume management. The patient is receiving albumin and has been instructed to maintain close tabs of in's and out's with dietary recommendations provided. The patient has history of left atrial appendage ligation reported. Noah Mejia MD AFV/MODL /[id number]
[2019-12-24] VITALS (9 sets, daily range): BP systolic 90–111; BP diastolic 58–69
[2019-12-24] MEDS: LEVOTHYROXINE SODIUM 100 MCG TAB PO SCH (05:27)
[2019-12-24] MEDS: MIDODRINE HCL 5 MG TABLET PO SCH ×3 (06:10→16:48)
--- NOTE | 2019-12-24 07:24 | NUR ---
RECEIVED REPORT FROM EMERGENCY ROOM PHYSICIAN NURSE, PATIENT IS A&OX3, GLASSES ON, BARRIOS DRAINING TO GRAVITY, RT SUBCLAVIAN CENTRAL LINE SALINE LOCKED, TRAUMA REGISTRAR IN PLACE, BED IS LOW AND LOCKED, SIDE RAIL UPX2, CALL LIGHT WITHIN REACH.
[2019-12-24 07:40] LABS: BASOPHILS % 0.1 % (0.0-1.0); HEMATOCRIT 39.3 % (34.2-44.1); HEMOGLOBIN 12.9 g/dL (12.0-16.0); LYMPHOCYTES # (AUTO) 0.5 (1.0-3.2); LYMPHOCYTES % 6.7 % (18.0-39.1); MEAN CORPUSCULAR HEMOGLOBIN 28.9 pg (28-32); MEAN CORPUSCULAR HGB CONC 32.8 g/dL (31-35); MEAN CORPUSCULAR VOLUME 87.9 fL (81-99); MONOCYTES # (AUTO) 0.6 (0.2-0.8); MONOCYTES % 7.8 % (4.4-11.3); NEUTROPHILS # (AUTO) 6.8 (2.1-6.9); NEUTROPHILS % 84.8 % (38.7-80.0); PLATELET COUNT 73 x10e3/uL (140-360); RED BLOOD COUNT 4.47 x10e6/uL (3.6-5.1); RED CELL DISTRIBUTION WIDTH 17.5 % (11.7-14.4)
[2019-12-24 07:56] LABS: ALBUMIN 3.9 g/dL (3.5-5.0); ALBUMIN/GLOBULIN RATIO 1.9 (0.8-2.0); ANION GAP 20.9 mmol/L (8-16); CREATININE, SERUM 2.68 mg/dL (0.57-1.11); MAGNESIUM 2.3 MG/DL (1.3-2.1); POTASSIUM 3.9 mmol/L (3.5-5.1)
[2019-12-24] MEDS: AZELASTINE HCL 137 MCG NASAL SPRAY NS SCH ×2 (08:08→16:09)
[2019-12-24] MEDS: PANTOPRAZOLE SOD 40 MG TABEC PO SCH (08:08)
[2019-12-24] MEDS: BUMETANIDE 1 MG TAB PO SCH (08:09)
[2019-12-24] MEDS: MAGNESIUM OXIDE 400 MG TAB PO SCH (08:09)
[2019-12-24] MEDS: MONTELUKAST SODIUM 10 MG TAB PO SCH (08:09)
[2019-12-24] MEDS: ASPIRIN 81 MG CHEW TAB PO SCH (08:09)
[2019-12-24] MEDS: CYANOCOBALAMIN 1,000 MCG TAB PO SCH (08:10)
[2019-12-24] MEDS: METOPROLOL SUCCINATE 25 MG TAB XL PO SCH (09:13)
--- NOTE | 2019-12-24 11:28 | NUR ---
PAGED DR. BENJAMIN TO NOTIFY OF RT INNER GROIN PAIN AND REDNESS.
[2019-12-24] MEDS: ACETAMINOPHEN 325 MG TAB PO PRN ×3 (12:06→21:30)
--- NOTE | 2019-12-24 19:05 | NUR ---
GAVE REPORT TO ONCOMING NURSE.
--- NOTE | 2019-12-24 19:29 | NUR ---
RECEIVED PT IN BED A&OX3, , BARRIOS DRAINING TO GRAVITY, RT SUBCLAVIAN CENTRAL LINE SALINE LOCKED, TELEMETRY SHOWS PACING , RT GROIN RED AND SWOLLEN BED IS LOW AND LOCK. CALL LIGHT WITHIN REACH. CONTINUE TO MONITOR
[2019-12-24] MEDS ORDERED: SODIUM CHLORIDE 0.9% 250ML 250 ML ONE (20:38)
[2019-12-24] MEDS: CEFTRIAXONE SOD 1 GM/NS 50 ML 50 ML IV SCH (21:35)
[2019-12-24] MEDS: ZOLPIDEM TARTRATE 10 MG TAB PO PRN (21:35)
--- NOTE | 2019-12-24 23:46 | Progress Note ---
DATE: 12/24/2019 Cardiology Progress Note SUBJECTIVE: Evelia denies any chest pain or shortness of breath today. She feels better overall. OBJECTIVE: VITAL SIGNS: Temperature 97.7, heart rate 86, blood pressure 109/64, respiratory rate 19, O2 saturation 96%. BMI 40.8. GENERAL: No acute distress. Alert. NECK: JVD, distended to mid neck. CHEST: Clear to auscultation. CARDIOVASCULAR: Regular rate and rhythm. Normal S1, S2. Systolic ejection murmur. No S3 or S4. ABDOMEN: Soft. Bowel sounds positive. EXTREMITIES: 1+ edema. SKIN: With petechiae noted more pronounced to the lower extremities; however, also present on chest. CARDIOVASCULAR MEDICATIONS: Reviewed. Aspirin 81 mg daily, metoprolol succinate 25 mg daily, and midodrine 5 mg t.i.d. STUDIES: Reviewed. Creatinine 2.6, potassium 3.9, bicarbonate 21. White blood cells 8.04, hemoglobin 12.9, platelets 73, trending down. PT 20, INR 1.6. AST 27, ALT 23, alk phos 116, total bilirubin 6.4. Ultrasound of the abdomen noted with liver contour findings concerning for underlying liver cirrhosis. ASSESSMENT AND PLAN: 1. A 59-year-old woman presents with encephalopathy, thought to be metabolic related, likely multifactorial from undergoing liver disease, exacerbated by congestive hepatopathy, associated with transient volume depletion and electrolyte derangements. 2. Petechia and worsening thrombocytopenia. Monitor closely. If platelets less than 50,000 or significant bleeding ensues, please hold aspirin, consider further workup. However, suspect may be related to underlying liver disease. 3. Acute on chronic severe systolic heart failure. 4. Acute renal failure. 5. Hypokalemia, now improved. 6. History of orthostatic hypotension. 7. Atrial fibrillation. 8. Premature ventricular contractions. 9. Recommend continue beta shannon. The patient is status post prior left atrial appendage ligation, remote. Noah Mejia MD AFV/MODL /[id number]
[2019-12-25] VITALS (9 sets, daily range): BP systolic 83–98; BP diastolic 52–60
--- NOTE | 2019-12-25 06:29 | NUR ---
PT C/O PAIN AND GIVEN ORDERED PAIN MEDICATION .RT GROIN RED AND SWOLLEN .CALL LIGHT WITH IN REACH .CONTINUE TO MONITOR
[2019-12-25] MEDS: LEVOTHYROXINE SODIUM 100 MCG TAB PO SCH (06:52)
[2019-12-25] MEDS: MIDODRINE HCL 5 MG TABLET PO SCH ×3 (06:52→17:06)
--- NOTE | 2019-12-25 07:00 | NUR ---
BEDSIDE SHIFT REPORT RECEIVED FROM THE CENTRAL OFFICE OPERATOR RN. CALL LIGHT WITH IN EASY REACH. INSTRUCTED PT TO USE CALL LIGHT FOR ALL THE NEEDS. EDUCATED PT ABOUT FALL PRECAUTIONS. PT VERBALIZED UNDERSTANDING. BED IS LOW AND LOCKED. SIDE RAILS X2. BED ALARM IS ON. PT DENIES NEEDS AT THIS TIME.
[2019-12-25] MEDS: ACETAMINOPHEN 325 MG TAB PO PRN ×3 (07:19→22:06)
--- NOTE | 2019-12-25 07:22 | NUR ---
BEDSIDE REPORT GIVEN TO THE ONCOMING NURSE
--- NOTE | 2019-12-25 07:49 | Progress Note ---
DATE: SUBJECTIVE: The patient is a 59-year-old female, who comes in with acute renal failure, acute congestive heart failure, moderate edema, shortness of breath, elevated elevated LFTs and ammonia level. The patient is currently sleeping. Did not sleep all night. Use zolpidem for sleep. MEDICATIONS: Reviewed. The patient's levothyroxine has been adjusted for myxedema. PHYSICAL EXAMINATION: VITAL SIGNS: Temperature is 95.8, pulse is 86, respirations of 17, blood pressure is 85/55, pulse oximetry of 96 %. HEENT: Normocephalic and atraumatic. The patient is morbidly obese. CVS: S1-S2 distant. ABDOMEN: Protuberant. LUNGS: Positive for crackles. EXTREMITIES: Marked edema and non edema. Vascular changes. LABORATORY VALUES: White count is normal yesterday, hemoglobin of 12.9 and 39.3 yesterday. Today's sodium is 131, potassium is 3.9, BUN of 113, creatinine of 2.6 to date, has remained the same. BNP was 2733.9. PHYSICAL EXAMINATION: At this examination right lower extremity in the thigh, marked edema, erythema, and tenderness present. The patient had an extremity venous study. The result is not known yet. ASSESSMENT: Ms. Evelia Larsen with. 1. Acute on chronic congestive heart failure. 2. Acute renal failure. 3. Ecchymosis versus cellulitis of the right upper extremities. We will do a CBC today and antibiotics depending on the CBC. 4. Acute renal failure. Continue monitoring the patient's in's and out's, hyperkalemia improved significant orthostasis on midodrine, atrial fibrillation, continue on the patient is currently not taking any anticoagulation. Platelet count is at 73. Thrombocytopenia. Continue monitoring. Probably secondary to liver failure. PLAN: 1. CBC, CMP today. Check her white count to see if there is any need read reached need for Rocephin. 2. DVT study has been done, not reported probably negative. 3. Thrombocytopenia secondary to liver failure, liver failure and cirrhosis. Check ammonia levels to further recommendation per clinical course. We will try to avoid Ambien as much as possible secondary to its neurotoxic affects. Holland Fritz MD ASJ/MODL /[id number]
[2019-12-25] MEDS: PANTOPRAZOLE SOD 40 MG TABEC PO SCH (08:30)
[2019-12-25 08:57] LABS: BASOPHILS % 0.2 % (0.0-1.0); HEMATOCRIT 36.9 % (34.2-44.1); LYMPHOCYTES # (AUTO) 0.5 (1.0-3.2); LYMPHOCYTES % 11.5 % (18.0-39.1); MEAN CORPUSCULAR HEMOGLOBIN 28.6 pg (28-32); MEAN CORPUSCULAR HGB CONC 32.5 g/dL (31-35); MEAN CORPUSCULAR VOLUME 88.1 fL (81-99); MONOCYTES # (AUTO) 0.3 (0.2-0.8); MONOCYTES % 7.1 % (4.4-11.3); NEUTROPHILS # (AUTO) 3.7 (2.1-6.9); RED BLOOD COUNT 4.19 x10e6/uL (3.6-5.1); RED CELL DISTRIBUTION WIDTH 17.3 % (11.7-14.4)
[2019-12-25 08:59] LABS: PLATELET COUNT 50 x10e3/uL (140-360)
[2019-12-25] MEDS: AZELASTINE HCL 137 MCG NASAL SPRAY NS SCH ×2 (09:00→16:25)
[2019-12-25] MEDS: METOPROLOL SUCCINATE 25 MG TAB XL PO SCH (09:00)
[2019-12-25 09:19] LABS: CREATINE KINASE MB 1.5 ng/mL (0-5.0)
[2019-12-25 09:20] LABS: CREATININE,URINE RANDOM 62.95 mg/dL (47-110); TOTAL PROTEIN, URINE 28.5 mg/dL (1-14)
[2019-12-25 09:21] LABS: ANION GAP 17.6 mmol/L (8-16); CALCIUM 9.1 mg/dL (8.4-10.2); CREATININE, SERUM 2.87 mg/dL (0.57-1.11); POTASSIUM 3.6 mmol/L (3.5-5.1)
[2019-12-25] MEDS: ASPIRIN 81 MG CHEW TAB PO SCH (09:24)
[2019-12-25] MEDS: MONTELUKAST SODIUM 10 MG TAB PO SCH (09:24)
[2019-12-25] MEDS: BUMETANIDE 1 MG TAB PO SCH (09:24)
[2019-12-25] MEDS: CYANOCOBALAMIN 1,000 MCG TAB PO SCH (09:24)
[2019-12-25] MEDS: MAGNESIUM OXIDE 400 MG TAB PO SCH (09:24)
[2019-12-25 09:27] LABS: PROTEIN/CREATININE RATIO,URINE 0.45
--- NOTE | 2019-12-25 11:45 | NUR ---
PT IS WEAK . PAGED DR. BENJAMIN REGARDING AMMONIA LEVEL. INFORMED PT PLT LEVEL 50.
[2019-12-25] MEDS: SODIUM CHLORIDE 0.9% 1000ML 1,000 ML IV SCH (13:57)
--- NOTE | 2019-12-25 18:08 | Progress Note ---
DATE: 12/25/2019 Cardiology Progress Note SUBJECTIVE: Sleeping more and better. Denies chest pain or shortness of breath. No new complaints. OBJECTIVE: VITAL SIGNS: Temperature 96.9, heart rate 90, blood pressure 91/52, respiratory rate 16, and O2 saturation 94%. GENERAL: In no acute distress, alert. NECK: No JVD. CHEST: Clear to auscultation. CARDIOVASCULAR: Regular rate and rhythm. Normal S1, S2. Systolic ejection murmur. ABDOMEN: Soft. EXTREMITIES: 1+ edema. Stable. SKIN: Petechia, more pronounced in the lower extremities. MEDICATIONS: Reviewed, bumetanide 2 mg daily, aspirin 81 mg daily, metoprolol 25 mg daily, and midodrine 5 mg t.i.d. LABORATORY STUDIES: Reviewed. Remarkable for creatinine 2.8, BUN 120, potassium 3.6, bicarbonate 23, chloride 131. White blood cells 4.5, hemoglobin 12, and platelets 50. INR 1.6. AST 27, ALT 23, alkaline phosphatase 116, and total bilirubin 6.4. ASSESSMENT: A 59-year-old woman presents with acute renal failure, metabolic derangements, abnormal ultrasound, and elevated total bilirubin and INR concerning for liver disease. 1. Worsening thrombocytopenia associated with petechiae. 2. Cyvke-dq-enkmtcz severe systolic heart failure. 3. History of premature ventricular contractions. 4. History of paroxysmal atrial fibrillation. RECOMMENDATIONS: 1. Discontinue aspirin, given platelet counts continuing to drop, today at 50,000. 2. Consider thrombocytopenia workup. I suspect related to sequestration, however, cannot exclude drug-induced or other etiology. Defer to Primary Service. 3. Volume optimization per Nephrology. The patient received some fluids today. Monitor closely ventilatory oxygenation status given underlying heart failure. 4. Continue beta-shannon. 5. Midodrine, continue stable dose for now. Noah Mejia MD AFV/MODL /[id number]
--- NOTE | 2019-12-25 18:55 | NUR ---
BEDSIDE SHIFT REPORT GIVEN TO THE FREEZER UNLOADER RN. PT DENIED FURTHER NEEDS.
--- NOTE | 2019-12-25 19:31 | NUR ---
Received bedside report from day nurse. Patient resting in bed, no s/s of distress at this time. Bed locked and in low position, alarm on, call light placed within reach. All safety measures in place. Will continue to monitor.
[2019-12-25] MEDS: CEFTRIAXONE SOD 1 GM/NS 50 ML 50 ML IV SCH (20:37)
[2019-12-25] MEDS: ZOLPIDEM TARTRATE 5 MG TAB PO PRN (23:24)
[2019-12-26] VITALS (8 sets, daily range): BP systolic 86–102; BP diastolic 54–65
[2019-12-26] MEDS: SODIUM CHLORIDE 0.9% 1000ML 1,000 ML IV SCH ×3 (02:29→21:21)
[2019-12-26] MEDS: ACETAMINOPHEN 325 MG TAB PO PRN ×2 (02:29→20:08)
[2019-12-26 05:55] LABS: BASOPHILS % 0.2 % (0.0-1.0); HEMATOCRIT 37.3 % (34.2-44.1); HEMOGLOBIN 12.3 g/dL (12.0-16.0); LYMPHOCYTES # (AUTO) 0.5 (1.0-3.2); LYMPHOCYTES % 7.5 % (18.0-39.1); MEAN CORPUSCULAR HEMOGLOBIN 28.6 pg (28-32); MEAN CORPUSCULAR VOLUME 86.7 fL (81-99); MONOCYTES # (AUTO) 0.4 (0.2-0.8); MONOCYTES % 6.5 % (4.4-11.3); NEUTROPHILS # (AUTO) 5.6 (2.1-6.9); NEUTROPHILS % 84.4 % (38.7-80.0); PLATELET COUNT 58 x10e3/uL (140-360); RED CELL DISTRIBUTION WIDTH 17.4 % (11.7-14.4)
[2019-12-26] MEDS: LEVOTHYROXINE SODIUM 100 MCG TAB PO SCH (06:17)
[2019-12-26] MEDS: MIDODRINE HCL 5 MG TABLET PO SCH ×3 (06:17→17:38)
[2019-12-26 06:23] LABS: ALBUMIN 3.2 g/dL (3.5-5.0); ALBUMIN/GLOBULIN RATIO 1.5 (0.8-2.0); ANION GAP 18.8 mmol/L (8-16); CALCIUM 9.1 mg/dL (8.4-10.2); CREATININE, SERUM 3.04 mg/dL (0.57-1.11); POTASSIUM 3.8 mmol/L (3.5-5.1)
--- NOTE | 2019-12-26 07:00 | NUR ---
BEDSIDE SHIFT REPORT RECEIVED FROM THE SCHOOL LIBRARY MEDIA PROGRAM DIRECTOR RN. CALL LIGHT WITH IN EASY REACH. INSTRUCTED PT TO USE CALL LIGHT FOR ALL THE NEEDS. EDUCATED PT ABOUT FALL PRECAUTIONS. PT VERBALIZED UNDERSTANDING. BED IS LOW AND LOCKED. SIDE RAILS X2. BED ALARM IS ON. PT DENIES NEEDS AT THIS TIME.
--- NOTE | 2019-12-26 07:03 | NUR ---
Bedside report given to day nurse. Patient awake and sitting up in bed, no s/s of distress at this time. All safety measures in place.
--- NOTE | 2019-12-26 07:45 | Progress Note ---
DATE: SUBJECTIVE: This is a 59-year-old female with morbid obesity, heart failure, atrial fibrillation, and acute renal failure. Currently, the patient is still symptomatic. She is confused, a little fatigued, and we have done ammonia levels on her. The patient has been started on some antibiotic for right upper extremity erythematous process. PHYSICAL EXAMINATION: GENERAL: Alert and oriented, but goes back to sleep immediately. VITAL SIGNS: Temperature is 97.6, pulse of 87, respirations of 18, blood pressure is 86/57. Morbidly obese. HEENT: Normocephalic, atraumatic. Pupils are reactive. The patient has ecchymosis around her central line. CVS: S1 and S2 distant. Regular rate now. ABDOMEN: Soft, protuberant, and pendulous. EXTREMITIES: Right upper extremity with redness, which has minimized since yesterday. Positive for edema and positive for vascular changes. LABORATORY VALUES: Today's white count is 6.57, hemoglobin of 12.3, hematocrit of 37.3, neutrophil count was slightly elevated at 84.4. Chemistry shows sodium of 131, potassium 3.8, BUN of 123, creatinine of 3.04. Coags; INR is 1.6 on 12/18. Platelet count has gone up from 50 to 58. ASSESSMENT: Ms. Evelia rios with: 1. Thrombocytopenia. 2. Cvxyv-ou-mcdtwqi severe systolic heart failure. 3. Paroxysmal atrial fibrillation. 4. Morbid obesity. 5. Rdkot-mk-exdjgjy renal failure. 6. Volume depletion. 7. Volume overload to the patient. PLAN: I had a long discussion with the family yesterday and the sister yesterday. The patient's sister is leaning towards more palliative care in lieu of her medical condition and severity of her medical condition with her ongoing fluid imbalances and also electrolyte imbalances. The patient is getting tired according to the family and want more of a palliative step back care. Ammonia yesterday was 76 and with platelets and thrombocytopenia, most likely cirrhosis of liver is entertained. We will continue to monitor the patient and we will discuss with the consultants about ongoing treatment and also possible palliative care. Holland Fritz MD ASJ/MODL /[id number]
[2019-12-26] MEDS: MONTELUKAST SODIUM 10 MG TAB PO SCH (08:23)
[2019-12-26] MEDS: BUMETANIDE 1 MG TAB PO SCH (08:23)
[2019-12-26] MEDS: METOPROLOL SUCCINATE 25 MG TAB XL PO SCH (08:23)
[2019-12-26] MEDS: PANTOPRAZOLE SOD 40 MG TABEC PO SCH (08:23)
[2019-12-26] MEDS: CYANOCOBALAMIN 1,000 MCG TAB PO SCH (08:24)
[2019-12-26] MEDS: MAGNESIUM OXIDE 400 MG TAB PO SCH (08:24)
[2019-12-26] MEDS: AZELASTINE HCL 137 MCG NASAL SPRAY NS SCH ×2 (08:26→16:56)
[2019-12-26 09:12] LABS: LYMPHOCYTES % (MANUAL) 4 % (19-48); MONOCYTES % (MANUAL) 4 % (3.4-9.0); NEUTROPHILS % (MANUAL) 92 % (40-74)
[2019-12-26 09:13] LABS: ANISOCYTOSIS MODERATE; PLATELET ESTIMATE MARKEDLY DECREASED; PLATELET MORPHOLOGY COMMENT NORMAL; POIKILOCYTOSIS SLIGHT; RBC MORPHOLOGY COMMENT NORMAL
[2019-12-26 09:14] LABS: POLYCHROMASIA FEW
--- NOTE | 2019-12-26 19:00 | NUR ---
BEDSIDE SHIFT REPORT GIVEN TO THE INDUSTRIAL COFFEE GRINDER RN. PT DENIED FURTHER NEEDS.
--- NOTE | 2019-12-26 19:07 | Progress Note ---
DATE: 12/26/2019 Cardiology Progress Note SUBJECTIVE: Somnolent. Discussed at length. The patient opened to palliative care. At this point, addressed all questions. OBJECTIVE: VITAL SIGNS: Temperature 97.6, heart rate 85, blood pressure 92/65, respiratory rate 20, and O2 saturation 96%. GENERAL: Somnolent. HEENT: Icteric sclerae. Dry mucosa. NECK: JVD distended. CHEST: Decreased breath sounds at bilateral bases. CARDIOVASCULAR: Regular rate and rhythm. Normal S1 and S2. Systolic ejection murmur. No S3 or S4. ABDOMEN: Soft. Bowel sounds positive. EXTREMITIES: Lymphedema, somewhat more pronounced to bilateral lower extremities today. SKIN: Petechia. CARDIOVASCULAR MEDICATIONS: Reviewed. Bumetanide 2 mg daily, midodrine 5 mg t.i.d., and metoprolol succinate 25 mg daily. STUDIES: Reviewed. Sodium 131, potassium 3.8, chloride 94, bicarbonate 22, BUN 123, creatinine 3.04, and glucose 97. White blood cells 6.5, hemoglobin 12.3, and platelets 58. AST 20, ALT 18, alkaline phosphatase 110, and total bilirubin trending down to 4.8. ASSESSMENT AND PLAN: 1. A 59-year-old woman with wrfcy-sn-rvoiban renal failure. 2. Zaixy-fj-kkivedl severe systolic heart failure. 3. Liver cirrhosis with INR 1.6. Total bilirubin is 4.8. 4. Lymphedema. 5. Encephalopathy, toxic metabolic. 6. Premature ventricular contractions. 7. Atrial fibrillation. RECOMMEND: Extensive discussion with the patient today as well as with sister yesterday over phone. At this point, palliative care approach towards her care is preferred by the patient and family members. Continue current cardiovascular medications otherwise. We will be available as needed to coordinate care with Dr. Wang as well as family members. MD GAETANO Moreno/BIJU /[id number]
--- NOTE | 2019-12-26 19:28 | NUR ---
Received report from VIRIDIANA Fritz; Pt. appears to be resting comfortably without complaint of pain at this time; BLE edematous x 4. Will continue to monitor.
[2019-12-26] MEDS: CEFTRIAXONE SOD 1 GM/NS 50 ML 50 ML IV SCH (21:21)
[2019-12-27] VITALS (8 sets, daily range): BP systolic 96–107; BP diastolic 57–83
[2019-12-27] MEDS: ZOLPIDEM TARTRATE 5 MG TAB PO PRN (00:20)
[2019-12-27] MEDS: SODIUM CHLORIDE 0.9% 1000ML 1,000 ML IV SCH (05:30)
[2019-12-27] MEDS: MIDODRINE HCL 5 MG TABLET PO SCH ×3 (06:34→17:01)
[2019-12-27] MEDS: LEVOTHYROXINE SODIUM 100 MCG TAB PO SCH (06:35)
--- NOTE | 2019-12-27 06:41 | NUR ---
Dr. Fritz here to see patient. Received orders to put in consult for palliative care.
--- NOTE | 2019-12-27 07:04 | NUR ---
pt. remains in stable condition; report given to Thuy Hernandez RN
[2019-12-27 08:16] LABS: CREATININE,URINE RANDOM 39.29 mg/dL (47-110)
--- NOTE | 2019-12-27 08:29 | Progress Note ---
DATE: SUBJECTIVE: A 59-year-old female with a history of acute on chronic congestive heart failure, history of morbid obesity, history of lymphedema, acute renal failure currently still with varying creatinine function. Currently had a discussion again with sister and the patient. The patient wishes to go under palliative care in lieu for continue with renal problems and heart problems, and this has been ordered. OBJECTIVE: VITAL SIGNS: Temperature is 96.7, pulse of 90, respirations 16, blood pressure is 97/63, pulse oximetry of 95%. HEENT: Normocephalic and atraumatic. The patient has an IJN. CVS: S1 and S2. Regular. ABDOMEN: Protuberant. Ecchymosis present on the right upper thigh, which is better. The patient is currently getting Rocephin. EXTREMITIES: Positive for lymphedema and positive for 2+ edema. LABORATORY VALUES: White count is 6.57 yesterday, hemoglobin of 12.3, hematocrit of 37.8, and platelet count is 58, neutrophil count is 84.4. Coags; INR of 1.6. Chemistry; sodium 131, ALT and AST elevated, magnesium is 2.3 on a later date, and estimated GFR is 16. ASSESSMENT: Ms. Evelia Larsen is a 59-year-old female with; 1. Acute on chronic severe congestive heart failure. 2. Acute renal failure. 3. Morbid obesity. 4. Volume depletion. 5. Thrombocytopenia. 6. Paroxysmal atrial fibrillation. PLAN: As discussed above. We will go ahead and order palliative care today. The patient has a 24-hour urine going at this time. We will keep the Morton in for today. Reassess the patient's condition in the evening and will leave care to palliative care. Further recommendation per clinical course. I again had a long discussion with the patient and family, both agreeable with palliative care. We will continue and I will go ahead and consult Palliative Care. MD BRIANNE Dennis/TIERNEYL /[id number]
[2019-12-27] MEDS: MAGNESIUM OXIDE 400 MG TAB PO SCH (08:50)
[2019-12-27] MEDS: PANTOPRAZOLE SOD 40 MG TABEC PO SCH (08:50)
[2019-12-27] MEDS: MONTELUKAST SODIUM 10 MG TAB PO SCH (08:50)
[2019-12-27] MEDS: BUMETANIDE 1 MG TAB PO SCH (08:50)
[2019-12-27] MEDS: CYANOCOBALAMIN 1,000 MCG TAB PO SCH (08:50)
[2019-12-27] MEDS: AZELASTINE HCL 137 MCG NASAL SPRAY NS SCH ×2 (08:51→16:52)
--- NOTE | 2019-12-27 12:17 | NUR ---
patient sitting up. Call light within reach, personal belongings within reach. Instructed patient to use call light for assistance.
--- NOTE | 2019-12-27 12:20 | NUR ---
SPOKE EXTENSIVELY WITH SISTER AND PALLIATIVE NURSE VIA CONFERENCE CALL, SHE IS IN AGREEMENT TO GO TO [facility] TO KEEP DR BENJAMIN AND ALSO WANTS [facility], FILED CHOICE IN CHART AND FAXED CLINICALS TO HOSPICE.
--- NOTE | 2019-12-27 12:30 | NUR ---
Patient weak. 2 person assist to BSC by nurse and Dillan PCT
[2019-12-27] MEDS: METOPROLOL SUCCINATE 25 MG TAB XL PO SCH (12:38)
--- NOTE | 2019-12-27 15:38 | Progress Note ---
DATE: 12/27/2019 SUBJECTIVE: Sleeping. OBJECTIVE: VITAL SIGNS: Temperature 96.1, heart rate 89, blood pressure 107/57, respiratory rate 22, and O2 saturation 100%. GENERAL: Somnolent. NECK: JV distended to mid neck. CHEST: Decreased breath sounds in bilateral bases. CARDIOVASCULAR: Regular rate and rhythm. Normal S1, S2. ABDOMEN: Soft. Bowel sounds positive. EXTREMITIES: Chronic lymphedema. SKIN: With petechia. CARDIOVASCULAR MEDICATIONS: Reviewed. Bumetanide 2 mg daily, midodrine 5 mg t.i.d., and metoprolol succinate 25 mg daily. STUDIES: Reviewed. Potassium 3.8, bicarbonate 22, sodium 131, chloride 94, BUN 123, creatinine 3.19, and glucose 97. White blood cell 6.5, hemoglobin 12.3, and platelets 58. PT 20.3, INR 1.6. AST 20, ALT 18, alkaline phosphatase 110, and total bilirubin is 4.8. ASSESSMENT AND PLAN: A 59-year-old woman with ncmgh-tb-upeziyl systolic heart failure, cwwrt-dp-anmijfh renal failure, premature ventricular contractions, atrial fibrillation, orthostatic hypotension, chronic lymphedema, worsening overall condition and continues to have issues with encephalopathy, thought likely related to toxic metabolic infarct, I suspect due to hepatic encephalopathy in the setting of underlying liver cirrhosis. Platelets continue to remain low, possibly due to sequestration. The patient and family coordinating transition to palliative/hospice care per report. Continue for now with supportive management. We will be available as needed to assist with the care of Evelia, please call with any questions. Noah Mejia MD AFNuria/MODL /[id number]
--- NOTE | 2019-12-27 16:30 | NUR ---
Patient trying to get up by herself. Patient is very weak and states "I want to get to the bedside couch." Patient had a BM and needs to be cleaned.Refusing to lay down to be cleaned. Patient states, "I want to get to the bedside couch." Educated on safety precautions. Patient assisted to stand up to be cleaned between nurse, charge nurse Joe Zepeda RN , and [facility]. Assisted patient to bedside couch. Notified Bree, sister, of situation. Orders for big boy recliner received.
--- NOTE | 2019-12-27 18:30 | NUR ---
Notified Ara KEMP (housekeeping and laundry team leader) of billie quiroz chair order. Addendum: 12/27/19 at 1918 by KALIE DELAROSA RN billie orosco
--- NOTE | 2019-12-27 19:15 | NUR ---
Report given to oncoming nurse of patient's status. No s/s of acute distress noted. Side rails upx2, call light within reach, bed alarm on.
--- NOTE | 2019-12-27 19:30 | NUR ---
patient received awake, alert, lying quietly in bed. vss. no c/o pain noted. pm assessment complete. call harper placed within reach. patient instructed to call for assistance when needed.
[2019-12-27] MEDS: CEFTRIAXONE SOD 1 GM/NS 50 ML 50 ML IV SCH (20:00)
[2019-12-28] VITALS (8 sets, daily range): BP systolic 87–104; BP diastolic 50–79
--- NOTE | 2019-12-28 04:00 | NUR ---
2 very large soft bms throughout the night. skin and harper cath care provided each time.
[2019-12-28] MEDS: MIDODRINE HCL 5 MG TABLET PO SCH ×3 (05:23→15:59)
[2019-12-28] MEDS: LEVOTHYROXINE SODIUM 112 MCG TAB PO SCH (05:23)
[2019-12-28] MEDS ORDERED: LEVOTHYROXINE SODIUM 100 MCG TAB PO SCH (06:00)
--- NOTE | 2019-12-28 06:56 | Progress Note ---
DATE: SUBJECTIVE: This is a 59-year-old female with fahul-uw-eoqmiim congestive heart failure, acute renal failure, volume depletion, electrolyte abnormalities, morbid obesity, and history of atrial fibrillation. The patient is currently very dry, very lethargic, very tired. I did have a discussion with Palliative Care and Hospice yesterday. The patient's family and the patient are wishing to go home with assist services currently. No chest pain, but extremely fatigued and extremely tired. OBJECTIVE: VITAL SIGNS: Temperature is 96.0, pulse of 93, respirations of 21, blood pressure is 104/50, pulse oximetry of 97% on room air. HEENT: Normocephalic. The patient has very dry lips and dry mucosa. LUNGS: Decreased air entry. Positive for crackles. HEART: S1 and S2 regular. ABDOMEN: Protuberant, but soft. EXTREMITIES: Right lower extremity with erythema on the thigh and also extending all the way to the knee. LABORATORY VALUES: Have been not done in lieu of her possible leaving with hospice and/or palliative care. ASSESSMENT: An unfortunate 59-year-old female with. 1. Bszle-tk-azhiqhr severe congestive heart failure. 2. Acute renal failure. 3. Volume depletion. 4. Thrombocytopenia. 5. Cirrhosis of the liver. 6. Paroxysmal atrial fibrillation. 7. Morbid obesity. 8. Generalized debility. PLAN: Palliative care and/or hospice ordered. The patient can be discharged home today. Again, long discussion with family and the patient were done, agreeable on the above care. We will continue monitoring until the patient has gone hospice and is discharged home. MD BRIANNE Dennis/MODL /[id number]
[2019-12-28] MEDS: PANTOPRAZOLE SOD 40 MG TABEC PO SCH (08:39)
[2019-12-28] MEDS: CYANOCOBALAMIN 1,000 MCG TAB PO SCH (08:40)
[2019-12-28] MEDS: AZELASTINE HCL 137 MCG NASAL SPRAY NS SCH ×2 (08:40→15:59)
[2019-12-28] MEDS: BUMETANIDE 1 MG TAB PO SCH (08:40)
[2019-12-28] MEDS: MONTELUKAST SODIUM 10 MG TAB PO SCH (08:40)
[2019-12-28] MEDS: MAGNESIUM OXIDE 400 MG TAB PO SCH (08:40)
[2019-12-28] MEDS: METOPROLOL SUCCINATE 25 MG TAB XL PO SCH (08:40)
--- NOTE | 2019-12-28 11:00 | NUR ---
SPOKE WITH FAMILY THEY STATE A FAMILY MEMBER WILL BE COMING INTO [place] THIS WEEKEND AND EQUIPMENT FROM [facility] WILL BE DELIVERED ON WEDNESDAY. ERICA MONET [facility] STATES IF THEY ARE ABLE TO DELIVER SOONER THEY WILL CALL THE [employer]DLE [employer]CHOOL MATH TEACHER ORTHODONTIST ASSISTANT AND UPDATE ON DISCHARGE. SPOKE WITH NURSE NURSING INFORMATION SYSTEMS COORDINATOR WHOM STATES IT WAS OKAY TO DELAY DISCHARGE UNTIL WEDNESDAY.
--- NOTE | 2019-12-28 11:16 | NUR ---
When assessing patient , the patient requested the harper to be removed due to pain and wanting to be discharged today via hospice. This selling underwriter called the attending doctor- Dr. Fritz, who ordered the harper to be removed and a voiding trial to begin. Harper was removed at 921. Case management is following up with family for hospice and discharge orders. Will continue to monitor and follow up on voiding trial. Addendum: 12/28/19 at 1721 by Chel Hunter RN Patient had 2 very wet briefs during this shift. At this point there is no need to place the harper back.
--- NOTE | 2019-12-28 16:34 | NUR ---
Nutrition Screen Note RD Recommendation for Physician: -Rec liberalizing diet to cardiac (Pt refused oral nutrition supplements) Plan of Care: RD following, monitoring for tolerance and adequacy Nutrition reason for involvement: follow up Primary Diagnose(s): Acute renal failure, electrolyte derangement, CHF PMH: congestive heart failure, acute renal failure, hypothyroidism Ht: 67in Wt: 261lb BMI: 40.9kg/m2 IBW: 135lb +/- 10% RD Assessment: (12/27) Follow up. Hospice is being discussed per chart. Pt stated she has been eating about 50% of meals. No nausea, vomiting, diarrhea, or constipation reported at this time. No chewing/swallowing issues. Pt still refused oral nutrition supplements. Pt did not have any questions. Will continue to monitor. (12/22) Chart reviewed. Labs and meds reviewed. 59yo F, who was admitted for hypokalemia and acute confusion. Potassium has improved. Visited pt in the room. Pt appeared to be fatigued. Pt denied any nausea, vomiting or abdominal pain today. However, her appetite has declined, due to current medical state. Pt didnt eat breakfast and ate 50% lunch today. No complain of chewing or swallowing difficulty. Pt refused oral nutrition supplements. Pt is not interested in any nutrition intervention. However, I think pt will benefit from nutrition counseling and follow up once d/c from [facility]. Will continue to monitor and follow. Current Diet: renal diet Malnutrition Evaluation (12/22) The patient does not meet criteria for a specified degree of malnutrition at this time. Will re-evaluate at follow-up as appropriate. Diet Education Needs Assessment: RD is available for diet education as needed Nutrition Care Level: low Signed: Balbina Ayala, KVNG, LD
--- NOTE | 2019-12-28 18:27 | Progress Note ---
DATE: 12/28/2019 Cardiology Progress Note. SUBJECTIVE: No complaints today. OBJECTIVE: VITAL SIGNS: Temperature 96.7, heart rate 95, blood pressure 88/59, respiratory rate 26, O2 saturation 95%. GENERAL: No acute distress, and alert. NECK: JVD, distended. CHEST: Clear to auscultation. CARDIOVASCULAR: Regular rate and rhythm. Normal S1, S2. Systolic ejection murmur. ABDOMEN: Soft. Bowel sounds positive. EXTREMITIES: 1+ edema. CARDIOVASCULAR MEDICATIONS: Reviewed: 1. Midodrine 5 mg t.i.d. 2. Metoprolol succinate 25 mg daily. 3. Bumetanide 2 mg daily. STUDIES: Reviewed. Potassium 3.8, bicarbonate 22, creatinine 3.1. White blood cell 6.5, hemoglobin 12.3, and platelets 58. ASSESSMENT AND PLAN: A 59-year-old woman with acute on chronic kidney injury, acute on chronic systolic heart failure, paroxysmal atrial fibrillation, PVCs, orthostatic hypotension, lymphedema. RECOMMENDATIONS: Continue current care. Palliative care approach towards her care discussed with the patient. All questions answered. MD GAETANO Moreno/BIJU /[id number]
--- NOTE | 2019-12-28 19:25 | NUR ---
Patient received lying in bed. AAO x 2. patient had no complaints of pain. Respirations even and non-labored. Safety measures in place. Patient instructed to call for assistance when needed. Call light within reach.
--- NOTE | 2019-12-28 20:35 | NUR ---
Patient complained of pain in bilateral legs. Dr Fritz notified. New order received for Tramadol 50 mg Q6H PRN.
[2019-12-28] MEDS ORDERED: TRAMADOL HCL 50 MG TAB PO PRN (20:45)
--- NOTE | 2019-12-28 20:45 | NUR ---
Patient made comfortable and repositioned. Patient verbally consented to the use of Purewick. Purewick in place.
[2019-12-28] MEDS: CEFTRIAXONE SOD 1 GM/NS 50 ML 50 ML IV SCH (21:00)
[2019-12-28] MEDS ORDERED: SODIUM CHLORIDE 0.9% 250ML 250 ML ONE (21:13)
--- NOTE | 2019-12-28 21:22 | NUR ---
Patient stated she does not want telemetry box. New order received to discontinue telemetry recording.
[2019-12-29] VITALS (7 sets, daily range): BP systolic 86–107; BP diastolic 59–79
[2019-12-29] MEDS: LEVOTHYROXINE SODIUM 112 MCG TAB PO SCH (05:45)
[2019-12-29] MEDS: MIDODRINE HCL 5 MG TABLET PO SCH ×3 (06:00→16:25)
--- NOTE | 2019-12-29 07:00 | NUR ---
Patient resting comfortably. Bed-side report given to oncoming nurse.
--- NOTE | 2019-12-29 07:14 | Progress Note ---
DATE: SUBJECTIVE: The patient is a 59-year-old female with acute on chronic congestive heart failure, acute renal failure, morbid obesity, and metabolic acidosis. The patient is currently in palliative care and hospice. Still continue with the same medications on Rocephin, Bumex, levothyroxine, and pantoprazole. No chest pains. No shortness of breath. She was eager to go home and settle. Currently very tired, very fatigued, and dry mouth. PHYSICAL EXAMINATION: VITAL SIGNS: Temperature is 95.5, pulse 85, respirations of 16, blood pressure is 90/65, pulse oximetry of 96%. HEENT: Normocephalic and atraumatic. The patient has dry lips as mentioned above. CVS: S1 and S2. Irregular. ABDOMEN: Nontender and nondistended. EXTREMITIES: Positive for edema. Right-sided thigh with erythema tenderness and also edema. LABORATORY VALUES: None done since 12/25. MICROBIOLOGY: Urine culture did grow Enterococcus and Enterobacter, which is cefepime sensitive. ASSESSMENT: Ms. Suzie Altamirano with; 1. Acute on chronic severe congestive heart failure. 2. Acute renal failure. 3. Thrombocytopenia. 4. Cirrhosis of the liver. 5. Paroxysmal atrial fibrillation. 6. Morbid obesity. 7. Generalized debility. PLAN: Again palliative care/hospice. The patient is agreeable to be discharged. Family is accepting the patient home on Wednesday. For further information, look into the chart. The patient can be discharged with family's acceptable. MD BRIANNE Dennis/BIJU /[id number]
--- NOTE | 2019-12-29 08:27 | NUR ---
SPOKE WITH [facility], SHE STATES EQUIP WILL BE DELIVERED WEDNESDAY SO DISCHARGE WILL BE FOR WEDNESDAY, PRIOR TO HOLIDAY.
[2019-12-29] MEDS: AZELASTINE HCL 137 MCG NASAL SPRAY NS SCH ×2 (09:00→16:25)
[2019-12-29] MEDS: METOPROLOL SUCCINATE 25 MG TAB XL PO SCH (09:00)
[2019-12-29] MEDS: CYANOCOBALAMIN 1,000 MCG TAB PO SCH (09:10)
[2019-12-29] MEDS: BUMETANIDE 1 MG TAB PO SCH (09:10)
[2019-12-29] MEDS: PANTOPRAZOLE SOD 40 MG TABEC PO SCH (09:10)
[2019-12-29] MEDS: MONTELUKAST SODIUM 10 MG TAB PO SCH (09:10)
[2019-12-29] MEDS: MAGNESIUM OXIDE 400 MG TAB PO SCH (09:10)
--- NOTE | 2019-12-29 13:08 | NUR ---
Patient is refusing medications and meals. Patient was educated on the importance of eating and taking medications. Patient still adamant that she does not want to do that. Patient's sister, Bree, was called and informed of her current condition. Will continue to closely monitor. Patient is being turned [id number] with a team of 4 nurses and a purewick is also placed.
--- NOTE | 2019-12-29 13:17 | NUR ---
This patient is admitted under Dr. Fritz. This content writer noted that in the electronic chart and physical chart that the patient is a full code. Patient is to discharge home tomorrow with hospice. Hospice met with the family at home and did not come to the hospital. Patient has declined in the last day, not eating, not taking certain mediations. This content writer contacted Dr. Fritz to help further determine if the full code still stands or if she will become a DNR. Will follow up.
--- NOTE | 2019-12-29 14:25 | Progress Note ---
DATE: 12/29/2019 SUBJECTIVE: Sleeping, somnolent. OBJECTIVE: VITAL SIGNS: Temperature 96.3, heart rate 85, blood pressure 94/70, respiratory rate 20, O2 saturation 98%. GENERAL: Chronically ill-appearing, somnolent, dry mucosa. NECK: JVD to lower third. CHEST: Decreased breath sounds in bilateral bases. CARDIOVASCULAR: Regular rate and rhythm. Normal S1, S2. Systolic ejection murmur 1/6. ABDOMEN: Soft. Bowel sounds positive. EXTREMITIES: 1+ edema. SKIN: With petechia. CARDIOVASCULAR MEDICATIONS: Reviewed: Bumetanide 2 mg daily, midodrine 5 mg t.i.d., and metoprolol succinate 25 mg daily. STUDIES: Reviewed: Creatinine 3.19, potassium 3.8, bicarbonate 22. White blood cell 6.5, hemoglobin 12.3, platelets 58. INR 1.6 and total bilirubin 4.8. ASSESSMENT AND PLAN: A 59-year-old woman with: 1. Acute on chronic severe systolic heart failure, acute on chronic renal failure, lymphedema, deconditioning, liver cirrhosis with associated encephalopathy, thrombocytopenia. Palliative care approach towards her care. 2. Continue current cardiovascular medications. Assist the patient in goals of improving quality of life where as possible. We will continue to be available for the care of Evelia. Please call with any course. MD CastilloV/MODL /[id number]
[2019-12-29] MEDS: CEFTRIAXONE SOD 1 GM/NS 50 ML 50 ML IV SCH (21:12)
[2019-12-30] VITALS: BP 105/77
[2019-12-30] MEDS: ACETAMINOPHEN 325 MG TAB PO PRN (01:20)
[2019-12-30 04:00] VITALS: BP 94/64
[2019-12-30] MEDS: MIDODRINE HCL 5 MG TABLET PO SCH ×2 (05:47→12:08)
[2019-12-30] MEDS: LEVOTHYROXINE SODIUM 112 MCG TAB PO SCH (05:47)
[2019-12-30] MEDS: ONDANSETRON HCL 4 MG ORAL DISINTEGRATING TAB PO PRN (06:23)
--- NOTE | 2019-12-30 07:03 | Progress Note ---
DATE: SUBJECTIVE: The patient is DNR, is en route to be transferred to hospice. The patient's family has accepted and has prepared for hospice at home. No complaints of weakness. Complains of excessive tiredness. Has not been eating well. Medicines reviewed. OBJECTIVE: VITAL SIGNS: Temperature is 95.8, pulse of 81, respiration of 18, blood pressure is 94/64, pulse oximetry of 93%. HEENT: Normocephalic. The patient is dry. CVS: S1 and S2 normal. Regular rate and rhythm. ABDOMEN: Nontender and nondistended. EXTREMITIES: Positive for edema. Positive for erythema. Positive for vascular changes. LABORATORY VALUES: Has not been done. ASSESSMENT: Ms. Evelia Larsen with; 1. Acute on chronic severe congestive heart failure. 2. Acute on chronic renal failure. 3. Metabolic encephalopathy. 4. Morbid obesity. 5. Lymphedema. 6. Hypertension. PLAN: Continue monitoring. The patient will be discharged if possible today to palliative care and/or hospice with the family. MD BRIANNE Dennis/TIERNEYL /[id number]
--- NOTE | 2019-12-30 07:16 | NUR ---
REPORT GIVEN TO ONCOMING NURSE. AAOX3. NO SIGNS OF IV INFILTRATION R IJ. RESTING IN BED. BED LOCKED AND IN LOW POSITION. BED ALARM ON. CALL LIGHT WITHIN REACH.
[2019-12-30 08:04] VITALS: BP 108/64
[2019-12-30 08:28] VITALS: BP 108/64
[2019-12-30] MEDS: METOPROLOL SUCCINATE 25 MG TAB XL PO SCH (10:00)
[2019-12-30] MEDS: MONTELUKAST SODIUM 10 MG TAB PO SCH (10:00)
[2019-12-30] MEDS: BUMETANIDE 1 MG TAB PO SCH (10:00)
[2019-12-30] MEDS: MAGNESIUM OXIDE 400 MG TAB PO SCH (10:00)
[2019-12-30] MEDS: AZELASTINE HCL 137 MCG NASAL SPRAY NS SCH (10:01)
[2019-12-30] MEDS: CYANOCOBALAMIN 1,000 MCG TAB PO SCH (10:01)
[2019-12-30] MEDS: PANTOPRAZOLE SOD 40 MG TABEC PO SCH (10:01)
--- NOTE | 2019-12-30 10:20 | NUR ---
manager internship called and said hospice has arranged ambulance transport for 1400 today. manager internship said family is already aware of the discharge/transport home with hospice care. Notified Dr. Fritz. Orders received to dc patient home and remove central line prior to discharge. Spoke to the patient about plan of care for the day, she is in agreement.
--- NOTE | 2019-12-30 10:54 | NUR ---
Spoke with Divya Rosado with [facility]. States everything is set up. Transport is scheduled for 1400. VIRIDIANA Olsen was notified.
[2019-12-30 11:26] VITALS: BP 104/62
--- NOTE | 2019-12-30 13:40 | NUR ---
Central line was removed from right IJ with tip intact. Dressing applied to site.
[2019-12-30 14:00] VITALS: BP 126/78
--- NOTE | 2019-12-30 14:32 | NUR ---
Dressing site is clean dry and intact where central line was removed
== END 2019-12-30 15:19 | disposition hospice, home (50) | DRG 291 ==
LOC: ER 11:31 → ERHOLD 12:49 → MED/SURG2 14:28
PROVIDERS: ADMIT Family Medicine; ATTEND Family Medicine
PROC: 02HV33Z Insertion of Infusion Device into Superior Vena Cava, Percutaneous Approach (ICD-10-PCS; principal; 2019-12-20)
PROC: B548ZZA Ultrasonography of Superior Vena Cava, Guidance (ICD-10-PCS; 2019-12-20)
DX: I13.0 Hypertensive heart and chronic kidney disease with heart failure and stage 1 through stage 4 chronic kidney disease, or unspecified chronic kidney disease (principal); I50.33 Acute on chronic diastolic (congestive) heart failure; G92 Toxic encephalopathy; N17.9 Acute kidney failure, unspecified; Z68.41 Body mass index [BMI] 40.0-44.9, adult; E87.1 Hypo-osmolality and hyponatremia; I50.22 Chronic systolic (congestive) heart failure; R18.8 Other ascites; Z83.3 Family history of diabetes mellitus; E87.6 Hypokalemia; E66.01 Morbid (severe) obesity due to excess calories; I89.0 Lymphedema, not elsewhere classified; R53.81 Other malaise; E87.8 Other disorders of electrolyte and fluid balance, not elsewhere classified; E03.9 Hypothyroidism, unspecified; N18.3 Chronic kidney disease, stage 3 (moderate); I48.0 Paroxysmal atrial fibrillation; Z95.1 Presence of aortocoronary bypass graft; Z98.84 Bariatric surgery status; Z82.49 Family history of ischemic heart disease and other diseases of the circulatory system; Z86.718 Personal history of other venous thrombosis and embolism; Z91.041 Radiographic dye allergy status; I49.3 Ventricular premature depolarization; Z95.0 Presence of cardiac pacemaker; K59.00 Constipation, unspecified; K21.9 Gastro-esophageal reflux disease without esophagitis; Z66 Do not resuscitate; Z91.81 History of falling; I95.1 Orthostatic hypotension; K74.60 Unspecified cirrhosis of liver; R23.3 Spontaneous ecchymoses; D69.6 Thrombocytopenia, unspecified; Z51.5 Encounter for palliative care
CPT/HCPCS: 36415; 36556; 71045; 74470; 76705; 76937; 77001; 80048; 80053; 80307; 81001; 81050; 82140; 82550; 82553; 82570; 82575; 83735; 83880; 84100; 84156; 84439; 84443; 84484; 85025; 85610; 86376; 87086; 87186; 93005; 93971; 96361; 99285; C1751; J0696; J1940; J3480; J7030; J7040; J7050; P9045; Q0162